=== PATIENT | female | born 1940 | race Caucasian/White ===

== ENCOUNTER → 2017-08-20 10:40 | Outpatient (CLI) | payer MEDICARE, SELFPAY ==
--- NOTE | 2017-08-20 10:42 | DI.US.S_ITS ---
PROCEDURE: US ARTERIAL DUPLEX LE RT INDICATIONS: right lower leg pain with walking, imp with rest, recurs reg TECHNIQUE: Color and pulse Doppler interrogation was performed of the right lower extremity arterial system, with image documentation. COMPARISON: None. FINDINGS: Common femoral artery: 119 cm/sec, with triphasic flow. Deep femoral artery: 85 cm/sec, with triphasic flow. Proximal superficial femoral artery: 79 cm/sec, with triphasic flow. Mid superficial femoral artery: 81 cm/sec, with triphasic flow. Distal superficial femoral artery: 80 cm/sec, with triphasic flow. Popliteal artery: 60 cm/sec, with triphasic flow. Posterior tibial artery: 89 cm/sec, with biphasic flow. Anterior tibial artery/dorsalis pedis: 56 cm/sec, with biphasic flow. Freed-scale imaging description: Mild atheromatous plaque is present throughout the right lower extremity arteries. IMPRESSION: 1. No hemodynamically significant stenosis is visualized from the common femoral artery to the ankle. No sonographic findings to explain patient's claudication symptoms. Dictated by: Shraddha Sullivan M.D. on 08/20/2017 at 11:36 Approved by: Shraddha Sullivan M.D. on 08/20/2017 at 11:41
== END ==
PROVIDERS: Family Provider Physician Assistant; PCP Physician Assistant; Visit Provider Physician Assistant
DX: M79.604 Pain in right leg (principal)
CPT/HCPCS: 93926

== ENCOUNTER → 2018-09-14 07:46 | Outpatient (CLI) | payer MEDICARE, SELFPAY ==
[2018-09-14 09:34] LABS: Alanine Aminotransferase 34 IU/L (9-52); Albumin 4.1 g/dL (3.5-5.0); Albumin Globulin Ratio 1.5 (1.0-2.8); Alkaline Phosphatase 70 U/L (38-126); Aspartate Aminotransferase 30 IU/L (14-36); BUN Creatinine Ratio 21.1 (6-22); Bilirubin Total 0.5 mg/dL (0.2-1.3); Blood Urea Nitrogen 19 mg/dL (7-17); Calcium 9.8 mg/dL (8.4-10.2); Carbon Dioxide 30 mmol/L (22-32); Chloride 103 mmol/L (98-107); Cholesterol 223 mg/dL (140-199); Estimated Glomerular Filt Rate > 60.0 mL/min (>60); Globulin 2.8 g/dL (1.7-4.1); Glucose 101 mg/dL (80-110); HDL Cholesterol 72 mg/dL (40-60); HEMOLYSIS < 15 (0-50); LDL Cholesterol Calculated 134 mg/dL (<100); Potassium 4.5 mmol/L (3.4-5.1); Sodium 140 mmol/L (137-145); Total Protein 6.9 g/dL (6.3-8.2); Triglycerides 86 mg/dL (35-150)
[2018-09-14 09:53] LABS: Creatinine Urine Random 254.9 mg/dL
[2018-09-14 10:00] LABS: Microalbumi Creatinin Ratio Ur 7.8 ug/mg CR (<30)
== END ==
PROVIDERS: PCP Physician Assistant; Visit Provider Physician Assistant
DX: E78.5 Hyperlipidemia, unspecified (principal); I10 Essential (primary) hypertension
CPT/HCPCS: 36415; 80053; 80061; 82043; 82570

== ENCOUNTER → 2018-09-28 08:49 | Outpatient (CLI) | payer MEDICARE, SELFPAY ==
--- NOTE | 2018-09-28 08:50 | DI.MRI.S_ITS ---
PROCEDURE: MR LUMBAR SPINE WO CON INDICATIONS: Persistant low back pain with radiculopathy right side TECHNIQUE: Noncontrast sagittal T1 spin echo and T2 fast echo, sagittal STIR, axial T1 and T2 fast spin echo through the lumbar spine. In cases with scoliosis, additional coronal T2 fast spin echo may be performed. COMPARISON: None. FINDINGS: Image quality: Excellent. Alignment and Curvature: Suspect transitional anatomy with prominent S1-S2 disc. There is grade 1 anterolisthesis of L4 on L5 and minimal retrolisthesis of L5 on S1. Bone Marrow: Type degenerative endplate signal changes in lumbar spine. No acute vertebral body compression fractures. Spinal Cord: Conus medullaris terminates at the L1-L2 level. Visualized cord demonstrates normal signal and size. Paraspinous Soft Tissues: No paravertebral masses. Small right renal cysts are seen. L1-L2: Preserved disc height. There is mild disc desiccation. There is mild posterior disc bulge. Mild bilateral facet arthropathy and hypertrophy of ligamentum flavum. The central canal is patent. No foraminal stenosis. No nerve root impingement. L2-L3: Mild loss of disc height and mild disc desiccation. There is diffuse posterior and posterior lateral disc bulge. Mild bilateral facet arthropathy and hypertrophy of ligamentum flavum. The central canal is mildly narrowed. Severe right and moderate left foraminal stenosis. Right L3 nerve root impingement. L3-L4: Mild loss of disc height and mild disc desiccation. There is diffuse posterior bulge and posterior lateral disc bulge. Moderate bilateral facet arthropathy and moderate hypertrophy of ligamentum flavum. Epidural lipomatosis. The central canal is severely narrowed. Moderate bilateral foraminal stenosis. Possible bilateral L4 nerve root impingement. L4-L5: Moderate loss of disc height and mild disc desiccation. There is diffuse posterior bulge and larger right posterior lateral disc complex. Severe bilateral facet arthropathy and moderate hypertrophy of ligamentum flavum. Epidural lipomatosis. The central canal is severely narrowed. Severe right and [id number] left foraminal stenosis. There is right L5 nerve root impingement. L5-S1: Moderate loss of disc height and mild disc desiccation. There is diffuse posterior bulge and disc ossified complex. Mild bilateral facet arthropathy. The central canal is mildly narrowed. Moderate left and mild right foraminal stenosis. No discrete nerve root impingement. S1-S2: Normal. IMPRESSION: 1. Multilevel degenerative disc disease and facet arthropathy as described. 2. Severe central canal stenosis at L3-L4 and L4-L5. 3. Multilevel foraminal stenosis as described, most pronounced at L4-L5 on the right. 4. Suspect transitional anatomy. Please confirm vertebral level on radiographs prior to surgery and interventional procedures. Dictated by: Tim Daly M.D. on 09/28/2018 at 11:55 Approved by: Tim Daly M.D. on 09/28/2018 at 18:10
== END ==
PROVIDERS: PCP Physician Assistant; Visit Provider Physician Assistant
DX: M51.16 Intervertebral disc disorders with radiculopathy, lumbar region (principal); M54.5 Low back pain; M48.061 Spinal stenosis, lumbar region without neurogenic claudication
CPT/HCPCS: 72148

== ENCOUNTER → 2018-11-30 08:21 | Outpatient (CLI) | payer MEDICARE, SELFPAY ==
[2018-11-30 09:29] LABS: Add Manual Diff / Slide Review NO; Basophils Absolute Auto 0 /uL (0-100); Basophils Percent Auto 0.6 % (0-2); Eosinophils Absolute Auto 100 /uL (0-450); Eosinophils Percent Auto 1.8 % (2-4); Hematocrit 45.8 % (36-46); Hemoglobin 15.4 g/dL (12.0-16.0); Lymphocytes Absolute Auto 1600 /uL (1100-4500); Lymphocytes Percent Auto 19.9 % (25-40); Mean Corpuscular HGB Conc 33.7 % (30-36); Mean Corpuscular Volume 97.8 fL (80-100); Monocytes Absolute Auto 500 /uL (0-900); Monocytes Percent Auto 6.8 % (3-14); Neutrophils Absolute Auto 5600 /uL (1500-7000); Neutrophils Percent Auto 70.9 % (50-75); Platelet Count 237 X10^3/uL (150-400); Red Blood Cell Count 4.69 X10^6/uL (4.0-5.2); Red Cell Distribution Width 14.6 % (11.6-14.8); White Blood Cell Count 7.9 X10^3/uL (4.5-11.0)
[2018-11-30 09:40] LABS: BUN Creatinine Ratio 22.2 (6-22); Blood Urea Nitrogen 20 mg/dL (7-17); Calcium 10.1 mg/dL (8.4-10.2); Carbon Dioxide 25 mmol/L (22-32); Chloride 105 mmol/L (98-107); Estimated Glomerular Filt Rate > 60.0 mL/min (>60); Glucose 108 mg/dL (80-110); HEMOLYSIS < 15 (0-50); Potassium 4.1 mmol/L (3.4-5.1); Sodium 139 mmol/L (137-145)
== END ==
PROVIDERS: PCP Physician Assistant; Visit Provider Hospitalist
DX: Z01.810 Encounter for preprocedural cardiovascular examination (principal); Z01.818 Encounter for other preprocedural examination; Z01.811 Encounter for preprocedural respiratory examination
CPT/HCPCS: 36415; 80048; 85025; 93005

== ENCOUNTER → 2019-01-29 12:44 | Outpatient (CLI) | payer MEDICARE, SELFPAY ==
[2019-01-29 13:36] LABS: BUN Creatinine Ratio 18.8 (6-22); Blood Urea Nitrogen 15 mg/dL (7-17); Calcium 10.2 mg/dL (8.4-10.2); Carbon Dioxide 28 mmol/L (22-32); Chloride 103 mmol/L (98-107); Estimated Glomerular Filt Rate > 60.0 mL/min (>60); Glucose 116 mg/dL (80-110); HEMOLYSIS 16 (0-50); Potassium 4.8 mmol/L (3.4-5.1); Sodium 140 mmol/L (137-145)
== END ==
PROVIDERS: PCP Physician Assistant; Visit Provider Orthopaedic Surgery
DX: Z01.818 Encounter for other preprocedural examination (principal)
CPT/HCPCS: 36415; 80048

== ENCOUNTER 2019-02-10 05:59 | Inpatient (IN) | payer MEDICARE, SELFPAY ==
[2019-01-25 09:47] VITALS: BMI 29.3
[2019-02-10] VITALS (19 sets, daily range): BP systolic 122–159; BP diastolic 55–85; PULSE 56–80; RESP 10–18; TEMP 36.2–37.2; O2SAT 92–98; BMI 28.5
[2019-02-10] MEDS: LACTATED RINGERS 1,000 ML 42 ML IV ×2 (07:02→09:30)
--- NOTE | 2019-02-10 07:28 | PM.PREOP ---
Pre-operative Note Interval Note History & Physical reviewed/Exam performed by Physician: Yes Changes to H&P: No
[2019-02-10] MEDS: CEFAZOLIN 2 GM/100 ML FROZ.PIGGY IV ×3 (08:09→23:51)
--- NOTE | 2019-02-10 08:42 | SUR.OPER ---
Part 1: Right lateral on padded OR table. Head on pillow, gel axillary roll, pillow to support left arm. Legs flexed, pillows between legs, gel pad under down leg and ankle. Multiple passes of 3 inch cloth tape across shoulder, hip, upper and lower legs to secure patient on OR table.
--- NOTE | 2019-02-10 08:43 | SUR.OPER ---
Prone on spine table, head in foam head support, padded chest and pelvic supports, gel pad at knees, lower legs supported by pillows; nipples, genitalia and toes free of pressure, arms secured on foam padded arm boards at <90 degrees abduction. Tape over blanket at thigh secured to table.
[2019-02-10] MEDS: VANCOMYCIN 1,000 MG VIAL 1000 MG TOP (09:30)
[2019-02-10] MEDS: BUPIVACAINE 0.5% (PF) 4 ML, MORPHINE-PF 4 MG, BUTORPHANOL 1 MG, fentaNYL 100 MCG INJ (09:31)
[2019-02-10] MEDS: THROMBIN (RECOMBINANT) 5,000 UNIT VIAL 5000 UNIT TOP (09:31)
[2019-02-10] MEDS: SODIUM CHLORIDE 0.9% 1,000 ML, GENTAMICIN 80 MG IRR ×2 (09:32)
--- NOTE | 2019-02-10 10:42 | P.OP_ITS ---
Operative Date/Time/Diagnoses Date of procedure: 02/10/19 Time of procedure: 10:42 Pre-op diagnosis: Lumbar stenosis with radiculopathy Lumbar spondylolisthesis Lumbar scoliosis Post-op diagnosis: same Procedure & Clinicians Procedure: L4-5 anterior fusion with cage L4-5 posterior fusion with screws Iliac crest bone graft aspirate L4-5 laminectomy Use of microscope Placement of epidural catheter Same procedure as scheduled: Yes Indications: [age] year old female with intractable pain from stenosis. They had failed conservative management and requested operative intervention. Risks and benefits of surgery were discussed and appropriate consents were obtained. Surgeon: Ermias Rivera Resident Programs Assistant: Elif Abdi Anesthesia Type: General Operative Notes Findings: None Closure Type: primary Specimen(s): none sent Prosthetic devices, grafts, tissues, transplants, or devices: NuVasive XLIF cage and MAS Reline screws Applied: catheter Estimated Blood Loss (mL): 30 Blood products transfused: none Procedure in detail: Patient was brought to the operating room and intubated on the table. Time-out was performed. They were then rolled over to the lateral decubitus position with the [id number]. The table was bent and they were taped down in the correct position. X-rays were taken to confirm a true AP and lateral. Preoperative antibiotics were given. The left flank was prepped and draped in standard sterile fashion. Using fluoroscopy, a 3 cm incision was made above the iliac crest. We bluntly dissected down with Metzenbaum scissors and split the 3 abdominal muscle layers. We dissected out the retroperitoneal space and using finger guidance, brought our 1st dilator down to the psoas muscle. Using neuromonitoring and fluoroscopy, we placed it through the psoas onto the L4-5 disc space in an anterior position and gradually pulled the dilator posteriorly along the disc space. We placed our guidewire and measured our depth for the retractor. We then dilated with the next 2 dilators and then placed our retractor over the dilators. Position was confirmed with fluoroscopy and the retractor was locked down to the bar. We opened up the retractor and checked with neuro monitoring. We then placed the ramya and again checked with neuro monitoring. The retractor was opened further and the ALL retractor was placed. An annulotomy was performed. We then performed a complete diskectomy with ring curette, pituitary, box osteotome. A Jordan was advanced across the disc space under fluoroscopy to release the lateral annulus on the opposite side. We then used sequentially larger trials and confirmed under fluoroscopy. An XLIF cage was packed with Osteocel bone graft and impacted into the L4-5 disc space with fluoroscopy for the anterior fusion at this level. The wound was irrigated. The retractor was closed down. The ramya was removed. We carefully removed the retractor with direct visualization to make sure there was no neurovascular or abdominal injury. Final x-rays were taken. The muscle fascia was closed, superficial tissue was closed. The skin was closed. Sterile dressing was placed. The patient was then rolled over on the well-padded prone position on the Demario table. Using fluoroscopy for localization, a 5 cm incision was made to the well-marked right of the midline. Bovie used to split the fascia. We then used fluoroscopy and neural monitoring to a percutaneously placed Jamshidi needles down the right pedicles of L4 and L5. These were changed out over guidewires, tapped and screw shanks were placed. We then opened up the retractor. The posterolateral gutter was opened up and the transverse processes of L4 and L5 were decorticated. We cleared medially. We brought in the microscope. A right-sided laminectomy was performed at L4-5 using a bur and Kerrison rongeur is. We carefully depress the dura and went across the midline to decompress the entire canal on both sides. We cleared out the facet hypertrophy and removed the entire medial facet as well as part of the lateral half of the facet and cleared out the neural foramen. In the end the ball probe could be swept cephalad caudally across the midline out through the foramen and everything was wide open. An epidural catheter was primed with 4mL of 0.5% bupivacaine, 100 mcg fentanyl, 4 mg Duramorph, 1 mg Stadol. The dura was depressed under the cephalad lamina with a ball probe and the epidural catheter was gently advanced 6 cm cephalad. The screw heads were placed on the shanks, a rashad was measured, placed and the set screws locked down. The wound was copiously irrigated. A small stab incision was made over the PSIS and a Jamshidi needle was placed into the iliac crest and several mL of bone marrow was aspirated. This was mixed with our locally harvested bone graft as well as the remaining Osteocel and placed in the posterolateral gutter for fusion at L4-5. The fascia was then closed. The epidural was then injected without resistance. The catheter was pulled and we closed more over the fascia. We then made a 4 cm incision on the left side with fluoroscopy. We split down through the fascia with Bovie. We again percutaneously placed Jamshidi needles down the left pedicles of L4 and L5 with fluoroscopy and neural monitoring. These were changed over guidewires to tapped and screws. A rashad was placed and locked down. Final x-rays were taken. The wound was irrigated. The fascia was closed. Vancomycin powder was placed in the wounds. The superficial and skin were closed. Sterile dressing was placed. The patient was then rolled over, extubated, brought to the recovery room with no complications. Complications: none Post-operative Condition: stable Disposition: PACU Plan for aftercare: Inpatient. Up with therapy.
[2019-02-10] MEDS: HYDROMORPHONE 2 MG INJ 0.5 MG IV (11:19)
[2019-02-10] MEDS: LACTATED RINGERS 1,000 ML 125 ML IV ×3 (13:46→22:04)
[2019-02-10] MEDS: CELECOXIB 200 MG CAPSULE 400 MG PO (13:54)
--- NOTE | 2019-02-10 15:39 | PT.IIE ---
this is to certify that i have reviewed this documentation and is involved with this pt's care. Current Diagnoses Spondylolisthesis, lumbar region (02/10/19) Spinal stenosis, lumbar region with neurogenic claudication (02/10/19) Strain of muscle, fascia and tendon of lower back, initial encounter (02/10/19) Surgery Performed Operation Date: 02/10/19 07:45 Actual Procedures p L45 anterior & posterior instrumentated fusion w/ bone graft, L45 laminectomy - Ermias Rivera MD Surgical History (Last Updated 01/25/19 @ 10:13 by Rosalva Hendrickson RN) History of colonoscopy (Acute) Hx of bilateral cataract extraction (Acute) Hx of dilation and curettage (Acute) Hx of tonsillectomy (Acute) Medical History (Last Updated 01/25/19 @ 10:13 by Rosalva Hendrickson RN) Anxiety about health (Acute ~01/2019) Arthritis (Acute) Back pain (Acute) Basal cell carcinoma (Resolved Unknown) Bilateral sciatica (Chronic ~04/2017) COPD (chronic obstructive pulmonary disease) (Chronic Unknown) Hyperlipidemia (Chronic Unknown) Hypertension (Chronic Unknown) Numbness and tingling (Acute) Osteopenia (Chronic 10/2012) Pneumonia (Acute) Rosacea (Chronic Unknown) Sciatica (Acute) Physical Therapy Inpatient Evaluation/Re-Eval M1 PT/OT-IP Prior Functional Status Start: 02/10/19 16:56 Freq: NEEDED Status: Active Protocol: Document 02/10/19 15:39 MT (Rec: 02/10/19 17:28 MT [email or web address]) Medical Review Prior Functional Status Medical History Reviewed Yes Diet/Fluid Consistency Regular Communication Pt able to make needs known Mobility and Gait Pt reports being independent with all gait and mobility without use of AD. Activities of Daily Living and IADL's Pt reports being independent with all ADL's Social History Household Members none Living Arrangements House Number of Floors (Floors) One Floor Number of Stairs To Enter/Railing? 5 stairs, handrail on both sides and able to reach both at the same time Home Environment High Toilet,Tub/Shower Home Equipment Front Wheel Walker,Four Wheel Walker,Straight Cane,Raised Toilet Seat w/Armrests,Shower Seat with Backrest,Hand Held Shower,Long Handled Sponge, Sock Aid Employment Status Unemployed Additional Social History Comment firend will be staying with pt until gi. Pt says that her friend uses a cane and is more frail, so will not be able to help her with heavier activities M2 PT-IP Current Condition Start: 02/10/19 16:56 Freq: NEEDED Status: Active Protocol: Document 02/10/19 15:39 MT (Rec: 02/10/19 17:28 MT [email or web address]) Physical Therapy Current Condition Current Condition Evaluation Date 02/10/19 Treatment Diagnosis reduced ability with gait and impaired mobility s/p L4-5 spinal fusion Onset Date 02/10/19 Precautions Lumbar Precautions Log Roll,No Twisting,Limit Bending,Lifting Restriction of 10 lbs,Gait Belt above Incisional Area M3 PT-IP Subjective Start: 02/10/19 16:56 Freq: NEEDED Status: Active Protocol: Document 02/10/19 15:39 MT (Rec: 02/10/19 17:28 MT [email or web address]) Subjective Physical Therapy Visit Type Type Initial Evaluation Visit Start Time 15:39 Visit Stop Time 16:19 Total Visit Minutes 40 Number of COUNTY [place] Visits 0 Physical Therapy Visit Comments Patient Comments Pt was agreeable to participate in PT eval Therapy Pain Assessment Pain When Pain Assessed At Rest Pain Present Pain Present Denied Pain M4 PT-IP Mobility and Gait Start: 02/10/19 16:56 Freq: NEEDED Status: Active Protocol: Document 02/10/19 15:39 MT (Rec: 02/10/19 17:28 MT [email or web address]) PT-Bed Mobility Assessment Rolling Type of Rolling Log Rolling,Roll to Right Level of Assist Moderate Assistance Supine to Sit Supine to Sit Minimal Assistance,1 Person Assistance Scooting Scooting to Edge of Bed Contact Guard Assistance, Minimal Assistance Scooting Up and Down in Bed Contact Guard Assistance PT-Transfer Assessment Sit to and From Stand Sit to and from Stand Minimal Assistance,Moderate Assistance,1 Person Assistance Equipment Transfer Assistive Device Gait Belt,Front Wheeled Walker Orthotic/Prosthetic Devices or Brace: No Transfers Transfer Destination Chair Transfer Technique Stand Step Pivot Transfer Ability Level of Assist Minimal Assistance,Moderate Assistance,1 Person Assistance Comments Mobility Comments Pt was educated on log roll technique and was able to perform with modA and maximal cueing for sequencing and hand placement to push off from. Pt performed sit to stand with Stella and 2WW. Pt initiated walking and was going to continue ambulating and said that she was feeling fine and had no symptoms of dizziness, but was exhibiting shakiness and signs of confusion, so was asked to sit in the chair and required ModA for the stand to sit portion of the transfer . Gait Assessment Gait Gait Assistance Required: Minimum Assistance,Moderate Assistance Able to Maintain Weight Bearing Status Yes During Gait Assistive Devices Assistive Device Gait Belt,Front Wheeled Walker Orthotic/Prosthetic Devices or Brace: No Gait Deviations General Gait Pattern Antalgic,Decreased Stride Length,Decreased Feet Clearance,Step-to Gait Factors Limiting Gait Function Factors Limiting Gait Function Decreased Activity Tolerance, Decreased Sensation,Decreased Strength,Difficulty Following Directions,Incoordination, Limited Range of Motion,Pain, Poor Balance,Poor Safety Awareness Comments Gait Comments Patient took 3 steps and was going to continue with ambulation. She reported that she felt like she could continue walking, but was increasing to a modA and was demonstrating signs of shakiness and increased confusion with following directions, so she was asked to sit and vital signs were assessed. BP 136/73, O2 was 94%, and Hr was 67. She reported no symptoms of light- headedness or dizziness. She was positioned in her chair with her table and call light in reach and nursing was notifed of her position and to place a chair alarm on her due to her increased confusion . PT-Balance Assessment Sitting Balance and Reactions Static Sitting Balance Ability Good Dynamic Sitting Balance Ability Good Standing Balance and Reactions Static Standing Balance Ability Fair Dynamic Standing Balance Ability Fair Device Used 2WW M5 PT-IP Objective Assessments Start: 02/10/19 16:56 Freq: NEEDED Status: Active Protocol: Document 02/10/19 15:39 MT (Rec: 02/10/19 17:28 MT [email or web address]) Orientation Orientation/Cognition Level of Alertness Confusional State Orientation Name,Place,Situation Language Function Ability No Deficits Noted Safety Awareness Decreased Safety Awareness Memory Description Short Term Impaired Comments Pt appeared oriented and was able to make needs known. Towards the end of the session when pt was standing, she began showing signs of confusion and was having difficulty with following directions. She reported that she felt like she could continue walking, but was showing increased signs of weakness and fatigue, so her safety awareness was impaired. Gross Range of Motion Lower Extremity ROM Assessment Within Functional Limits Strength Lower Extremity Strength Assessment Within Functional Limits Comments Strength Comments Pt presented with B LE strength WFL. Sensation Assessment Comments Sensation Comments Pt reported during ambulation that her legs felt wonky, but reported that she had full feeling and sensation in her legs Muscle Tone Muscle Tone WNL Yes M6 PT-IP Treatment Start: 02/10/19 16:56 Freq: NEEDED Status: Active Protocol: Document 02/10/19 15:39 MT (Rec: 02/10/19 17:28 MT [email or web address]) Physical Therapy Treatment Education Education Provided Precautions,Post-Op Packet, Safety M7 PT-IP Assessment and Plan Start: 02/10/19 16:56 Freq: NEEDED Status: Active Protocol: Document 02/10/19 15:39 MT (Rec: 02/10/19 17:28 MT [email or web address]) PT Summary Assessment and Plan Potential Rehabilitation Potential Good Status of Condition at Evaluation Evolving Summary Impairments Pain,ROM,Strength,Balance, Coordination,Sensation, Cognition,Bed Mobility, Transfers,Gait,Activity Tolerance Assessment Summary Pt presents to PT s/p L4/L5 spinal fusion. She was educated on her precautions and safety. Pt was educated on log rolling technique for her bed mobility. Pt was generally able to perform mobilty with ModA and 2WW. Durring, initiation of ambulation, pt became shakey and showed signs of confusion and was asked to sit down in chair instead. Pt shows decreased safety awareness, decreased activity tolerance, and increased unsteadiness putting her at a high fall risk. She would benefit from discharge to a SNF or 24/7 assistance at home depending on level of care that she requires. Caregiver training should be given if needed. Pt' s progress with ambulation and stairs will continued to be assessed in order to determine appropriate discharge destination. Goals Bed Mobility Goal Standby Assistance Transfer Goal Standby Assistance,Front Wheeled Walker Gait Goal Standby Assistance,Front Wheel Walker Gait Distance 150 ft Other Goals 5 stairs with bilateral handrail SBA Days to Meet Goals 5 Frequency of Treatment Frequency Of Treatment Twice a Day Treatment Plan Physical Therapy Treatment Plan Bed Mobility Training,Transfer Training,Gait Training, Therapeutic Exercise,Balance Retraining,Post Op Education, Discharge Planning,Hot or Cold Pack,Neuromuscular Re-ed Recommendations To Nursing Amount of Assist Needed 1 Person Assist Discharge Recommendations PT Discharge Recommendations Home with 24/7 Assist,SNF Rehab Other Discharge Recommendations SNF vs home with 24/7 assistance: depends on pt progress with stairs and ambulation and whether her friend staying with her can provide the level of assist that she will require when discharged.
[2019-02-10] MEDS: GABAPENTIN 300 MG CAPSULE PO (20:44)
[2019-02-10] MEDS: SENNOSIDES 8.6 MG TABLET 17.2 MG PO (20:44)
[2019-02-10] MEDS: DOCUSATE 100 MG CAPSULE PO (20:44)
[2019-02-10] MEDS: CELECOXIB 200 MG CAPSULE PO (20:44)
[2019-02-10] MEDS: diphenhydrAMINE 25 MG TABLET PO (23:52)
--- NOTE | 2019-02-11 01:01 | PC.NURSE ---
Addendum entered by Ludivina Vasquez R.N. 02/11/19 06:22: Has been repositioned by using Megan bed tilt as not wanting to turn otherwise. States she was able to sleep. Denies any pain. Original Note: 0010 Patient is alert and oriented. Breath sounds CTA with RA sat of 94%. HRR. Denies nausea. BT present but denies flatus. Indwelling catheter is patent; urine is clear, light yellow. Assisted to reposition onto side at shift change and now found having turned partially onto stomach; discussed importance to not twist so assist back onto back. Complains of itching and inability to sleep so medicated with Benadryl. Denies pain. Dressing to back is CDI. CMS intact. Wearing foot SCD's. Fall risk score is high and bed alarm is activated.
[2019-02-11 04:00] VITALS: BP 109/56; PULSE 72; RESP 20; TEMP 36.4; O2SAT 96
--- NOTE | 2019-02-11 06:32 | P.PN_ITS ---
Subjective Subjective Date Patient Seen: 02/11/19 Time Patient Seen: 06:32 Interval history: She is doing well. Has no pain. Was up yesterday with physical therapy to a chair. They thought she was a little bit wobbly while walking. Exam Vital Signs (past 8 hours): - 02/10/19 23:50 02/11/19 04:00 Temperature 97.7 F 97.6 F Pulse Rate 80 72 Respiratory Rate 18 20 Blood Pressure 130/55 L 109/56 L Pulse Oximetry 94 96 Oxygen Delivery Method Room Air Oxygen Flow Rate 0 Const Orientation: alert and oriented x3 Back/Spine/Pelvis Other: CDI. 5/5 motor both lower extremities Assessment & Plan Post-op Postoperative Procedures: Procedures Operation Date: 02/10/19 07:45 Actual Procedures Side Surgeon p L45 anterior & posterior instrumentated fusion w/ bone graft, L45 laminectomy Ermias Rivera MD She is doing great today. Continue to mobilize with physical therapy. Anticip ate discharge home tomorrow. We are still waiting on today's H&H.
[2019-02-11 07:07] LABS: Hematocrit 37.4 % (36-46); Hemoglobin 12.7 g/dL (12.0-16.0)
[2019-02-11 09:00] VITALS: BP 138/73; PULSE 82; RESP 13; TEMP 36.8; O2SAT 93
[2019-02-11] MEDS: BISOPROLOL 5 MG TABLET 2.5 MG PO (09:08)
[2019-02-11] MEDS: hydroCHLOROthiazide 25 MG TABLET 6.25 MG PO (09:09)
[2019-02-11] MEDS: CELECOXIB 200 MG CAPSULE PO ×2 (09:10→20:26)
[2019-02-11] MEDS: DOCUSATE 100 MG CAPSULE PO ×2 (09:10→20:26)
[2019-02-11] MEDS: MULTIVITAMIN 1 TABLET 1 TAB PO (09:10)
[2019-02-11] MEDS: SODIUM CHLORIDE 0.9% FLUSH 10 ML IV ×2 (09:11→20:26)
--- NOTE | 2019-02-11 09:23 | PT.IPTN ---
Current Diagnoses Spondylolisthesis, lumbar region (02/10/19) Spinal stenosis, lumbar region with neurogenic claudication (02/10/19) Strain of muscle, fascia and tendon of lower back, initial encounter (02/10/19) Surgery Performed Operation Date: 02/10/19 07:45 Actual Procedures p L45 anterior & posterior instrumentated fusion w/ bone graft, L45 laminectomy - Ermias Rivera MD Physical Therapy Treatment Note M2 PT-IP Current Condition Start: 02/10/19 16:56 Freq: NEEDED Status: Active Protocol: Document 02/10/19 15:39 MT (Rec: 02/10/19 17:28 MT [id number]) Physical Therapy Current Condition Current Condition Evaluation Date 02/10/19 Treatment Diagnosis reduced ability with gait and impaired mobility s/p L4-5 spinal fusion Onset Date 02/10/19 Precautions Lumbar Precautions Log Roll,No Twisting,Limit Bending,Lifting Restriction of 10 lbs,Gait Belt above Incisional Area M3 PT-IP Subjective Start: 02/10/19 16:56 Freq: NEEDED Status: Active Protocol: Document 02/11/19 09:23 AB (Rec: 02/11/19 11:18 AB [id number]) Subjective Physical Therapy Visit Type Type Treatment Note Visit Start Time 09:23 Visit Stop Time 09:47 Total Visit Minutes 23 Number of SCHOOL [employer] Visits 0 Physical Therapy Visit Comments Patient Comments pt agreeable to do PT Therapy Pain Assessment Pain Present Pain Present Denied Pain M4 PT-IP Mobility and Gait Start: 02/10/19 16:56 Freq: NEEDED Status: Active Protocol: Document 02/11/19 09:23 AB (Rec: 02/11/19 11:18 AB [id number]) PT-Bed Mobility Assessment Supine to Sit Supine to Sit Standby Assistance PT-Transfer Assessment Sit to and From Stand Sit to and from Stand Contact Guard Assistance,1 Person Assistance,Use of Upper Extremities Equipment Transfer Assistive Device Gait Belt,Front Wheeled Walker Orthotic/Prosthetic Devices or Brace: No Transfers Transfer Destination Chair Transfer Technique pt ambulated using FWW Transfer Ability Level of Assist Contact Guard Assistance,1 Person Assistance,Use of Upper Extremities Comments Mobility Comments BP: 121/72 pt completed log roll supine to sit SBA. pt was able to complete without cues. pt completed sit to stand CGA from EOB and ambulated in room using FWW CGA ~ 20ft. BP: 124/77 after ambulation. pt agreed to ambulate in the hallway and completed ~ 100+150 ft using FWW SBA to CGA. pt also completed stair climbing. pt agreed to sit up on the chair afterwards. positioned on the chair. call light and table placed within reach. Gait Assessment Gait Gait Assistance Required: Standby Assistance,Contact Guard Assist Distance (Feet) 150 Able to Maintain Weight Bearing Status Yes During Gait Assistive Devices Assistive Device Gait Belt,Front Wheeled Walker Orthotic/Prosthetic Devices or Brace: No Factors Limiting Gait Function Factors Limiting Gait Function Decreased Activity Tolerance, Decreased Strength,Poor Balance,Poor Safety Awareness Stair Climbing Assessment Evaluation Level of Assist On Stairs Contact Guard Assistance,1 Person Assistance Devices Stair Climbing Assistive Devices Left Railing,Right Railing Technique/Endurance Stair Climbing Direction Ascend and Descend Stair Climbing Technique Step Over Step Number of Steps Climbed 3 Stair Climbing Set # Repetitions (reps) 2 Comments Stair Climbing Comments pt completed up/down steps using bilateral rails CGA an then completed just holding on to one rail CGA. M5 PT-IP Objective Assessments Start: 02/10/19 16:56 Freq: NEEDED Status: Active Protocol: Document 02/10/19 15:39 MT (Rec: 02/10/19 17:28 MT [id number]) Orientation Orientation/Cognition Level of Alertness Confusional State Orientation Name,Place,Situation Language Function Ability No Deficits Noted Safety Awareness Decreased Safety Awareness Memory Description Short Term Impaired Comments Pt appeared oriented and was able to make needs known. Towards the end of the session when pt was standing, she began showing signs of confusion and was having difficulty with following directions. She reported that she felt like she could continue walking, but was showing increased signs of weakness and fatigue, so her safety awareness was impaired. Gross Range of Motion Lower Extremity ROM Assessment Within Functional Limits Strength Lower Extremity Strength Assessment Within Functional Limits Comments Strength Comments Pt presented with B LE strength WFL. Sensation Assessment Comments Sensation Comments Pt reported during ambulation that her legs felt wonky, but reported that she had full feeling and sensation in her legs Muscle Tone Muscle Tone WNL Yes M6 PT-IP Treatment Start: 02/10/19 16:56 Freq: NEEDED Status: Active Protocol: Document 02/11/19 09:23 AB (Rec: 02/11/19 11:18 AB [id number]) Physical Therapy Treatment Education Education Provided Precautions,Safety M7 PT-IP Assessment and Plan Start: 02/10/19 16:56 Freq: NEEDED Status: Active Protocol: Document 02/11/19 09:23 AB (Rec: 02/11/19 11:18 AB [id number]) PT Summary Assessment and Plan Potential Rehabilitation Potential Good Summary Impairments Pain,ROM,Strength,Balance,Bed Mobility,Transfers,Gait, Activity Tolerance Progress Towards Goals Progressing Toward Goals Assessment Summary pt progressing with mobility requiring CGA and cues. will have to conduct caregiver training when appropriate. Goals Bed Mobility Goal Standby Assistance Transfer Goal Standby Assistance,Front Wheeled Walker Gait Goal Standby Assistance,Front Wheel Walker Gait Distance 150 ft Other Goals 5 stairs with bilateral handrail SBA Days to Meet Goals 5 Frequency of Treatment Frequency Of Treatment Twice a Day Treatment Plan Physical Therapy Treatment Plan Bed Mobility Training,Transfer Training,Gait Training, Therapeutic Exercise,Balance Retraining,Post Op Education, Discharge Planning,Hot or Cold Pack,Neuromuscular Re-ed Recommendations To Nursing Amount of Assist Needed 1 Person Assist Discharge Recommendations PT Discharge Recommendations Home with Assistance
--- NOTE | 2019-02-11 11:11 | OT.IP.EVAL ---
Current Diagnoses Spondylolisthesis, lumbar region (02/10/19) Spinal stenosis, lumbar region with neurogenic claudication (02/10/19) Strain of muscle, fascia and tendon of lower back, initial encounter (02/10/19) Surgery Performed Operation Date: 02/10/19 07:45 Actual Procedures p L45 anterior & posterior instrumentated fusion w/ bone graft, L45 laminectomy - Ermias Rivera MD Past Medical History (Last Updated 01/25/19 @ 10:13 by Rosalva Hendrickson RN) Anxiety about health (Acute ~01/2019) Arthritis (Acute) Back pain (Acute) Basal cell carcinoma (Resolved Unknown) Bilateral sciatica (Chronic ~04/2017) COPD (chronic obstructive pulmonary disease) (Chronic Unknown) Hyperlipidemia (Chronic Unknown) Hypertension (Chronic Unknown) Numbness and tingling (Acute) Osteopenia (Chronic 10/2012) Pneumonia (Acute) Rosacea (Chronic Unknown) Sciatica (Acute) Surgical History (Last Updated 01/25/19 @ 10:13 by Rosalva Hendrickson RN) History of colonoscopy (Acute) Hx of bilateral cataract extraction (Acute) Hx of dilation and curettage (Acute) Hx of tonsillectomy (Acute) Occupational Therapy Inpatient Evaluation/Re-Eval M1 PT/OT-IP Prior Functional Status Start: 02/11/19 11:38 Freq: NEEDED Status: Active Protocol: Document 02/11/19 10:30 [facility] (Rec: 02/11/19 11:52 [facility] [id number]) Medical Review Prior Functional Status Medical History Reviewed Yes Diet/Fluid Consistency Regular Communication Pt able to make needs known Mobility and Gait Pt reports being independent with all gait and mobility without use of AD. Activities of Daily Living and IADL's Pt reports being independent with all ADL's Social History Household Members none Living Arrangements House Number of Floors (Floors) One Floor Number of Stairs To Enter/Railing? 5 stairs, handrail on both sides and able to reach both at the same time Home Environment High Toilet,Tub/Shower Home Equipment Front Wheel Walker,Four Wheel Walker,Straight Cane,Raised Toilet Seat w/Armrests,Shower Seat with Backrest,Hand Held Shower,Long Handled Sponge, Sock Aid Employment Status Unemployed Additional Social History Comment ashley will be staying with pt until . Pt says that her friend uses a cane and is more frail, so will not be able to help her with heavier activities M2 OT-IP Current Condition Start: 02/11/19 11:38 Freq: Status: Active Protocol: Document 02/11/19 10:30 [facility] (Rec: 02/11/19 11:52 [facility] [id number]) Occupational Therapy Current Condition Current Condition Evaluation Date 02/11/19 Treatment Diagnosis s/p L4-5 ant. & Post. instrumental fusion, L4-5 lami Diagnosis Onset Date 02/10/19 Post Operative Precautions Lumbar Precautions Log Roll,No Twisting,Limit Bending,Lifting Restriction of 10 lbs,Gait Belt above Incisional Area Weight Bearing Status Weight Bearing Status Weight Bear as Tolerated M3 OT- IP Subjective and Pain Start: 02/11/19 11:38 Freq: Status: Active Protocol: Document 02/11/19 10:30 [facility] (Rec: 02/11/19 11:52 [facility] [id number]) OT- Subjective Occupational Therapy Visit Type Type Initial Evaluation Visit Start Time 10:30 Visit Stop Time 11:11 Total Visit Minutes 41 Occupational Therapy Visit Comments Patient Comments Pt agreeable to get up for OT eval. Patient/Caregiver Goals To go home tomorrow. OT Pain Assessment Pain When Pain Assessed At Rest Pain Present Pain Present Denied Pain M4 OT- IP ADL's Start: 02/11/19 11:38 Freq: Status: Active Protocol: Document 02/11/19 10:30 [facility] (Rec: 02/11/19 11:52 [facility] [id number]) OT ADL-Grooming General Evaluation Grooming Ability Independent OT ADL-Oral Care General Eval Oral Care Ability Independent OT ADL-Dressing General Eval Lower Body Dressing Ability Standby Assistance Comments OT Dressing Comments Pt needing cues to sit down for all LB dressing needs. Prior pt stood up for all LB dressing needs. Pt's friend has all LB dressing equipment for pt to use if needed. OT ADL-Toileting General Evaluation Toileting Ability Standby Assistance Comments OT Toileting Comments Pt not having to use the toilet yet , but able to demonstrate good safety to wipe from the front however has difficulty to wipe from behind due to hx of rotator cuff injury. Educated pt on toilet paper aid information. OT ADL-Bathing Comments OT Bathing Comments Pt wanting to shower tomorrow. Pt has tub/shower and educated on shower chair versus tub bench . Pt able to do stairs with PT and should have no difficulty to step over the side of the tub with friend's assist and by hold on the wall. M5 OT- IP IADL's Start: 02/11/19 11:38 Freq: Status: Active Protocol: Document 02/11/19 10:30 [facility] (Rec: 02/11/19 11:52 [facility] [id number]) OT-Instrumental Activities of Daily Living Home Safety Awareness Home Safety Comments Pt's friend to stay with her and assist for all needs of IADl needs. Medication Management Medication Management No Deficits Identified Money Management Money Management No Deficits Identified M6 OT- IP Functional Cognition Start: 02/11/19 11:38 Freq: Status: Active Protocol: Document 02/11/19 10:30 [facility] (Rec: 02/11/19 11:52 [facility] [id number]) Cognitive Factors Limiting Selfcare Function Cognitive Ability Level of Alertness Alert Patient Orientation Name,Place,Situation Attention Span Ability Capable of Focused Attention, Capable of Sustained Attention Ability to Follow Commands Able to Follow Multi-Step Commands Memory Description No Deficits Noted Safety Awareness Decreased Ability to Apply Precautions,Underestimates Need for Assistance Cognitive Comments Cognitive Assessment Comments VC to slow down and incorporate back precautions for ADL needs. To keep FWW in front of her at all times. OT- Vision and Hearing OT- Hearing Assessment OT- Hearing Assessment WFL OT- Vision Assessment Visual Acuity WFL M7 OT- IP Mobility and Balance Start: 02/11/19 11:38 Freq: Status: Active Protocol: Document 02/11/19 10:30 [facility] (Rec: 02/11/19 11:52 [facility] [id number]) OT-Transfer Assessment Sit to and From Stand Sit to and from Stand Standby Assistance Transfers Transfer Ability Standby Assistance Technique Transfer Destination Chair,Toilet Transfer Technique Stand Step Pivot Devices Transfer Assistive Devices Gait Belt,Front Wheeled Walker Comments Mobility Comments SBA with FWW. OT- Balance Assessment Sitting Balance and Reactions Static Sitting Balance Ability Normal Dynamic Sitting Balance Ability Normal Standing Balance and Reactions Static Standing Balance Ability Good M8 OT- IP Objective Assessments Start: 02/11/19 11:38 Freq: Status: Active Protocol: Document 02/11/19 10:30 [facility] (Rec: 02/11/19 11:52 [facility] [id number]) OT Gross Range of Motion Upper Extremity Range of Motion Assessment Right Impaired ROM Impairments Pt tends to move RUE in scaption due to hx of right rotator cuff injury. Pt states down the road may need to have right reverse total shoulder. OT Strength Upper Extremity Strength Assessment Right Impaired M9 OT- IP Assessment and Plan Start: 02/11/19 11:38 Freq: Status: Active Protocol: Document 02/11/19 10:30 [facility] (Rec: 02/11/19 11:52 [facility] [id number]) OT Summary Assessment and Plan Potential Rehabilitation Potential Excellent Analytic Complexity at Evaluation Low Summary OT Impairments Functional Mobility,Dressing, Toileting,Bathing,Toilet Transfers,Shower Transfers Progress Towards Goals Progressing Toward Goals Assessment Summary Pt low complexity and doing well and main barriers are needing to slow down and be sure to incorporate back precautions for ADL needs. Pt to go home with a friend to stay for two weeks. Goals Dressing Goal Standby Assistance Toileting Goal Independent Bathing Goal Standby Assistance Toilet Transfer Goal Independent Shower Transfer Goal Standby Assistance Patient/Caregiver Education Goal Demonstrate Post-Op Precautions,Caregiver Independent Assisting Patient Days to Meet Goals 2 Frequency of Treatment Frequency Of Treatment Once a Day Treatment Plan OT Treatment Plan ADL Training,Functional Mobility,Patient/Family Education,Discharge Planning Other Treatment Recommendations and Next shower/caregiver training Treatment Focus Discharge Recommendations OT Discharge Recommendations Home with Assistance
--- NOTE | 2019-02-11 12:10 | CM.DANOTE ---
Patient is a 78 year old female who was admitted on 02/10/19 for Lumbar Surgery. Pt has [facility] and [employer] for insurance and her PCP is Dr. Mignon Davenport. EMR was reviewed. Per Ortho MD, pt making progress and likely can d/c home tomorrow pending further PT. Per PT/OT, pt was shaky with a little confusion yesterday but progressed today and completed stairs and ambulated around the unit. SW met bedside with pt and OT and explained role and pt confirms she lives at home alone and is Independent at baseline and drives and is a . Pt's best friend from [place] is flying up to stay with pt for a few weeks until Thanksgiving for assist and pt's Dtr is her DPOA and supportive but not local. Pt states she feels much better today and anticipates d/c home with friend to stay tomorrow after showering and doing further PT/OT. Pt does not anticipate any d/c needs and denies any hx of HH or SNF. Plan: SW to follow for likely pt d/c home with friend to stay for assist tomorrow if medically stable. No SW needs at this time. PATO Pedroza Discharge Planning/Care Management CM Discharge Assessment Start: 02/11/19 12:06 Freq: Status: Active Protocol: Document 02/11/19 12:06 BF (Rec: 02/11/19 12:10 [id number]) Discharge Planning Assessment Assigned Patient Registration Supervisor PATO Baez DPOA/Assigned Designee Name Dtr Advance Directives? Yes: Living will History Provided By Patient,Medical Record Has Patient been admitted in last 30 No days? Prior Living Arrangements House Household Members none Type of transporation used prior to Drives own vehicle admit Independent with ADL's Yes Is patient alert and oriented? Yes Caregiver for Another No Patient/Family Preference OP PT Therapy,OP OT Therapy Barriers to Discharge No Discharge Plan Home Community Services Physical Therapy,Occupational Therapy Transportation Arrangement Patient's friend plans to stay with pt at d/c for a few weeks and can provide transport home Referrals Initiated None needed Whiteboard Updated in Patient Room with Yes name and ext. # of Patient Registration Supervisor Review Status In Process Please Provide Date Initial DC 02/11/19 Assessment Was Performed Next Review Type Continued Stay Review Pre-Anesthesia Assessment Start: 01/25/19 09:47 Freq: Status: Complete Protocol: Document 01/25/19 09:47 [facility] (Rec: 01/25/19 10:33 [facility] [id number]) Pre-Anesthesia Assessment Patient Information Reviewed Via Phone Assessment Assessment Completed With Patient Diagnostic Results BMP/CMP,CBC,EKG,Urinalysis Comment Lab/EKG @ 11/30/18 Primary Care Provider Mignon Davenport Medical Clearance Received Yes Seen Specialist in Last 12 Months Yes Specialist Seen Orthopedist Comment PCP pre-op clearance in [facility] Primary Language Swedish Study Assistant Required No Height 167.64 cm Weight 82.554 kg Body Mass Index (BMI) 29.3 Hearing Ability Normal Visual Assist Glasses Dentition Type Teeth, Natural Present,Teeth, Missing Barriers to Learning None Hx Anesthesia Reactions No Hx Family Anesthesia Reaction No Hx Malignant Hyperthermia No Hx Blood Transfusions No Anesthesia Review Requested No alcohol intake current alcohol intake frequency 0-2 drinks per day Smoking Status Former smoker Tobacco type cigarettes how long ago did patient quit smoking Quit several years ago, light, social smoker Substance Use Type marijuana Comment Advised not to smoke marijuana 24 hours prior Pain Present Pain Reported Musculoskeletal Symptoms Back Pain,Joint Pain,Numbness, Tingling History of Falling (Recent or History of No ) Patient is completely paralyzed or No completely immobile Mental Status Oriented to own ability Is patient on oxygen? No Does patient have BOTELLO/SOB No Hx Sleep Apnea No Currently Taking a Beta Lina Yes: Bisoprolol Can You Climb a Flight of Stairs Without Yes SOB Hx Chest Pain No Hx SOB No Hx Syncope or Dizziness No Anti-Coagulant Therapy No Has a Assistant Director No Cardiac Testing No Hx Pacemaker/ICD No Pacemaker Rep Required? No Cardiac Clearance Received Not Applicable dysphagia No Urinary Catheter Present No Hx Urinary Self Catheterization No Diabetes No Patient No Lactating No Hx Drug Resistant Organism No Presence of External or Internal Medical Yes: Bilateral eye lens, tooth Devices insert Have you traveled outside the [facility] in the last 30 days? Marital Status / Lives With none Prior Living Arrangements House Number of Floors (Floors) One Floor Support System Child/Children Does the Patient Have Assistance After Yes Surgery Patient Discharge Plan Description Return Home Comment Daughter will fly in from [place] to assist after surgery Feels Safe in Current Environment Yes Been Physically Hurt or Threatened By a No Person in Current Environment Do you have thoughts of harming yourself None or others? Are you currently considering suicide? No Do you have a plan to hurt yourself or No Plan others? Do You Have Any Spiritual Beliefs That No May Affect Your HC Choices? Do You Have Any Cultural Practices That No May Affect Your HC Choices? Who Can We Speak to About Patient's Care Family, friends Identifying Code for Release of Patient Declines to issue Information Health Care Proxy/Next of Kin Patricia (friend) Health Care Proxy Emergency Contact Name Brooke (daughter) Alis ( friend) Emergency Contact Phone Number Brooke: [phone] Alis: [phone] Advance Directives? Yes: Living will Requested Patient Bring Advanced Yes Directives DOS PAC Instructions Durable medical equipment, Medications to take/avoid, Nasal antibiotic,No ETOH/ petroleum product on skin DOS, Post-op transportation,Pre- surgical wash,Sturdy shoes/ comfortable clothes,Do not bring valuables and remove jewelry
[2019-02-11] MEDS: HYDROCODONE/ACET 5/325 TABLET 1 TAB PO ×2 (12:36→20:26)
[2019-02-11] MEDS: diphenhydrAMINE 25 MG TABLET PO ×2 (12:51→23:41)
[2019-02-11 13:01] VITALS: BP 120/75; PULSE 72; RESP 14; TEMP 37.2; O2SAT 95
--- NOTE | 2019-02-11 14:27 | PT.IPTN ---
Current Diagnoses Spondylolisthesis, lumbar region (02/10/19) Spinal stenosis, lumbar region with neurogenic claudication (02/10/19) Strain of muscle, fascia and tendon of lower back, initial encounter (02/10/19) Surgery Performed Operation Date: 02/10/19 07:45 Actual Procedures p L45 anterior & posterior instrumentated fusion w/ bone graft, L45 laminectomy - Ermias Rivera MD Physical Therapy Treatment Note M2 PT-IP Current Condition Start: 02/10/19 16:56 Freq: NEEDED Status: Active Protocol: Document 02/10/19 15:39 MT (Rec: 02/10/19 17:28 MT [email or web address]) Physical Therapy Current Condition Current Condition Evaluation Date 02/10/19 Treatment Diagnosis reduced ability with gait and impaired mobility s/p L4-5 spinal fusion Onset Date 02/10/19 Precautions Lumbar Precautions Log Roll,No Twisting,Limit Bending,Lifting Restriction of 10 lbs,Gait Belt above Incisional Area M3 PT-IP Subjective Start: 02/10/19 16:56 Freq: NEEDED Status: Active Protocol: Document 02/11/19 14:27 AB (Rec: 02/11/19 16:31 AB [id number]) Subjective Physical Therapy Visit Type Type Treatment Note Visit Start Time 14:27 Visit Stop Time 14:58 Total Visit Minutes 31 Number of [employer] Visits 0 Physical Therapy Visit Comments Patient Comments pt agreeable to do PT Therapy Pain Assessment Pain Present Pain Present Denied Pain M4 PT-IP Mobility and Gait Start: 02/10/19 16:56 Freq: NEEDED Status: Active Protocol: Document 02/11/19 14:27 AB (Rec: 02/11/19 16:31 AB [id number]) PT-Bed Mobility Assessment Rolling Type of Rolling Log Rolling Level of Assist Standby Assistance Supine to Sit Supine to Sit Standby Assistance PT-Transfer Assessment Sit to and From Stand Sit to and from Stand Standby Assistance,Contact Guard Assistance,1 Person Assistance,Use of Upper Extremities Equipment Transfer Assistive Device Gait Belt,Straight Cane,Front Wheeled Walker Orthotic/Prosthetic Devices or Brace: No Transfers Transfer Destination Chair Transfer Ability Level of Assist Standby Assistance,Contact Guard Assistance,Use of Upper Extremities Comments Mobility Comments pt completed log roll supine to sit SBA and cues. pt completed sit <>stand from chair x 2 reps SBA and cues. pt tends to pull on FWW to get up. pt educated and cued for techniques. Gait Assessment Gait Gait Assistance Required: Standby Assistance,Contact Guard Assist Distance (Feet) 150 Able to Maintain Weight Bearing Status Yes During Gait Assistive Devices Assistive Device Gait Belt,Straight Cane,Front Wheeled Walker Orthotic/Prosthetic Devices or Brace: No Gait Deviations General Gait Pattern Decreased Feet Clearance Factors Limiting Gait Function Factors Limiting Gait Function Decreased Activity Tolerance, Decreased Strength,Limited Range of Motion,Poor Balance, Poor Safety Awareness Comments Gait Comments pt ambulated using FWW 100 + 150 ft SBA to CGA. cues for safety. pt stated that she will use her SPC but does not know how to use it. educated pt on how to use SPC. pt ambulated in room ~ 30 ft using SPC CGA . Stair Climbing Assessment Evaluation Level of Assist On Stairs Standby Assistance,Contact Guard Assistance,1 Person Assistance Devices Stair Climbing Assistive Devices Left Railing,Right Railing Technique/Endurance Stair Climbing Direction Ascend and Descend Stair Climbing Technique Step Over Step Number of Steps Climbed 3 Stair Climbing Set # Repetitions (reps) 2 Comments Stair Climbing Comments completed stair climbing using bilateral rails SBA and then using just one rail CGA M5 PT-IP Objective Assessments Start: 02/10/19 16:56 Freq: NEEDED Status: Active Protocol: Document 02/10/19 15:39 MT (Rec: 02/10/19 17:28 MT [email or web address]) Orientation Orientation/Cognition Level of Alertness Confusional State Orientation Name,Place,Situation Language Function Ability No Deficits Noted Safety Awareness Decreased Safety Awareness Memory Description Short Term Impaired Comments Pt appeared oriented and was able to make needs known. Towards the end of the session when pt was standing, she began showing signs of confusion and was having difficulty with following directions. She reported that she felt like she could continue walking, but was showing increased signs of weakness and fatigue, so her safety awareness was impaired. Gross Range of Motion Lower Extremity ROM Assessment Within Functional Limits Strength Lower Extremity Strength Assessment Within Functional Limits Comments Strength Comments Pt presented with B LE strength WFL. Sensation Assessment Comments Sensation Comments Pt reported during ambulation that her legs felt wonky, but reported that she had full feeling and sensation in her legs Muscle Tone Muscle Tone WNL Yes M6 PT-IP Treatment Start: 02/10/19 16:56 Freq: NEEDED Status: Active Protocol: Document 02/11/19 14:27 AB (Rec: 02/11/19 16:31 AB [id number]) Physical Therapy Treatment Education Education Provided Precautions,Safety M7 PT-IP Assessment and Plan Start: 02/10/19 16:56 Freq: NEEDED Status: Active Protocol: Document 02/11/19 14:27 AB (Rec: 02/11/19 16:31 AB [id number]) PT Summary Assessment and Plan Potential Rehabilitation Potential Good Summary Impairments Pain,ROM,Strength,Balance,Bed Mobility,Transfers,Gait, Activity Tolerance Progress Towards Goals Progressing Toward Goals Assessment Summary pt progressing well with mobility and plans to go home. pt has a friend that will stay with her and assist her but will not be able to provide physical assistance. pt currently requires SBA to CGA and is likely to progress more during hospital stay and will be able to go home with assist. Goals Bed Mobility Goal Standby Assistance Transfer Goal Standby Assistance,Front Wheeled Walker Gait Goal Standby Assistance,Front Wheel Walker Gait Distance 150 ft Other Goals 5 stairs with bilateral handrail SBA Days to Meet Goals 5 Frequency of Treatment Frequency Of Treatment Twice a Day Treatment Plan Physical Therapy Treatment Plan Bed Mobility Training,Transfer Training,Gait Training, Therapeutic Exercise,Balance Retraining,Post Op Education, Discharge Planning,Hot or Cold Pack,Neuromuscular Re-ed Other Recommendations and Next Treatment ambulation using 4WW and SPC Focus Recommendations To Nursing Amount of Assist Needed 1 Person Assist Discharge Recommendations PT Discharge Recommendations Home with Assistance
[2019-02-11 15:53] VITALS: BP 124/67; PULSE 68; RESP 18; TEMP 37; O2SAT 96
[2019-02-11] MEDS: SENNOSIDES 8.6 MG TABLET 17.2 MG PO (20:26)
[2019-02-11] MEDS: GABAPENTIN 300 MG CAPSULE PO (20:26)
[2019-02-11 20:42] VITALS: BP 161/74; PULSE 77; RESP 20; TEMP 36.9; O2SAT 97
[2019-02-11 23:35] VITALS: BP 118/73; PULSE 74; RESP 18; TEMP 36.8; O2SAT 92
[2019-02-12] MEDS: HYDROCODONE/ACET 5/325 TABLET 1 TAB PO (00:40)
[2019-02-12 05:05] VITALS: BP 129/68; PULSE 65; RESP 16; TEMP 36.9; O2SAT 93
[2019-02-12 08:00] VITALS: BP 116/71; PULSE 81; RESP 14; TEMP 37.1; O2SAT 94
[2019-02-12] MEDS: HYDROCODONE/ACET 5/325 TABLET 2 TAB PO (08:52)
[2019-02-12] MEDS: BISOPROLOL 5 MG TABLET 2.5 MG PO (08:55)
[2019-02-12] MEDS: SODIUM CHLORIDE 0.9% FLUSH 10 ML IV (08:57)
[2019-02-12] MEDS: hydroCHLOROthiazide 25 MG TABLET 6.25 MG PO (08:57)
[2019-02-12] MEDS: CELECOXIB 200 MG CAPSULE PO (08:57)
--- NOTE | 2019-02-12 09:11 | P.DS_ITS ---
History of Present Illness History of Present Illness Date Patient Seen: 02/12/19 Time Patient Seen: 09:11 Chief complaint: [id number] Narrative: [age] year old female with intractable pain from stenosis. They had failed conservative management and requested operative intervention. Risks and benefits of surgery were discussed and appropriate consents were obtained. Discharge Providers Provider Date of admission: 02/10/19 05:59 Discharge Date: 02/12/19 Primary care physician: Mignon Davenport PA-C Consults: 02/10/19 12:22 Consult to Occupational Therapy Evaluate & Treat Comment: Physician Instructions: Evaluate and treat Consult to Physical Therapy Evaluate & Treat Comment: Physician Instructions: Evaluate and Treat Discharge provider: Elif Abdi PA-C Summary Hospital Course Discharge Diagnosis: s/p L4-5 XLIF Hypertension COPD Hospital Course: Leigh was admitted for L4-[address] Rivera. On postop day 2. Patient was ready to discharge home. She was mobilizing safely with physical therapy. Her pain was controlled with [place], and Celebrex. She is eating and voiding without difficulty or assistance. Exam Vital Signs (past 8 hours): - 02/12/19 05:05 02/12/19 08:00 Temperature 98.4 F 98.8 F Pulse Rate 65 81 Respiratory Rate 16 14 Blood Pressure 129/68 116/71 Pulse Oximetry 93 94 Oxygen Delivery Method Room Air Oxygen Flow Rate 0 Narrative Exam Narrative: Patient is sitting in bedside chair in no acute distress. She is alert and oriented x3. Calves are soft, compressible, nontender bilaterally. Pulses are symmetrical. She is able to actively dorsiflex and plantar flex. She will have one of her friends stay with her at home. No complaints this morn ing. Objective Labs Result Diagrams: 02/11/19 06:45 Discharge Plan Discharge Plan Patient Disposition: Home Discharge comment: f/u 1.5 wks Discharge Med Rec/Prescriptions Prescriptions: New celecoxib [Celebrex] 200 mg Capsule 200 mg PO BID PRN (Reason: pain) Qty: 60 RF: 0 docusate sodium [DOK] 100 mg Capsule 100 mg PO BID PRN (Reason: constipation) Qty: 30 RF: 0 hydrocodone-acetaminophen 5-325 mg Tablet 1 tab PO Q4HR PRN (Reason: Pain, Moderate (4-6)) Qty: 25 RF: 0 Continued bisoprolol-hydrochlorothiazide [Ziac] 2.5-6.25 mg tablet 1 tab PO Q DAY Qty: 90 RF: 3 multivitamin tablet See Rx Instructions PO 2XW RF: 0 Fish Oil See Rx Instructions .ROUTE .COMPLEX RF: 0 Prevnar 13 (PF) 0.5 mL syringe 0.5 ml IM X1 Qty: 1 RF: 0 Shingrix (PF) 50 mcg/0.5 mL suspension for reconstitution 50 mcg IM ONCE Qty: 1 RF: 1 Discontinued ibuprofen 200 mg Capsule 400 - 600 mg PO Q6H PRN (Reason: Pain) Qty: 0 RF: 0 Follow up/Referrals: Mignon Davenport PA-C [Primary Care Provider] - Ermias Rivera MD [Physician] - Provider Discharge Instructions Diet: Diet as Tolerated Activity: 10 lbs max lift, limited bend/twist Skin/Wound/Dressing Care Report to your healthcare provider any signs of infection, such as:: chills, fever, night sweats, increased pain, unusual drainage and unusual redness Dressing: may change and shower POD#5 Visit Report/Discharge Packet Stand Alone Forms: Surgery Discharge Discharge Data Primary Care Provider: Mignon Davenport
[2019-02-12 09:31] VITALS: PULSE 72; O2SAT 95
--- NOTE | 2019-02-12 09:36 | PT.IPTN ---
Current Diagnoses Spondylolisthesis, lumbar region (02/10/19) Spinal stenosis, lumbar region with neurogenic claudication (02/10/19) Strain of muscle, fascia and tendon of lower back, initial encounter (02/10/19) Surgery Performed Operation Date: 02/10/19 07:45 Actual Procedures p L45 anterior & posterior instrumentated fusion w/ bone graft, L45 laminectomy - Ermias Rivera MD Physical Therapy Treatment Note M2 PT-IP Current Condition Start: 02/10/19 16:56 Freq: NEEDED Status: Active Protocol: Document 02/10/19 15:39 MT (Rec: 02/10/19 17:28 MT [email or web address]) Physical Therapy Current Condition Current Condition Evaluation Date 02/10/19 Treatment Diagnosis reduced ability with gait and impaired mobility s/p L4-5 spinal fusion Onset Date 02/10/19 Precautions Lumbar Precautions Log Roll,No Twisting,Limit Bending,Lifting Restriction of 10 lbs,Gait Belt above Incisional Area M3 PT-IP Subjective Start: 02/10/19 16:56 Freq: NEEDED Status: Active Protocol: Document 02/12/19 09:36 AB (Rec: 02/12/19 12:04 AB [id number]) Subjective Physical Therapy Visit Type Type Treatment Note Visit Start Time 09:36 Visit Stop Time 09:53 Total Visit Minutes 17 Number of [employer]KER Visits 0 Physical Therapy Visit Comments Patient Comments pt agreeable to do PT Therapy Pain Assessment Pain Present Pain Present Denied Pain M4 PT-IP Mobility and Gait Start: 02/10/19 16:56 Freq: NEEDED Status: Active Protocol: Document 02/12/19 09:36 AB (Rec: 02/12/19 12:04 AB [id number]) PT-Bed Mobility Assessment Supine to Sit Supine to Sit Standby Assistance Sit to Supine Sit to Supine Standby Assistance Scooting Scooting to Edge of Bed Standby Assistance Scooting Up and Down in Bed Standby Assistance PT-Transfer Assessment Sit to and From Stand Sit to and from Stand Standby Assistance Equipment Transfer Assistive Device Gait Belt,4 Wheeled Walker Orthotic/Prosthetic Devices or Brace: No Transfers Transfer Destination Chair Transfer Technique ambulated using FWW Transfer Ability Level of Assist Standby Assistance,Use of Upper Extremities Gait Assessment Gait Gait Assistance Required: Standby Assistance Distance (Feet) 225 Able to Maintain Weight Bearing Status Yes During Gait Assistive Devices Assistive Device Gait Belt,4 Wheeled Walker Orthotic/Prosthetic Devices or Brace: No Factors Limiting Gait Function Factors Limiting Gait Function Decreased Activity Tolerance, Decreased Strength,Limited Range of Motion,Poor Balance Comments Gait Comments educated pt on use of 4WW/ locking/unlocking brake, safety and techniques of use. pt was able to safely use 4WW M5 PT-IP Objective Assessments Start: 02/10/19 16:56 Freq: NEEDED Status: Active Protocol: Document 02/10/19 15:39 MT (Rec: 02/10/19 17:28 MT [email or web address]) Orientation Orientation/Cognition Level of Alertness Confusional State Orientation Name,Place,Situation Language Function Ability No Deficits Noted Safety Awareness Decreased Safety Awareness Memory Description Short Term Impaired Comments Pt appeared oriented and was able to make needs known. Towards the end of the session when pt was standing, she began showing signs of confusion and was having difficulty with following directions. She reported that she felt like she could continue walking, but was showing increased signs of weakness and fatigue, so her safety awareness was impaired. Gross Range of Motion Lower Extremity ROM Assessment Within Functional Limits Strength Lower Extremity Strength Assessment Within Functional Limits Comments Strength Comments Pt presented with B LE strength WFL. Sensation Assessment Comments Sensation Comments Pt reported during ambulation that her legs felt wonky, but reported that she had full feeling and sensation in her legs Muscle Tone Muscle Tone WNL Yes M6 PT-IP Treatment Start: 02/10/19 16:56 Freq: NEEDED Status: Active Protocol: Document 02/12/19 09:36 AB (Rec: 02/12/19 12:04 AB [id number]) Physical Therapy Treatment Education Education Provided Precautions,Safety M7 PT-IP Assessment and Plan Start: 02/10/19 16:56 Freq: NEEDED Status: Active Protocol: Document 02/12/19 09:36 AB (Rec: 02/12/19 12:04 AB [id number]) PT Summary Assessment and Plan Potential Rehabilitation Potential Good Summary Impairments ROM,Strength,Balance,Bed Mobility,Transfers,Gait, Activity Tolerance Progress Towards Goals Progressing Toward Goals Assessment Summary pt is doing well with mobility and plans to go home today with her friend to assist her. Goals Bed Mobility Goal Standby Assistance Transfer Goal Standby Assistance,Front Wheeled Walker Gait Goal Standby Assistance,Front Wheel Walker Gait Distance 150 ft Other Goals 5 stairs with bilateral handrail SBA Days to Meet Goals 5 Frequency of Treatment Frequency Of Treatment Twice a Day Treatment Plan Physical Therapy Treatment Plan Bed Mobility Training,Transfer Training,Gait Training, Therapeutic Exercise,Balance Retraining,Post Op Education, Discharge Planning,Hot or Cold Pack,Neuromuscular Re-ed Other Recommendations and Next Treatment ambulation using 4WW and SPC Focus Recommendations To Nursing Amount of Assist Needed 1 Person Assist Discharge Recommendations PT Discharge Recommendations Home with Assistance
== END 2019-02-12 12:00 | disposition home or self-care (01) | DRG 455 ==
PROVIDERS: Admitting Provider Orthopaedic Surgery; PCP Physician Assistant; Visit Provider Orthopaedic Surgery
PROC: 0SG00A0 Fusion of Lumbar Vertebral Joint with Interbody Fusion Device, Anterior Approach, Anterior Column, Open Approach (ICD-10-PCS; principal; 2019-02-10 07:45)
DX: M48.062 Spinal stenosis, lumbar region with neurogenic claudication (principal); M51.36 Other intervertebral disc degeneration, lumbar region; M41.86 Other forms of scoliosis, lumbar region; S39.012D Strain of muscle, fascia and tendon of lower back, subsequent encounter; X58.XXXA Exposure to other specified factors, initial encounter; I10 Essential (primary) hypertension; Z87.891 Personal history of nicotine dependence
CPT/HCPCS: 36415; 85014; 85018; 94760; 94762; 97116; 97162; 97165; 97530; 97535; C1776; J0595; J0690; J1100; J1170; J2274; J2405; J2704; J3010

== ENCOUNTER → 2020-01-19 08:44 | Outpatient (CLI) | payer MEDICARE, SELFPAY ==
[2019-02-10 13:41] VITALS: BMI 28.5
--- NOTE | 2020-01-19 08:48 | DI.RAD.S_ITS ---
PROCEDURE: XR CHEST 2V INDICATIONS: copd TECHNIQUE: 2 views of the chest were acquired. COMPARISON: [facility], , CHEST 2 VIEW, 04/15/2013, 18:07. FINDINGS: Surgical changes and devices: None. Lungs and pleura: Lungs are clear. No pleural effusions or pneumothorax. Mediastinum: Mediastinal contours are normal. Heart size is normal. Bones and chest wall: No suspicious bony abnormalities. Soft tissues appear unremarkable. IMPRESSION: No acute cardiopulmonary pathology. Dictated by: Alberto Wheat M.D. on 01/19/2020 at 10:06 Approved by: Alberto Wheat M.D. on 01/19/2020 at 10:39
[2020-01-19 11:16] LABS: Alanine Aminotransferase 23 IU/L (<35); Albumin 4.2 g/dL (3.5-5.0); Albumin Globulin Ratio 1.5 (1.0-2.8); Alkaline Phosphatase 71 U/L (38-126); Aspartate Aminotransferase 29 IU/L (14-36); BUN Creatinine Ratio 17.9 (6-22); Bilirubin Total 0.4 mg/dL (0.2-1.3); Blood Urea Nitrogen 17 mg/dL (7-17); Calcium 9.6 mg/dL (8.4-10.2); Carbon Dioxide 30 mmol/L (22-32); Chloride 107 mmol/L (98-107); Cholesterol 253 mg/dL (140-199); Estimated Glomerular Filt Rate 56.7 mL/min (>60); Globulin 2.8 g/dL (1.7-4.1); Glucose 100 mg/dL (80-110); HDL Cholesterol 89 mg/dL (40-60); HEMOLYSIS < 15 (0-50); LDL Cholesterol Calculated 145 mg/dL (<100); Potassium 4.6 mmol/L (3.4-5.1); Sodium 142 mmol/L (137-145); Triglycerides 93 mg/dL (35-150)
== END ==
PROVIDERS: PCP Registered Nurse; Referring Provider Registered Nurse; Visit Provider Registered Nurse
DX: J44.9 Chronic obstructive pulmonary disease, unspecified (principal); I10 Essential (primary) hypertension; E78.5 Hyperlipidemia, unspecified
CPT/HCPCS: 36415; 71046; 80053; 80061

== ENCOUNTER → 2020-02-22 09:14 | Outpatient (CLI) | payer MEDICARE, SELFPAY ==
[2019-02-10 13:41] VITALS: BMI 28.5
[2020-02-22 10:46] LABS: BUN Creatinine Ratio 17.2 (6-22); Blood Urea Nitrogen 15 mg/dL (7-17); Calcium 9.8 mg/dL (8.4-10.2); Carbon Dioxide 32 mmol/L (22-32); Chloride 102 mmol/L (98-107); Estimated Glomerular Filt Rate > 60.0 mL/min (>60); Glucose 108 mg/dL (80-110); HEMOLYSIS < 15 (0-50); Potassium 4.4 mmol/L (3.4-5.1); Sodium 138 mmol/L (137-145)
== END ==
PROVIDERS: PCP Registered Nurse; Referring Provider Registered Nurse; Visit Provider Registered Nurse
DX: I10 Essential (primary) hypertension (principal); R89.9 Unspecified abnormal finding in specimens from other organs, systems and tissues
CPT/HCPCS: 36415; 80048

== ENCOUNTER → 2020-05-10 16:50 | Outpatient (CLI) | payer MEDICARE, SELFPAY ==
[2019-02-10 13:41] VITALS: BMI 28.5
[2020-05-10] MEDS: COVID-19 VACC #1, MRNA(MOD) 100 MCG/0.5 ML VIAL IM (16:59)
== END ==
PROVIDERS: PCP Registered Nurse; Visit Provider Internal Medicine
DX: Z23 Encounter for immunization (principal)
CPT/HCPCS: 0011A; 91301

== ENCOUNTER → 2020-06-07 10:44 | Outpatient (CLI) | payer MEDICARE, SELFPAY ==
[2019-02-10 13:41] VITALS: BMI 28.5
[2020-06-07] MEDS: COVID-19 VACC #2, MRNA(MOD) 100 MCG/0.5 ML VIAL IM (10:52)
== END ==
PROVIDERS: PCP Registered Nurse; Visit Provider Internal Medicine
DX: Z23 Encounter for immunization (principal)
CPT/HCPCS: 0012A; 91301

== ENCOUNTER 2020-10-23 16:05 | Emergency (ER) | payer MEDICARE, SELFPAY ==
[2019-02-10 13:41] VITALS: BMI 28.5
[2020-10-23] VITALS (18 sets, daily range): BP systolic 144–216; BP diastolic 78–102; PULSE 60–74; RESP 10–33; TEMP 36.8; O2SAT 94–100; BMI 29.9
--- NOTE | 2020-10-23 17:11 | DI.RAD.S_ITS ---
PROCEDURE: XR CHEST 1V INDICATIONS: chest pain TECHNIQUE: One view of the chest was acquired. COMPARISON: [facility], CR, XR CHEST 2V, 01/19/2020, 8:45. FINDINGS: Surgical changes and devices: None. Lungs and pleura: Lungs are clear. No pleural effusions or pneumothorax. Mediastinum: Mediastinal contours appear normal. Heart size is normal. Bones and chest wall: No suspicious bony lesions. Overlying soft tissues appear unremarkable. Multilevel degenerative changes are seen in the included spine. Degenerative changes are also noted in the shoulders. IMPRESSION: No acute cardiopulmonary abnormality. Dictated by: Deric Negro M.D. on 10/23/2020 at 17:08 Approved by: Deric Negro M.D. on 10/23/2020 at 17:09
[2020-10-23 17:34] LABS: Add Manual Diff / Slide Review NO; Basophils Absolute Auto 0 /uL (0-100); Basophils Percent Auto 0.7 % (0-2); Eosinophils Absolute Auto 100 /uL (0-450); Eosinophils Percent Auto 1.5 % (2-4); Hematocrit 42.5 % (36-46); Hemoglobin 14.3 g/dL (12.0-16.0); Lymphocytes Absolute Auto 1500 /uL (1100-4500); Lymphocytes Percent Auto 23.3 % (25-40); Mean Corpuscular HGB Conc 33.8 % (30-36); Mean Corpuscular Volume 97.8 fL (80-100); Monocytes Absolute Auto 400 /uL (0-900); Monocytes Percent Auto 5.9 % (3-14); Neutrophils Absolute Auto 4500 /uL (1500-7000); Neutrophils Percent Auto 68.6 % (50-75); Platelet Count 188 X10^3/uL (150-400); Red Blood Cell Count 4.34 X10^6/uL (4.0-5.2); White Blood Cell Count 6.6 X10^3/uL (4.5-11.0)
[2020-10-23 17:42] LABS: INR 0.9 (0.9-1.3); Prothrombin Time 10.4 SECONDS (10.1-12.7)
[2020-10-23 17:45] LABS: PTT Partial Thromboplastin Tim 35 SECONDS (26.4-36.2)
[2020-10-23 17:47] LABS: Alanine Aminotransferase 24 IU/L (<35); Albumin 4.3 g/dL (3.5-5.0); Albumin Globulin Ratio 1.3 (1.0-2.8); Alkaline Phosphatase 73 U/L (38-126); Aspartate Aminotransferase 29 IU/L (14-36); BUN Creatinine Ratio 19.6 (6-22); Bilirubin Total 0.7 mg/dL (0.2-1.3); Blood Urea Nitrogen 18 mg/dL (7-17); Carbon Dioxide 25 mmol/L (22-32); Chloride 108 mmol/L (98-107); Creatine Kinase 44 U/L (30-135); Estimated Glomerular Filt Rate 58.7 mL/min (>60); Globulin 3.2 g/dL (1.7-4.1); Glucose 107 mg/dL (80-110); HEMOLYSIS < 15 (0-50); Lipase 180 U/L (23-300); Potassium 3.8 mmol/L (3.4-5.1); Sodium 141 mmol/L (137-145); Total Protein 7.5 g/dL (6.3-8.2)
[2020-10-23 17:59] LABS: Troponin I < 0.012 ng/mL (0.01-0.034)
--- NOTE | 2020-10-23 18:09 | DI.CT.S_ITS ---
PROCEDURE: CT HEAD/BRAIN WO CON INDICATIONS: dizzy, high bp TECHNIQUE: Noncontrast 4.5 mm thick angled axial sections acquired from the foramen magnum to the vertex, with coronal and sagittal reformats. For radiation dose reduction, the following was used: automated exposure control, adjustment of mA and/or kV according to patient size. COMPARISON: None. FINDINGS: Image quality: Excellent. CSF spaces: Basal cisterns are patent. No extra-axial fluid collections. The ventricles are symmetric in size and shape. Brain: No acute intracranial hemorrhage or mass effect. There is mild cerebral volume loss for age, with resultant ventricular and sulcal prominence. There are mild periventricular and deep white matter chronic small vessel ischemic changes. There is intracranial internal carotid artery atherosclerosis. Skull and face: Calvarium and visualized facial bones appear intact, without suspicious lesions. Sinuses: Visualized sinuses and mastoids are clear. IMPRESSION: 1. No acute intracranial abnormality. 2. Mild age related cerebral volume loss and chronic microvascular ischemic changes. Dictated by: Deric Negro M.D. on 10/23/2020 at 17:28 Approved by: Deric Negro M.D. on 10/23/2020 at 17:31
--- NOTE | 2020-10-23 21:15 | ED_ITS ---
HPI - Neuro Symptoms/Deficit General Chief Complaint: Neuro Symptoms/Deficit Stated Complaint: dizzy, high BP Time Seen by Provider: 10/23/20 18:09 Source: patient Mode of arrival: Ambulatory Limitations: no limitations History of Present Illness HPI Narrative: 80-year-old female comes emergency department for vertigo like symptoms. Patient states this morning she went to look up at a cabin and felt like stuff was spinning in front of her. She had this happen 2 additional times once when she was in the past she had laid back defer here the water and when she sat up she had symptoms once again with the tile seem to move. And she had 1 additional episode while lying in bed sitting back up. Patient has not had similar symptoms in the past. She is not having any symptoms since 07/03 this afternoon. Her initial onset was around 8-9 o'clock this morning. Patient denies any headache, no vision changes, no chest pain or shortness of breath no nausea or vomiting. No other GI or urinary symptoms. No numbness, tingling or weakness. 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 Patient has a history of hypertension. She takes bisoprolol/hydrochlorothiazide and did take her morning dose. She only takes it in the morning. She has had back surgery a year ago. Some she has had cataract surgery. She is allergic to aspirin. She quit smoking remotely. She drinks about 3 glasses of wine daily denies illicit. She has not had any blood pressure rechecks in the last couple months but has been taking her medication regularly. On Anticoagulants: No Related Data Home Medications Medication Instructions Recorded Confirmed Fish Oil See Rx Instructions .ROUTE .COMPLEX 09/14/18 01/23/20 multivitamin See Rx Instructions PO 2XW tab 09/14/18 01/23/20 Previous Rx's Medication Instructions Recorded pneumoc 13-guero conj-dip cr(PF) 0.5 0.5 ml IM X1 #1 ea 09/15/18 mL IM syringe (Prevnar 13 (PF)) varicella-zoster glycoE [id number] 50 mcg IM ONCE #1 each 09/15/18 adj(PF) 50 mcg/0.5 mL IM susp, kit (Shingrix (PF)) albuterol sulfate 90 mcg/actuation 2 puff INHALATION Q4-6H PRN #18 01/19/20 aerosol inhaler gram bisoprolol 2.5 1 tab PO Q DAY #90 tab 07/03/20 mg-hydrochlorothiazide 6.25 mg tablet (Ziac) Allergies Allergy/AdvReac Type Severity Reaction Status Date / Time aspirin [ASPIRIN] AdvReac Mild GI UPSET Verified 10/23/20 16:26 lisinopril [LISINOPRIL] AdvReac Mild COUGH Verified 10/23/20 16:26 olmesartan [OLMESARTAN] AdvReac Mild DIZZYNESS Verified 10/23/20 16:26 Review of Systems Review of Systems ROS Unobtainable: All systems reviewed & are unremarkable except as noted in HPI and below Hematologic/Lymphatic On Anticoagulants: No Patient History Medical History Anxiety about health (~01/2019) Arthritis Back pain Basal cell carcinoma (Unknown) Bilateral sciatica (~04/2017) COPD (chronic obstructive pulmonary disease) (Unknown) Hyperlipidemia (Unknown) Hypertension (Unknown) Numbness and tingling Osteopenia (10/2012) Pneumonia Rosacea (Unknown) Sciatica Surgical History History of colonoscopy Hx of bilateral cataract extraction Hx of dilation and curettage Hx of tonsillectomy Social History household members: none Smoking Status: Former smoker Tobacco: How many years used: 5 (5 years or so.) second hand exposure: Yes (when I was a child my parents smoked all the time.) alcohol intake: current substance use type: does not use Smoking Status: Former smoker alcohol intake frequency: 0-2 drinks per day Substance Use Type: does not use Exam Narrative Exam Narrative: GEN: well nourished, well appearing female, alert and oriented x 3, patient appears to be in mild distress. HEENT: Atraumatic, pupils are equal round reactive to light, extraocular movements are intact, mild rotatory nystagmus on lateral movement, nares are clear, TMs are clear with no fluid, there is no conjunctival pallor. Throat is clear without any exudates, erythema, tonsillar enlargement or uvular deviation, no facial droop. HEART: Regular rate and rhythm without murmur, clicks, rubs. LUNGS:Lungs clear to auscultation, no wheezes, rales, crackles, chest moves symmetrically ABD:bowel sounds normal, soft, non-tender, no guarding, rebound, rigidity, no masses noted, no hepatosplenomegaly :No CVA tenderness MSCL: Non-tender, no muscle atrophy, muscles strength 5/5 upper and lower extremities, full range of motion, normal gait NEURO:CN 2-12 intact, sensation normal, finger nose finger test normal, heel jara test normal, romberg normal Initial Vital Signs Initial Vital Signs: Vital Signs Temperature 98.2 F 10/23/20 16:21 Pulse Rate 74 10/23/20 16:21 Respiratory Rate 18 10/23/20 16:21 Blood Pressure 216/102 H 10/23/20 16:21 Pulse Oximetry 96 10/23/20 16:21 Scores NIH Stroke Scale Level of Conciousness: Alert, keenly responsive Ask month/age: Answers both questions correctly. Open/close eyes, close hand: Performs both tasks correctly Best gaze horizontal: Normal Visual diego: No visual loss Facial palsy: Normal symetrical movement Left arm drift: No drift for full 10 sec Right arm drift: No drift for full 10 sec Left leg drift: No drift for full 5 sec Right leg drift: No drift for full 5 sec Limb ataxia: Absent Sensory on face/arms/legs: Normal, no sensory loss Best language: No aphasia, normal Dysarthria: Normal Extinction or inattention: No abnormality Total NIH Stroke scale score: 0 Course Orders Ordered: ED Orders 10/23/20 17:11 XR chest 1V Stat EKG-12 Lead Stat 10/23/20 17:24 Complete Blood Count AUTO DIFF Stat Comprehensive Metabolic Panel Stat Lipase Stat Partial Thromboplastin Time Stat Prothrombin Time INR Stat Troponin & CK Cardiac Panel Stat 10/23/20 18:09 CT head/brain wo con Stat Vital Signs Vital signs: Vital Signs - 8 hr 10/23/20 16:21 10/23/20 17:20 10/23/20 17:42 Temperature 98.2 F Pulse Rate 74 67 Respiratory Rate 18 16 Blood Pressure 216/102 H 144/86 H 205/78 H Pulse Oximetry 96 100 10/23/20 17:58 10/23/20 18:00 10/23/20 18:01 Temperature Pulse Rate 61 62 64 Respiratory Rate 16 18 13 Blood Pressure 195/83 H Pulse Oximetry 96 96 95 10/23/20 18:30 10/23/20 18:31 10/23/20 19:00 Temperature Pulse Rate 62 63 60 Respiratory Rate 16 17 24 Blood Pressure 204/88 H Pulse Oximetry 97 96 95 10/23/20 19:01 10/23/20 19:30 10/23/20 19:31 Temperature Pulse Rate 61 61 63 Respiratory Rate 21 24 26 H Blood Pressure 213/95 H 194/88 H Pulse Oximetry 95 94 94 10/23/20 20:00 10/23/20 20:30 10/23/20 20:53 Temperature Pulse Rate 64 65 64 Respiratory Rate 18 14 10 L Blood Pressure 187/88 H 175/81 H 203/89 H Pulse Oximetry 95 96 98 10/23/20 20:59 10/23/20 21:00 Temperature Pulse Rate 65 67 Respiratory Rate 19 23 Blood Pressure 186/86 H Pulse Oximetry 96 97 MDM - Neuro Symptoms/Deficit Lab Data Result diagrams: 10/23/20 17:24 10/23/20 17:24 Labs: Lab Results 10/23/20 10/23/20 10/23/20 Range/Units 17:24 17:24 17:24 WBC 6.6 (4.5-11.0) X10^3/uL RBC 4.34 (4.0-5.2) X10^6/uL Hgb 14.3 (12.0-16.0) g/dL Hct 42.5 (36-46) % MCV 97.8 (80-100) fL MCH 33.0 (26-34) PG MCHC 33.8 (30-36) % RDW 14.0 (11.6-14.8) % Plt Count 188 (150-400) X10^3/uL Neut % (Auto) 68.6 (50-75) % Lymph % (Auto) 23.3 L (25-40) % Kaufman % (Auto) 5.9 (3-14) % Eos % (Auto) 1.5 L (2-4) % Baso % (Auto) 0.7 (0-2) % Neut # (Auto) 4500 (0415-7853) /uL Lymph # (Auto) 1500 (0243-2814) /uL Kaufman # (Auto) 400 (0-900) /uL Eos # (Auto) 100 (0-450) /uL Baso # (Auto) 0 (0-100) /uL PT 10.4 (10.1-12.7) SECONDS INR 0.9 (0.9-1.3) APTT 35 (26.4-36.2) SECONDS Sodium 141 (137-145) mmol/L Potassium 3.8 (3.4-5.1) mmol/L Chloride 108 H (98-107) mmol/L Carbon Dioxide 25 (22-32) mmol/L BUN 18 H (7-17) mg/dL Creatinine 0.92 (0.52-1.04) mg/dL Estimated GFR 58.7 L (>60) mL/min BUN/Creatinine Ratio 19.6 (6-22) Glucose 107 (80-110) mg/dL Calcium 10.0 (8.4-10.2) mg/dL Total Bilirubin 0.7 (0.2-1.3) mg/dL AST 29 (14-36) IU/L ALT 24 (<35) IU/L Alkaline Phosphatase 73 (38-126) U/L Total Creatine Kinase 44 (30-135) U/L CK-MB (CK-2) TNP CK-MB (CK-2) Rel Index TNP Troponin I < 0.012 (0.01-0.034) ng/mL Total Protein 7.5 (6.3-8.2) g/dL Albumin 4.3 (3.5-5.0) g/dL Globulin 3.2 (1.7-4.1) g/dL Albumin/Globulin Ratio 1.3 (1.0-2.8) Lipase 180 (23-300) U/L Imaging Data CT scan - head: Radiologist's Impression: Chronic changes no acute changes. Chest x-ray: Radiologist's Impression: No acute change ECG Data Interpretation: Sinus rhythm with sinus arrhythmia. Patient has slightly inverted T-wave in 3. No other acute changes appreciated. Patient has prior EKG which appears similar. MDM Narrative Medical decision making narrative: This is an 80-year-old female with vertigo like symptoms that are very short and then resolved quickly. Patient has normal gait. No other neurologic changes in NIH of 0 x 2 by nursing and myself. Patient's blood pressure was quite elevated initially. It has come down without much intervention. Patient does normally take blood pressure medication. Initial head CT, labs and EKG do not show any acute findings that would describe her symptoms. Discussed with patient she would like to return home rather than take anything for blood pressure here in the department. Discharge Plan Departure Patient Disposition: Home Clinical Impression: Vertigo Instructions: DI for Vertigo Activity Restrictions/Additional Instructions: Follow-up with your physician/care team for recheck. Included below was referral to ENT for further evaluation of your vertigo symptoms. Once you return home if your blood pressure on recheck is still greater than 185 you may take 1 additional dose of your bisoprolol/hydrochlorothiazide. Check your blood pressure regularly at home and keep a log. Contact her primary care if it continues to run high as they may need to adjust her home medicatio ns. It is unclear if your high blood pressure is related to your vertigo symptoms today or is a side effect. Please return for new or worsening symptoms, severe headaches, vision changes, numbness tingling or weakness, difficulty with speech, inability to ambulate safely, persistent vomiting or other new or concerning symptoms. Prescriptions: No Action albuterol sulfate 90 mcg/actuation HFA aerosol inhaler 2 puff INHALATION Q4-6H PRN (Reason: shortness of breath or wheezing) Qty: 18 RF: 2 bisoprolol-hydrochlorothiazide [Ziac] 2.5-6.25 mg tablet 1 tab PO Q DAY Qty: 90 RF: 1 multivitamin tablet See Rx Instructions PO 2XW RF: 0 Fish Oil See Rx Instructions .ROUTE .COMPLEX RF: 0 Prevnar 13 (PF) 0.5 mL syringe 0.5 ml IM X1 Qty: 1 RF: 0 Shingrix (PF) 50 mcg/0.5 mL suspension for reconstitution 50 mcg IM ONCE Qty: 1 RF: 1 Referrals: Ramsey Estrada MD [Physician] - Alessandro Andrews ARNP [Primary Care Provider] -
== END 2020-10-23 21:51 | disposition home or self-care (01) ==
PROVIDERS: Emergency Medicine; Emergency Provider Emergency Medicine; PCP Registered Nurse
DX: R42 Dizziness and giddiness (principal); I10 Essential (primary) hypertension; R07.9 Chest pain, unspecified
CPT/HCPCS: 36415; 70450; 71045; 80053; 82550; 83690; 84484; 85025; 85610; 85730; 93005; 93010; 99284

== ENCOUNTER → 2021-01-18 11:56 | Outpatient (CLI) | payer MEDICARE, SELFPAY ==
[2019-02-10 13:41] VITALS: BMI 28.5
--- NOTE | 2021-01-18 11:58 | DI.MRI.S_ITS ---
PROCEDURE: MR LUMBAR SPINE WO CON INDICATIONS: Low back pain with failure of physical therapy TECHNIQUE: Noncontrast sagittal T1 spin echo and T2 fast echo, sagittal STIR, axial T1 and T2 fast spin echo through the lumbar spine. In cases with scoliosis, additional coronal T2 fast spin echo may be performed. COMPARISON: [facility], MR, MR LUMBAR SPINE WO CON, 09/28/2018, 9:20. [facility], CR, XR LUMBAR SPINE 2 OR 3 VIEWS, 11/23/2020, 7:35. FINDINGS: Image quality: This examination is limited by involuntary motion artifact. There is artifact associated with the metallic hardware. Alignment and Curvature: There is minimal retrolisthesis seen at L2-L3. Minimal retrolisthesis is also seen at L5-S1. Mild levoconvex scoliotic curvature is noted. Bone Marrow: Marrow is of normal overall signal. No acute vertebral body compression fractures. Spinal Cord: Conus medullaris terminates at the L1 level. Visualized cord demonstrates normal signal and size. Paraspinous Soft Tissues: No paravertebral masses. A 2.5 cm apparent cyst can be seen along the anterior aspect of the right kidney. T12-L1: Normal appearance. L1-L2: The disc height is well-preserved. Loss of disc signal is seen at this level. Bridging endplate osteophytes are seen. Mild generalized disc bulge is seen. Mild facet joint hypertrophy is seen. There is mild right-sided and no left-sided neural foraminal narrowing seen. No central canal narrowing is seen. When comparison is made with the prior images, these findings are similar. L2-L3: At least moderate loss of disc height and disc signal can be seen on the right side. Partially bridging endplate osteophytes are seen on the right. There is moderate left-sided and moderate to severe right-sided neural foraminal narrowing seen. There is a degree of compression seen upon the exiting right L2 nerve root. Moderate to severe central canal narrowing is seen at this level. These degenerative changes are worse than in 2019. L3-L4: At least moderate loss of disc height and disc signal can be seen on the right side. Partially bridging endplate osteophytes are seen on the right. At least moderate disc bulge is seen, with a central disc protrusion. At least moderate facet hypertrophy can be seen at this level. There is moderate left-sided and moderate to severe right-sided neural foraminal narrowing seen. A degree of compression can be seen upon the exiting right L3 nerve root. Moderate to severe central canal narrowing is seen, as on series 6, image 22. The previously seen central disc extrusion is improved. However, the overall degree of central canal narrowing has progressed compared to the prior examination. L4-L5: Postoperative changes are seen at this level, with bilateral pedicle screws and vertical fixation rods. A disc spacer is seen at this level. There has been removal of portions of the posterior elements. Moderate disc bulge is seen, which is eccentric to the right. Prominent facet hypertrophy is seen. There is mild left-sided and moderate right-sided neural foraminal narrowing seen. Mild central canal narrowing is seen. The degenerative changes at this level are clearly improved compared to the preoperative MRI. L5-S1: At least moderate loss of disc height and disc signal can be seen. Reactive marrow endplate changes are seen, which are hyperintense on T1-weighted and T2-weighted imaging and most consistent with fatty metaplasia (Modic type II changes). At least moderate disc bulge is seen, which is eccentric to the left. Moderate facet joint hypertrophy is seen. Moderate bilateral neural foraminal narrowing seen. Mild central canal narrowing is seen. When comparison is made with the prior images, these findings are similar. IMPRESSION: Since the prior MRI, there is been a postoperative change at the L4-L5 level, with improvement in the degrees of degenerative narrowing at this level. At L3-L4, the previously seen disc extrusion is improved. However, the degree of central canal narrowing has worsened compared to the prior. There is also interval progression of degenerative change at L2-L3. Dictated by: Elijah Borja M.D. on 01/18/2021 at 13:06 Approved by: Elijah Borja M.D. on 01/18/2021 at 13:13
--- NOTE | 2021-01-18 11:58 | DI.RAD.S_ITS ---
PROCEDURE: XR DEXA AXIAL SKELETON INDICATIONS: Osteoporosis screening COMPARISON: [facility], CR, DEXA AXIAL SKELETON, 05/05/2017, 10:28. FINDINGS: This blank DEXA report has been sent in error by the PACS system. The correct and complete report will be forthcoming in 1-2 days. Thank you for your patience and understanding. Dictated by: Marty Tapia M.D. on 01/18/2021 at 14:11 Approved by: Marty Tapia M.D. on 01/18/2021 at 14:12
== END ==
PROVIDERS: PCP Student in an Organized Health Care Education/Training Program; Referring Provider Student in an Organized Health Care Education/Training Program; Visit Provider Student in an Organized Health Care Education/Training Program
DX: M47.26 Other spondylosis with radiculopathy, lumbar region; M85.852 Other specified disorders of bone density and structure, left thigh; Z78.0 Asymptomatic menopausal state; Z87.891 Personal history of nicotine dependence
CPT/HCPCS: 72148; 77080

== ENCOUNTER → 2022-05-05 13:13 | Outpatient (CLI) | payer MEDICARE, SELFPAY ==
[2019-02-10 13:41] VITALS: BMI 28.5
--- NOTE | 2022-05-05 13:15 | DI.MRI.S_ITS ---
PROCEDURE: MR CERVICAL SPINE WO CON INDICATIONS: fingertip numbness on right, neck pain TECHNIQUE: Noncontrast sagittal T1 spin echo and T2 fast spin echo, sagittal STIR, foraminal oblique sagittal T2 fast spin echo, and axial gradient echo or T2 fast spin echo through the cervical spine. COMPARISON: None. FINDINGS: Image quality: Excellent. Alignment and Curvature: Grade 1 anterior spondylolisthesis noted at C2-3 and C7-T1 Bone Marrow: Marrow demonstrates normal overall signal. Spinal Cord: Visualized spinal cord has normal size and signal. No cerebellar tonsillar herniation. Paraspinous Soft Tissues: No paravertebral masses. Prevertebral soft tissues are normal in thickness. C2-C3: Disc spaces preserved. Posterior disc osteophyte complex results in mild central stenosis. No foraminal stenosis C3-C4: Disc space narrowing with posterior disc osteophyte complex results in [id number] central stenosis. Mild right and no left foraminal stenosis C4-C5: Disc space is preserved. Posterior disc osteophyte complex results in [id number] central stenosis. Mild left and no right foraminal stenosis C5-C6: Disc space narrowing and posterior disc osteophyte complex results in moderate central stenosis with flattening the ventral surface of the cord. There is severe bilateral foraminal stenosis C6-C7: Disc space narrowing and posterior disc osteophyte complex with hypertrophic uncovertebral joints results in moderate severe central stenosis and severe bilateral foraminal stenosis C7-T1: Disc space narrowing with hypertrophic uncovertebral joints present. Mild central stenosis. Moderate bilateral foraminal stenosis. IMPRESSION: Multilevel degenerative disc disease and arthropathy results in varying degrees of central and foraminal stenosis including moderate to severe central stenosis and severe bilateral foraminal stenosis at C6-7 Approved by: Bernardo Johnson M.D. on 05/05/2022 at 17:21
== END ==
PROVIDERS: PCP Nurse Practitioner; Referring Provider Nurse Practitioner; Visit Provider Nurse Practitioner
DX: M47.812 Spondylosis without myelopathy or radiculopathy, cervical region (principal); M50.30 Other cervical disc degeneration, unspecified cervical region; M48.02 Spinal stenosis, cervical region; R20.0 Anesthesia of skin; R20.2 Paresthesia of skin
CPT/HCPCS: 72141

== ENCOUNTER → 2022-06-16 08:49 | Outpatient (CLI) | payer MEDICARE, SELFPAY ==
[2019-02-10 13:41] VITALS: BMI 28.5
[2022-06-16 10:05] LABS: Add Manual Diff / Slide Review NO; Basophils Absolute Auto 0 /uL (0-100); Basophils Percent Auto 0.4 % (0-2); Eosinophils Absolute Auto 100 /uL (0-450); Eosinophils Percent Auto 1.4 % (2-4); Hematocrit 44.1 % (36-46); Hemoglobin 14.9 g/dL (12.0-16.0); Lymphocytes Absolute Auto 1800 /uL (1100-4500); Lymphocytes Percent Auto 20.8 % (25-40); Mean Corpuscular HGB Conc 33.7 % (30-36); Mean Corpuscular Hemoglobin 32.1 PG (26-34); Mean Corpuscular Volume 95.3 fL (80-100); Monocytes Absolute Auto 500 /uL (0-900); Monocytes Percent Auto 5.1 % (3-14); Neutrophils Absolute Auto 6300 /uL (1500-7000); Neutrophils Percent Auto 72.3 % (50-75); Platelet Count 237 X10^3/uL (150-400); Red Blood Cell Count 4.63 X10^6/uL (4.0-5.2); Red Cell Distribution Width 16.2 % (11.6-14.8); White Blood Cell Count 8.8 X10^3/uL (4.5-11.0)
[2022-06-16 10:26] LABS: Alanine Aminotransferase 28 IU/L (<35); Albumin 4.4 g/dL (3.5-5.0); Albumin Globulin Ratio 1.4 (1.0-2.8); Alkaline Phosphatase 76 U/L (38-126); Aspartate Aminotransferase 28 IU/L (14-36); BUN Creatinine Ratio 27.3 (6-22); Bilirubin Total 0.5 mg/dL (0.2-1.3); Blood Urea Nitrogen 27 mg/dL (7-17); Calcium 10.3 mg/dL (8.4-10.2); Carbon Dioxide 28 mmol/L (22-32); Chloride 101 mmol/L (98-107); Cholesterol 243 mg/dL (140-199); Estimated Glomerular Filt Rate 57 mL/min (>60); Globulin 3.1 g/dL (1.7-4.1); Glucose 97 mg/dL (80-110); HEMOLYSIS < 15 (0-50); Potassium 3.6 mmol/L (3.4-5.1); Sodium 139 mmol/L (137-145); Total Protein 7.5 g/dL (6.3-8.2); Triglycerides 66 mg/dL (35-150)
[2022-06-16 10:29] LABS: Creatinine Urine Random 90.9 mg/dL
[2022-06-16 10:33] LABS: Microalbumi Creatinin Ratio Ur 34.1 ug/mg CR (<30); Microalbumin Urine Random 3.1 mg/dL (0-1.6)
[2022-06-16 10:41] LABS: HDL Cholesterol 115 mg/dL (40-60); LDL Cholesterol Calculated 115 mg/dL (<100)
[2022-06-16 10:48] LABS: Free T3, Triiodothyronine Free 3.58 pg/mL (2.77-5.27); Free T4, Direct Thyroxine 1.15 ng/dL (0.78-2.19)
[2022-06-16 11:02] LABS: Thyroid Stimulating Hormone 1.66 uIU/mL (0.47-4.68)
[2022-06-16 11:03] LABS: INR 0.9 (0.9-1.3); Prothrombin Time 10.2 SECONDS (10.1-12.7)
== END ==
PROVIDERS: PCP Nurse Practitioner; Referring Provider Nurse Practitioner; Visit Provider Nurse Practitioner
DX: Z01.818 Encounter for other preprocedural examination (principal); E78.5 Hyperlipidemia, unspecified; I10 Essential (primary) hypertension; Z79.899 Other long term (current) drug therapy; Z01.812 Encounter for preprocedural laboratory examination
CPT/HCPCS: 80053; 80061; 82043; 82570; 84439; 84443; 84481; 85025; 85610; 93005; 93010

== ENCOUNTER → 2023-03-01 13:28 | Outpatient (CLI) | payer MEDICARE, SELFPAY ==
[2019-02-10 13:41] VITALS: BMI 28.5
--- NOTE | 2023-03-01 13:31 | DI.RAD.S_ITS ---
PROCEDURE: XR CHEST 2V INDICATIONS: Cough x 1.5 months TECHNIQUE: 2 views of the chest were acquired. COMPARISON: [facility], CR, XR CHEST 1V, 10/23/2020, 17:28. FINDINGS: Surgical changes and devices: None. Lungs and pleura: Lungs are clear. No pleural effusions or pneumothorax. Mediastinum: Mediastinal contours are normal. Heart size is normal. Aortic arch is calcified, indicating atherosclerosis. Bones and chest wall: No suspicious bony abnormalities. Soft tissues appear unremarkable. Mild multilevel degenerative changes of the spine with dextroconvex curvature which may be partly positional. IMPRESSION: No acute cardiopulmonary process. Dictated by: Erick Miranda M.D. on 03/01/2023 at 14:45 Approved by: Erick Miranda M.D. on 03/01/2023 at 14:46
== END ==
PROVIDERS: PCP Nurse Practitioner; Referring Provider Physician Assistant; Visit Provider Physician Assistant
DX: R05.9 Cough, unspecified (principal)
CPT/HCPCS: 71046

== ENCOUNTER → 2024-02-24 11:41 | Outpatient (CLI) | payer MEDICARE, SELFPAY ==
[2019-02-10 13:41] VITALS: BMI 28.5
[2024-02-24 13:28] LABS: Influenza A - CEPHEID Flu A NEGATIVE (NEGATIVE); Influenza B - CEPHEID Flu B NEGATIVE (NEGATIVE); Respiratory Syncytial Virus Negative (Negative)
[2024-02-24 13:47] LABS: COVID-19 CEPHEID 4-PLEX PCR Negative (Negative)
== END ==
PROVIDERS: Visit Provider Physician Assistant
DX: R05.1 Acute cough (principal); J06.9 Acute upper respiratory infection, unspecified
CPT/HCPCS: 0241U

== ENCOUNTER → 2024-08-04 14:32 | Outpatient (CLI) | payer MEDICARE, SELFPAY ==
[2019-02-10 13:41] VITALS: BMI 28.5
--- NOTE | 2024-08-04 14:35 | DI.RAD.S_ITS ---
PROCEDURE: XR CHEST 2V INDICATIONS: Cough TECHNIQUE: 2 views of the chest were acquired. COMPARISON: [facility], CR, XR CHEST 2V, 03/01/2023, 13:39. FINDINGS: Surgical changes and devices: None. Lungs and pleura: Lungs are clear. No pleural effusions or pneumothorax. Mediastinum: Mediastinal contours are normal. Heart size is normal. Bones and chest wall: Ill-defined lucency overlying the right upper lobe/scapula. Soft tissues appear unremarkable. IMPRESSION: Ill-defined lucency overlying right upper lobe/scapula. This is suspected to be artifactual. However, recommend short interval chest x-ray follow-up to document resolution. Dictated by: María Elena Alatorre M.D. on 08/05/2024 at 11:55 Approved by: María Elena Alatorre M.D. on 08/05/2024 at 11:57
== END ==
PROVIDERS: Referring Provider Nurse Practitioner Family; Visit Provider Nurse Practitioner Family
DX: R05.9 Cough, unspecified (principal)
CPT/HCPCS: 71046

== ENCOUNTER 2024-11-06 11:10 | Inpatient (IN) | payer MEDICARE, SELFPAY ==
[2019-02-10 13:41] VITALS: BMI 28.5
[2024-11-06] VITALS (18 sets, daily range): BP systolic 142–172; BP diastolic 61–83; PULSE 67–116; RESP 14–20; TEMP 36.9; O2SAT 92–98; BMI 27.1
--- NOTE | 2024-11-06 12:48 | DI.CT.S_ITS ---
PROCEDURE: CT LUMBAR SPINE WO CON INDICATIONS: pain/difficulty walking TECHNIQUE: Noncontrast 3 mm thick sections acquired from the T12 level to the sacrum. Sagittal and coronal reformats were constructed. For radiation dose reduction, the following was used: automated exposure control. COMPARISON: [facility], MR, MR LUMBAR SPINE WO CON, 01/18/2021, 12:04. [facility], CR, XR LUMBAR SPINE 2 OR 3 VIEWS, 11/23/2020, 7:35. FINDINGS: Image quality: There is artifact associated with the metallic hardware. Artifact from the metallic hardware is reduced by metal reconstruction algorithm. Bones: No acute vertebral body compression fractures. No suspicious lytic or blastic bony lesions. No pars defects. Mild levoconvex scoliotic curvature is noted. This patient has transitional lumbar anatomy. For the purposes of this examination, the level with the last well-developed pair of ribs is considered to be T12. By this numbering scheme, tiny vestigial ribs can be seen at the L1 level. The S1 level is transitional and is partially lumbarized on each side. T12-L1: Bridging endplate osteophytes are seen. No significant neural foraminal or central canal narrowing can be seen. L1-L2: The disc height is relatively well preserved. Bridging endplate osteophytes are seen. Endplate irregularity and sclerosis can be seen. Mild generalized disc bulge is seen. There is mild right-sided and no left-sided neural foraminal narrowing. No significant central canal narrowing is seen. L2-L3: At least moderate loss of disc height is seen on the right-side. Endplate irregularity and sclerosis can be seen. Bridging endplate osteophytes can be seen on the right, as on series 6, image 20. At least moderate disc bulge is seen. Moderate facet joint hypertrophy is seen. There is at least moderate bilateral neural foraminal narrowing, right worse than left. Moderate central canal narrowing is seen. L3-L4: At least moderate loss of disc height is seen on the right-side. Prominent bridging endplate osteophytes can be seen on the right, as on series 6, image 20. Moderate generalized disc bulge is seen. Moderate facet joint hypertrophy is seen. There is moderate right-sided and at least moderate left-sided neural foraminal narrowing. Mild to moderate central canal narrowing is seen. L4-L5: Postoperative changes are seen at this level, with bilateral pedicle screws and vertical fixation rods. The screws appear well placed. There is a disc spacer at this level. No findings of hardware failure or hardware loosening are seen. Right hemilaminectomy change is seen. Moderate generalized disc bulge is seen. There is a superimposed central disc osteophyte protrusion. Moderate facet joint hypertrophy is seen. Moderate bilateral neural foraminal narrowing is seen. Mild central canal narrowing is seen. L5-S1: At least moderate loss of disc height is seen. Endplate irregularity and sclerosis can be seen. Vacuum disc phenomenon is seen at this level. At least moderate disc bulge is seen. There is a superimposed central disc osteophyte protrusion. Moderate facet joint hypertrophy is seen. At least moderate bilateral neural foraminal narrowing is seen. At least moderate central canal narrowing is seen. S1-S2: A transitional, rudimentary disc is seen at this level. Soft tissues: No retroperitoneal masses or hematomas. Visualized aorta is normal in caliber. Colonic diverticulosis is seen, without findings of active diverticulitis. A water density cysts can be seen involving the anterior right kidney. IMPRESSION: No manoj acute abnormality can be seen. Intact appearing L4-L5 postoperative hardware. Multiple levels of significant lumbar spine degenerative change can be seen. Dictated by: Elijah Borja M.D. on 11/06/2024 at 12:41 Approved by: Elijah Borja M.D. on 11/06/2024 at 12:47
--- NOTE | 2024-11-06 15:40 | ED.BACK ---
HPI - Back Pain/Injury <Sandra Camacho PA-C - Last Filed: 11/06/24 19:21> General Chief Complaint: Back Pain/Injury Stated Complaint: Back Pain Time Seen by Provider: 11/06/24 15:33 Source: patient and EMS History of Present Illness HPI Narrative: Ms. Abraham is a pleasant 84-year-old female with a past medical history of hypertension, hyperlipidemia who presents to the emergency department via EMS from home for low back pain. Patient states that she had surgery on her low back with hardware many years ago. She went to bed last night feeling normal however when she woke up this morning she was having significant pain of her low back that was making it difficult for her to walk and move around her house. The pain radiates down both legs. The pain is worse with movement. EMS was called because of the significance of her pain. This time she reports persistent severe pain of the low back and with movement she feels like her whole body hurts. She is occasionally getting cramp in the left thigh. She denies fevers, chills, saddle anesthesia, numbness tingling or weakness of the lower extremities, bowel or bladder retention or incontinence, dysuria, hematuria, flank pain, cough, chest pain, shortness of breath. Related Data Home Medications ?Medication ?Instructions ?Recorded ?Confirmed Fish Oil See Rx Instructions .Route .COMPLEX 09/14/18 08/16/24 chlorthalidone 25 mg tablet 25 mg PO DAILY 12/06/20 08/16/24 felodipine 5 mg tablet,extended 5 mg PO DAILY 12/06/20 08/16/24 release 24 hr milk thistle See Rx Instructions .Route .COMPLEX 04/23/22 08/16/24 Previous Rx's ?Medication ?Instructions ?Recorded fluticasone propionate 50 1 spray intranasal DAILY #16 grams 02/24/24 mcg/actuation nasal spray,suspension (Flonase Allergy Relief) benzonatate 200 mg capsule 200 mg PO BID PRN cough #28 caps 08/04/24 Allergies Allergy/AdvReac Type Severity Reaction Status Date / Time aspirin (ASPIRIN) AdvReac Mild GI UPSET Verified 11/06/24 11:19 lisinopril (LISINOPRIL) AdvReac Mild COUGH Verified 11/06/24 11:19 olmesartan (OLMESARTAN) AdvReac Mild DIZZYNESS Verified 11/06/24 11:19 Review of Systems <Sandra Camacho PA-C - Last Filed: 11/06/24 19:21> Review of Systems ROS Unobtainable: All systems reviewed & are unremarkable except as noted in HPI and below Patient History <Sandra Camacho PA-C - Last Filed: 11/06/24 19:21> Medical History Cervical stenosis of spine White coat syndrome with diagnosis of hypertension First degree AV block Arthritis Pneumonia Basal cell carcinoma (Unknown) Osteopenia (10/2012) Bilateral sciatica (~04/2017) Hyperlipidemia (Unknown) Chronic obstructive pulmonary disease Essential hypertension Rosacea Surgical History Hx of dilation and curettage History of colonoscopy Hx of bilateral cataract extraction Hx of tonsillectomy Social History household members: none Smoking Status: Never smoker Tobacco: How many years used: 5 (5 years or so.) second hand exposure: Yes (when I was a child my parents smoked all the time.) alcohol intake: current substance use type: does not use Smoking Status: Never smoker alcohol intake frequency: 0-2 drinks per day Exam <Sandra Camacho PA-C - Last Filed: 11/06/24 19:21> Narrative Exam Narrative: GENERAL: 84 year old patient appears stated age. Well-developed patient, in no acute distress lying in the ER stretcher however does have significant pain and distress with movement. HEAD: Atraumatic. Normocephalic. EYES: No scleral icterus. No injection or drainage. NECK: Trachea midline. Cervical ROM intact. CARDIOVASCULAR: Regular rate and rhythm. RESPIRATORY: ?Nonlabored respirations. ?Speaking in clear, full sentences. ?Clear to auscultation. Breath sounds equal bilaterally. No wheezes, rales, or rhonchi. ? GASTROINTESTINAL: Abdomen soft, non-tender, nondistended. BS present. EXTREMITIES: No edema or joint tenderness. Brisk capillary refill on the toes and palpable DP pulses bilaterally. Sensation intact to light touch on plantar and dorsal aspect of the feet. 5/5 bilateral plantar and dorsiflexion strength, patient is able to flex extend the knees but with discomfort in the low back. BACK: There is no midline or paraspinal muscle tenderness. There is bilateral positive straight leg raise. NEURO: AOx3. ?Clear speech. ?Sensation intact to light touch on bilateral upper and lower extremities, sensation intact to light touch in the groin distribution. SKIN: No rash or erythema of visible areas Initial Vital Signs Initial Vital Signs: Vital Signs Temperature 98.4 F 11/06/24 11:15 Pulse Rate 81 11/06/24 11:15 Respiratory Rate 20 11/06/24 11:15 Blood Pressure 172/81 H 11/06/24 11:15 Pulse Oximetry 97 11/06/24 11:15 Oxygen Delivery Method Room Air 11/06/24 11:15 <Srinath Olvera MD - Last Filed: 11/07/24 06:39> Initial Vital Signs Initial Vital Signs: Vital Signs Temperature 98.4 F 11/06/24 11:15 Pulse Rate 81 11/06/24 11:15 Respiratory Rate 20 11/06/24 11:15 Blood Pressure 172/81 H 11/06/24 11:15 Pulse Oximetry 97 11/06/24 11:15 Oxygen Delivery Method Room Air 11/06/24 11:15 Course <Sandra Camacho PA-C - Last Filed: 11/06/24 19:21> Orders Ordered: ED Orders 11/07/24 01:45 PTT Partial Thromboplastin Bari Q6H 11/07/24 05:00 Hemoglobin and Hematocrit DAILY Platelet Count DAILY 11/07/24 07:45 PTT Partial Thromboplastin Bari Q6H 11/07/24 13:45 PTT Partial Thromboplastin Bari Q6H 11/08/24 05:00 Hemoglobin and Hematocrit DAILY Platelet Count DAILY Acetaminophen (Acetaminophen 325 Mg Tablet) 650 mg PO Q6H PRN PRN Reason: Fever/Mild Pain (1-3) Last Admin: 11/06/24 22:49 Dose: 650 mg Documented By: RAND Calcium Carbonate (Calcium Carbonate 500 Mg Tab) 1,000 mg PO Q4HR PRN PRN Reason: Dyspepsia Chlorthalidone (Chlorthalidone 25 Mg Tablet) 25 mg PO DAILY [facility] Fluticasone Propionate (Fluticasone 120 [place]/16 Gm [place].Susp) 1 spray NASAL DAILY [facility] Heparin Sodium/Dextrose (Heparin Drip) 25,000 unit in 500 mls @ 27.923 mls/hr IV CONT ARTHUR; Protocol Last Titration: 11/07/24 03:30 Dose: 14 units/kg/hr, 21.718 mls/hr Documented By: RAND Co-signed By: IKE Titration: 11/07/24 02:28 Dose: 0 units/kg/hr, 0 mls/hr Documented By: RAND Co-signed By: IKE Admin: 11/06/24 19:38 Dose: 18 units/kg/hr, 27.923 mls/hr Documented By: SANGEETHA Co-signed By: IRWIN Methocarbamol (Methocarbamol 500 Mg Tablet) 1,000 mg PO TID PRN PRN Reason: Muscle Spasm Last Admin: 11/07/24 00:27 Dose: 1,000 mg Documented By: RAND Naloxone HCl (Naloxone 0.4 Mg/Ml Vial) 0.2 mg IV Q2MIN PRN PRN Reason: Opiate Reversal Non-Formulary Medication (Felodipine) 5 mg PO DAILY [facility] Ondansetron HCl (Ondansetron 4 Mg/2 Ml Inj) 4 mg IV Q8HR PRN PRN Reason: Nausea And Vomiting Discontinued Medications Acetaminophen (Acetaminophen 325 Mg Tablet) 650 mg PO NOW ONE Stop: 11/06/24 15:58 Last Admin: 11/06/24 16:36 Dose: 650 mg Documented By: CECILIO Heparin Sodium (Porcine) (Heparin 5,000 Unit/Ml Vial) 6,000 unit 80 unit/kg (6000 unit) IV NOW ONE Stop: 11/06/24 18:38 Last Admin: 11/06/24 20:08 Dose: Not Given Documented By: SANGEETHA Heparin Sodium (Porcine) (Heparin 5,000 Unit/Ml Vial) 5,000 unit IV NOW ONE Stop: 11/06/24 19:16 Last Admin: 11/06/24 19:36 Dose: 5,000 unit Documented By: SANGEETHA Sodium Chloride (Normal Saline 0.9%) 1,000 mls @ 1,000 mls/hr IV BOLUS ONE Stop: 11/06/24 18:46 Last Infusion: 11/06/24 22:00 Dose: Infused Documented By: Admin: 11/06/24 17:51 Dose: 1,000 mls/hr Documented By: CECILIO Ketorolac Tromethamine (Ketorolac 30 Mg/Ml Vial) 15 mg IV NOW ONE Stop: 11/06/24 15:58 Last Admin: 11/06/24 16:34 Dose: 15 mg Documented By: CECILIO Methocarbamol (Methocarbamol 500 Mg Tablet) 1,000 mg PO NOW ONE Stop: 11/06/24 15:58 Last Admin: 11/06/24 16:35 Dose: 1,000 mg Documented By: CECILIO Morphine Sulfate (Morphine 4 Mg/Ml Inj) 4 mg IV NOW ONE Stop: 11/06/24 15:58 Last Admin: 11/06/24 16:34 Dose: 4 mg Documented By: CECILIO Ondansetron HCl (Ondansetron 4 Mg/2 Ml Inj) 4 mg IV NOW ONE Stop: 11/06/24 15:58 Last Admin: 11/06/24 16:36 Dose: 4 mg Documented By: CECILIO Vital Signs Vital signs: Vital Signs - 8 hr 11/06/24 11:15 11/06/24 15:18 11/06/24 15:20 Temperature 98.4 F Pulse Rate 81 86 Respiratory Rate 20 Blood Pressure 172/81 H 172/83 H Pulse Oximetry 97 96 Oxygen Delivery Method Room Air Oxygen Flow Rate 11/06/24 15:20 11/06/24 15:30 11/06/24 15:30 Temperature Pulse Rate 82 82 Respiratory Rate Blood Pressure 172/81 H Pulse Oximetry 96 96 Oxygen Delivery Method Oxygen Flow Rate 11/06/24 16:00 11/06/24 16:00 11/06/24 16:30 Temperature Pulse Rate 90 78 Respiratory Rate Blood Pressure 156/79 H Pulse Oximetry 97 94 Oxygen Delivery Method Room Air Oxygen Flow Rate 11/06/24 16:30 11/06/24 17:00 11/06/24 17:00 Temperature Pulse Rate 84 Respiratory Rate Blood Pressure 153/74 H 148/71 H Pulse Oximetry 98 Oxygen Delivery Method Nasal Cannula Oxygen Flow Rate 2 11/06/24 17:30 11/06/24 18:00 Temperature Pulse Rate 116 H 99 H Respiratory Rate Blood Pressure Pulse Oximetry 98 97 Oxygen Delivery Method Nasal Cannula Oxygen Flow Rate 2 <Srinath Olvera MD - Last Filed: 11/07/24 06:39> Orders Ordered: ED Orders 11/07/24 01:45 PTT Partial Thromboplastin Bari Q6H 11/07/24 05:00 Hemoglobin and Hematocrit DAILY Platelet Count DAILY 11/07/24 07:45 PTT Partial Thromboplastin Bari Q6H 11/07/24 13:45 PTT Partial Thromboplastin Bari Q6H 11/08/24 05:00 Hemoglobin and Hematocrit DAILY Platelet Count DAILY Acetaminophen (Acetaminophen 325 Mg Tablet) 650 mg PO Q6H PRN PRN Reason: Fever/Mild Pain (1-3) Last Admin: 11/06/24 22:49 Dose: 650 mg Documented By: RAND Calcium Carbonate (Calcium Carbonate 500 Mg Tab) 1,000 mg PO Q4HR PRN PRN Reason: Dyspepsia Chlorthalidone (Chlorthalidone 25 Mg Tablet) 25 mg PO DAILY AR[facility] Fluticasone Propionate (Fluticasone 120 [place]/16 Gm [place].Susp) 1 spray NASAL DAILY AR[facility] Heparin Sodium/Dextrose (Heparin Drip) 25,000 unit in 500 mls @ 27.923 mls/hr IV CONT ARTHUR; Protocol Last Titration: 11/07/24 03:30 Dose: 14 units/kg/hr, 21.718 mls/hr Documented By: RAND Co-signed By: IKE Titration: 11/07/24 02:28 Dose: 0 units/kg/hr, 0 mls/hr Documented By: RAND Co-signed By: IKE Admin: 11/06/24 19:38 Dose: 18 units/kg/hr, 27.923 mls/hr Documented By: SANGEETHA Co-signed By: IRWIN Methocarbamol (Methocarbamol 500 Mg Tablet) 1,000 mg PO TID PRN PRN Reason: Muscle Spasm Last Admin: 11/07/24 00:27 Dose: 1,000 mg Documented By: RAND Naloxone HCl (Naloxone 0.4 Mg/Ml Vial) 0.2 mg IV Q2MIN PRN PRN Reason: Opiate Reversal Non-Formulary Medication (Felodipine) 5 mg PO DAILY [facility] Ondansetron HCl (Ondansetron 4 Mg/2 Ml Inj) 4 mg IV Q8HR PRN PRN Reason: Nausea And Vomiting Discontinued Medications Acetaminophen (Acetaminophen 325 Mg Tablet) 650 mg PO NOW ONE Stop: 11/06/24 15:58 Last Admin: 11/06/24 16:36 Dose: 650 mg Documented By: CECILIO Heparin Sodium (Porcine) (Heparin 5,000 Unit/Ml Vial) 6,000 unit 80 unit/kg (6000 unit) IV NOW ONE Stop: 11/06/24 18:38 Last Admin: 11/06/24 20:08 Dose: Not Given Documented By: SANGEETHA Heparin Sodium (Porcine) (Heparin 5,000 Unit/Ml Vial) 5,000 unit IV NOW ONE Stop: 11/06/24 19:16 Last Admin: 11/06/24 19:36 Dose: 5,000 unit Documented By: SANGEETHA Sodium Chloride (Normal Saline 0.9%) 1,000 mls @ 1,000 mls/hr IV BOLUS ONE Stop: 11/06/24 18:46 Last Infusion: 11/06/24 22:00 Dose: Infused Documented By: Admin: 11/06/24 17:51 Dose: 1,000 mls/hr Documented By: CECILIO Ketorolac Tromethamine (Ketorolac 30 Mg/Ml Vial) 15 mg IV NOW ONE Stop: 11/06/24 15:58 Last Admin: 11/06/24 16:34 Dose: 15 mg Documented By: CECILIO Methocarbamol (Methocarbamol 500 Mg Tablet) 1,000 mg PO NOW ONE Stop: 11/06/24 15:58 Last Admin: 11/06/24 16:35 Dose: 1,000 mg Documented By: CECILIO Morphine Sulfate (Morphine 4 Mg/Ml Inj) 4 mg IV NOW ONE Stop: 11/06/24 15:58 Last Admin: 11/06/24 16:34 Dose: 4 mg Documented By: CECILIO Ondansetron HCl (Ondansetron 4 Mg/2 Ml Inj) 4 mg IV NOW ONE Stop: 11/06/24 15:58 Last Admin: 11/06/24 16:36 Dose: 4 mg Documented By: CECILIO Vital Signs Vital signs: Vital Signs - 8 hr 11/06/24 11:15 11/06/24 15:18 11/06/24 15:20 Temperature 98.4 F Pulse Rate 81 86 Respiratory Rate 20 Blood Pressure 172/81 H 172/83 H Pulse Oximetry 97 96 Oxygen Delivery Method Room Air Oxygen Flow Rate 11/06/24 15:20 11/06/24 15:30 11/06/24 15:30 Temperature Pulse Rate 82 82 Respiratory Rate Blood Pressure 172/81 H Pulse Oximetry 96 96 Oxygen Delivery Method Oxygen Flow Rate 11/06/24 16:00 11/06/24 16:00 11/06/24 16:30 Temperature Pulse Rate 90 78 Respiratory Rate Blood Pressure 156/79 H Pulse Oximetry 97 94 Oxygen Delivery Method Room Air Oxygen Flow Rate 11/06/24 16:30 11/06/24 17:00 11/06/24 17:00 Temperature Pulse Rate 84 Respiratory Rate Blood Pressure 153/74 H 148/71 H Pulse Oximetry 98 Oxygen Delivery Method Nasal Cannula Oxygen Flow Rate 2 11/06/24 17:30 11/06/24 18:00 Temperature Pulse Rate 116 H 99 H Respiratory Rate Blood Pressure Pulse Oximetry 98 97 Oxygen Delivery Method Nasal Cannula Oxygen Flow Rate 2 MDM - Back Pain/Injury <Sandra Camacho PA-C - Last Filed: 11/06/24 19:21> Medical Records Attestation: I reviewed the patient's medical records. Lab Data 11/06/24 18:17 11/06/24 18:17 Labs: Lab Results 11/06/24 11/06/24 11/06/24 Range/Units 11:10 17:46 18:17 WBC 9.6 8.3 (4.5-11.0) X10^3/uL RBC 4.31 4.07 (4.0-5.2) X10^6/uL Hgb 15.3 14.5 (12.0-16.0) g/dL Hct 44.8 41.9 (36-46) % MCV 104.0 H 102.9 H (80-100) fL MCH 35.5 H 35.5 H (26-34) PG MCHC 34.1 34.5 (30-36) % RDW 16.1 H 15.8 H (11.6-14.8) % Plt Count 209 176 (150-400) X10^3/uL Neut % (Auto) 83.7 H 80.4 H (50-75) % Lymph % (Auto) 9.2 L 11.2 L (25-40) % [place] % (Auto) 6.3 6.9 (3-14) % Eos % (Auto) 0.2 L 0.3 L (2-4) % Baso % (Auto) 0.6 1.2 (0-2) % Neut # (Auto) 8000 H 6700 (1800-2006) /uL Lymph # (Auto) 900 L 900 L (0495-3439) /uL [place] # (Auto) 600 600 (0-900) /uL Eos # (Auto) 0 0 (0-450) /uL Baso # (Auto) 100 100 (0-100) /uL PT 10.6 (9.4-12.5) SECONDS INR 0.9 (0.9-1.3) APTT 30 (25.1-36.5) SECONDS Sodium 134 L 134 L (137-145) mmol/L Potassium 3.9 3.5 (3.4-5.1) mmol/L Chloride 99 98 (98-107) mmol/L Carbon Dioxide 25 25 (22-32) mmol/L BUN 15 15 (7-17) mg/dL Creatinine 0.90 0.84 (0.52-1.04) mg/dL Estimated GFR > 60 > 60 (>60) mL/min BUN/Creatinine Ratio 16.7 17.9 (6-22) Glucose 130 H 116 H (70-99) mg/dL Calcium 10.1 9.7 (8.4-10.2) mg/dL Total Bilirubin 1.7 H 2.0 H (0.2-1.3) mg/dL AST 48 H 43 H (14-36) IU/L ALT 37 H 32 (<35) IU/L Alkaline Phosphatase 89 79 (38-126) U/L Total Creatine Kinase 132 (30-135) U/L Troponin I < 0.012 (0.01-0.034) ng/mL NT-Pro-B Natriuret Pep 98 (<450) pg/mL Total Protein 8.3 H 7.7 (6.3-8.2) g/dL Albumin 4.6 4.4 (3.5-5.0) g/dL Globulin 3.7 3.3 (1.7-4.1) g/dL Albumin/Globulin Ratio 1.2 1.3 (1.0-2.8) Urine RBC None seen (0-5/HPF) Urine WBC 0-1/hpf (0-5/HPF) Ur Squamous Epith Cells 1-5 /hpf (0-5/HPF) Ur Transition Epith Cell 0-1/hpf (0-5/HPF) Urine Bacteria Few (2-10) H (None) Urine Mucus 1+ H (Negative) Ur Culture Indicated? Cult not indicated Vol Urine Centrifuged 10ml (spun) Urine Dip Bedside Urine Glucose Negative Bedside Urine Bilirubin - Negative Bedside Urine Ketone ++ 40 Urine Specific [place] 1.015 Bedside Urine Occult Blood +/- Bedside Urine pH 6.5 Bedside Urine Protein +/- 15 Bedside Urine Urobilinogen - Negative Bedside Urine Nitrite - Negative Bedside Urine Leukocytes - Negative Esterase Imaging Data CT scan - lumbar: Radiologist's Impression: Imaging results were printed revealing no manoj acute abnormality can be seen. Intact appearing L4-L5 postoperative hardware. Multiple levels no significant lumbar spine degenerative change can be seen. CTA Chest: Radiologist's Impression: PROCEDURE: CT ANGIO CHEST PE PROTOCOL INDICATIONS: hypoxic TECHNIQUE: After the administration of intravenous contrast, 2 mm thick sections acquired from the pulmonary apices to the posterior costophrenic angles. 3-dimensional maximum intensity projection (MIP) coronal and sagittal reformats were then acquired through the thorax. For radiation dose reduction, the following was used: automated exposure control, adjustment of mA and/or kV according to patient size. COMPARISON: [facility], CT, CT LUMBAR SPINE WO CON, 11/06/2024, 12:52. [facility], CR, XR CHEST 2V, 08/04/2024, 14:55. FINDINGS: Image quality: Diagnostic. Pulmonary arteries: Pulmonary arteries are normal in size. There is a mild burden of pulmonary embolism seen involving the right lower lobe pulmonary arteries. Lower Neck: No enlarged lymph nodes. Thyroid: No thyroid nodules which require sonographic follow up, per consensus guidelines. Axillae: No enlarged lymph nodes. Chest Wall: Unremarkable. Bones: Age-appropriate bony degenerative changes are seen. Accentuated thoracic kyphosis is seen. Lungs and Pleura: No pneumothorax or pleural effusions. No consolidation or suspicious nodules. Heart: Heart size is normal. No pericardial effusion. Thoracic Vessels: No aortic aneurysm. Mediastinum and Qing: No enlarged lymph nodes. Esophagus: No wall thickening. No hiatal hernia. Upper Abdomen: Generalized thickening is seen of the adrenal glands, yet without manoj focal nodules. IMPRESSION: There is a mild burden of pulmonary embolism seen involving the right lower lobe pulmonary arteries. No acute cardiopulmonary process. Note: Critical findings discussed by telephone with nurse Felipe at 6:35 p.m. [place] time on November 06, 2024. Dictated by: Elijah Borja M.D. on 11/06/2024 at 17:32 Approved by: Elijah Borja M.D. on 11/06/2024 at 17:37 MDM Narrative Medical decision making narrative: 84-year-old female with a past medical history of hypertension, hyperlipidemia who presents to the emergency department via EMS from home for low back pain. Differential diagnosis includes but is not limited to lumbar degenerative disc disease, spinal stenosis, herniated disc, bulging disc, lumbar radiculopathy, muscle spasm, electrolyte abnormality, etc. On exam the patient is in no acute distress, nontoxic-appearing, visibly uncomfortable with position changes. She has no midline spinal tenderness but does have positive straight leg raise bilaterally and significant pain with movement. No direct trauma. No fevers. No saddle anesthesia bowel or bladder incontinence. We will treat patient multimodal therapy including morphine, Zofran, Toradol, Tylenol, Robaxin, prednisone. CT lumbar spine ordered in triage. 165: Discussed imaging results with the patient and her friend at bedside. She is receiving medications at this time. 1734: Patient's back pain improved significantly. She was able to sit up and stand with minimal assistance, attempted ambulation trial, patient became hypoxic with oxygen going into low 80s. She denies chest pain or shortness of breath, but does feel quite shaky. CTA ordered in addition to EKG, troponin. Maintaining low 90s on 2L NC. 183: Radiology called, patient does have mild burden of pulmonary embolism seen within the right lower lobe pulmonary arteries. This is likely causing her new oxygen requirements. Heparin, PE protocol ordered. Patient denies history of VTE. Denies a history of recent surgery, prolonged bed rest, prolonged travel, immobility, injury, lower leg swelling or pain. She also denies any bleeding risk factor such as melena, bright red blood in the stool, hematuria, bloody emesis, recent head trauma, recent surgery, history of brain bleed or other spontaneous bleed. She is agreeable to initiation of heparin at this time. She is maintaining low 90s on 2 L, in no respiratory distress. Hospital PE protocol starts at heparin 6,000 bolus but will decrease to 5,000 bolus after discussion with attending, Dr. Olvera. Additional lab work reveal negative/undetectable troponin, normal BNP 98. Normal PT, INR, APTT. 1899: Discussed case with hospitalist Dr. Pacheco. He accepts the patient for admission, we will start with observation however patient is continuing to need option requirement tomorrow may need to go inpatient. <Srinath Olvera MD - Last Filed: 11/07/24 06:39> Lab Data Labs: Lab Results 11/06/24 11/06/24 11/06/24 Range/Units 11:10 17:46 18:17 WBC 9.6 8.3 (4.5-11.0) X10^3/uL RBC 4.31 4.07 (4.0-5.2) X10^6/uL Hgb 15.3 14.5 (12.0-16.0) g/dL Hct 44.8 41.9 (36-46) % MCV 104.0 H 102.9 H (80-100) fL MCH 35.5 H 35.5 H (26-34) PG MCHC 34.1 34.5 (30-36) % RDW 16.1 H 15.8 H (11.6-14.8) % Plt Count 209 176 (150-400) X10^3/uL Neut % (Auto) 83.7 H 80.4 H (50-75) % Lymph % (Auto) 9.2 L 11.2 L (25-40) % [place] % (Auto) 6.3 6.9 (3-14) % Eos % (Auto) 0.2 L 0.3 L (2-4) % Baso % (Auto) 0.6 1.2 (0-2) % Neut # (Auto) 8000 H 6700 (4635-4608) /uL Lymph # (Auto) 900 L 900 L (4881-1215) /uL [place] # (Auto) 600 600 (0-900) /uL Eos # (Auto) 0 0 (0-450) /uL Baso # (Auto) 100 100 (0-100) /uL PT 10.6 (9.4-12.5) SECONDS INR 0.9 (0.9-1.3) APTT 30 (25.1-36.5) SECONDS Sodium 134 L 134 L (137-145) mmol/L Potassium 3.9 3.5 (3.4-5.1) mmol/L Chloride 99 98 (98-107) mmol/L Carbon Dioxide 25 25 (22-32) mmol/L BUN 15 15 (7-17) mg/dL Creatinine 0.90 0.84 (0.52-1.04) mg/dL Estimated GFR > 60 > 60 (>60) mL/min BUN/Creatinine Ratio 16.7 17.9 (6-22) Glucose 130 H 116 H (70-99) mg/dL Calcium 10.1 9.7 (8.4-10.2) mg/dL Total Bilirubin 1.7 H 2.0 H (0.2-1.3) mg/dL AST 48 H 43 H (14-36) IU/L ALT 37 H 32 (<35) IU/L Alkaline Phosphatase 89 79 (38-126) U/L Total Creatine Kinase 132 (30-135) U/L Troponin I < 0.012 (0.01-0.034) ng/mL NT-Pro-B Natriuret Pep 98 (<450) pg/mL Total Protein 8.3 H 7.7 (6.3-8.2) g/dL Albumin 4.6 4.4 (3.5-5.0) g/dL Globulin 3.7 3.3 (1.7-4.1) g/dL Albumin/Globulin Ratio 1.2 1.3 (1.0-2.8) Urine RBC None seen (0-5/HPF) Urine WBC 0-1/hpf (0-5/HPF) Ur Squamous Epith Cells 1-5 /hpf (0-5/HPF) Ur Transition Epith Cell 0-1/hpf (0-5/HPF) Urine Bacteria Few (2-10) H (None) Urine Mucus 1+ H (Negative) Ur Culture Indicated? Cult not indicated Vol Urine Centrifuged 10ml (spun) Urine Dip Bedside Urine Glucose Negative Bedside Urine Bilirubin - Negative Bedside Urine Ketone ++ 40 Urine Specific [place] 1.015 Bedside Urine Occult Blood +/- Bedside Urine pH 6.5 Bedside Urine Protein +/- 15 Bedside Urine Urobilinogen - Negative Bedside Urine Nitrite - Negative Bedside Urine Leukocytes - Negative Esterase Discharge Plan Departure Patient Disposition: Admitted as Observation Clinical Impression: Pulmonary embolism Qualifiers: Pulmonary embolism type: single subsegmental (without acute cor pulmonale) Qualified Code(s): I26.93 - Single subsegmental thrombotic pulmonary embolism without acute cor pulmonale Back pain Qualifiers: Back pain location: low back pain Chronicity: acute Back pain laterality: bilateral Sciatica presence: without sciatica Qualified Code(s): M54.50 - Low back pain, unspecified Admit Date/Time: 11/06/24 19:06 Admit Provider: Antolin Pacheco ED Sign-out <Srinath Olvera MD - Last Filed: 11/07/24 06:39> Cosign ED Attending Gloria Attestation: I was immediately available in the department for consultation. This documentation has been reviewed and I agree with assessment and plan. Supervised by Srinath Olvera MD
[2024-11-06 16:06] LABS: Add Manual Diff / Slide Review NO; Hematocrit 44.8 % (36-46); Hemoglobin 15.3 g/dL (12.0-16.0); Lymphocytes Absolute Auto 900 /uL (1100-4500); Mean Corpuscular HGB Conc 34.1 % (30-36); Mean Corpuscular Hemoglobin 35.5 PG (26-34); Mean Corpuscular Volume 104.0 fL (80-100); Platelet Count 209 X10^3/uL (150-400)
[2024-11-06 16:10] LABS: Alanine Aminotransferase 37 IU/L (<35); Albumin 4.6 g/dL (3.5-5.0); Albumin Globulin Ratio 1.2 (1.0-2.8); Alkaline Phosphatase 89 U/L (38-126); Blood Urea Nitrogen 15 mg/dL (7-17); Calcium 10.1 mg/dL (8.4-10.2); Carbon Dioxide 25 mmol/L (22-32); Chloride 99 mmol/L (98-107); Estimated Glomerular Filt Rate > 60 mL/min (>60); Globulin 3.7 g/dL (1.7-4.1); Glucose 130 mg/dL (70-99); HEMOLYSIS < 15 (0-50); Potassium 3.9 mmol/L (3.4-5.1); Sodium 134 mmol/L (137-145); Total Protein 8.3 g/dL (6.3-8.2)
[2024-11-06] MEDS: KETOROLAC 30 MG/ML VIAL 15 MG IV (16:34)
[2024-11-06] MEDS: MORPHINE 4 MG/ML INJ IV (16:34)
[2024-11-06] MEDS: ONDANSETRON 4 MG/2 ML INJ IV (16:36)
[2024-11-06] MEDS: ACETAMINOPHEN 325 MG TABLET 650 MG PO ×2 (16:36→22:49)
--- NOTE | 2024-11-06 17:35 | DI.CT.S_ITS ---
PROCEDURE: CT ANGIO CHEST PE PROTOCOL INDICATIONS: hypoxic TECHNIQUE: After the administration of intravenous contrast, 2 mm thick sections acquired from the pulmonary apices to the posterior costophrenic angles. 3-dimensional maximum intensity projection (MIP) coronal and sagittal reformats were then acquired through the thorax. For radiation dose reduction, the following was used: automated exposure control, adjustment of mA and/or kV according to patient size. COMPARISON: [facility], CT, CT LUMBAR SPINE WO CON, 11/06/2024, 12:52. [facility], CR, XR CHEST 2V, 08/04/2024, 14:55. FINDINGS: Image quality: Diagnostic. Pulmonary arteries: Pulmonary arteries are normal in size. There is a mild burden of pulmonary embolism seen involving the right lower lobe pulmonary arteries. Lower Neck: No enlarged lymph nodes. Thyroid: No thyroid nodules which require sonographic follow up, per consensus guidelines. Axillae: No enlarged lymph nodes. Chest Wall: Unremarkable. Bones: Age-appropriate bony degenerative changes are seen. Accentuated thoracic kyphosis is seen. Lungs and Pleura: No pneumothorax or pleural effusions. No consolidation or suspicious nodules. Heart: Heart size is normal. No pericardial effusion. Thoracic Vessels: No aortic aneurysm. Mediastinum and Qing: No enlarged lymph nodes. Esophagus: No wall thickening. No hiatal hernia. Upper Abdomen: Generalized thickening is seen of the adrenal glands, yet without manoj focal nodules. IMPRESSION: There is a mild burden of pulmonary embolism seen involving the right lower lobe pulmonary arteries. No acute cardiopulmonary process. Note: Critical findings discussed by telephone with nurse Wang at 6:35 p.m. [place] time on November 06, 2024. Dictated by: Elijah Borja M.D. on 11/06/2024 at 17:32 Approved by: Elijah Borja M.D. on 11/06/2024 at 17:37
--- NOTE | 2024-11-06 17:36 | EKG_ITS ---
[address] [address] Test Date: 2024-11-06 Pat Name: Leigh Nj Department: [facility] Room: Gender: Female Senior Sql Dba: kathy : 1940 Requested By: Order Number: [id number] Reading MD: Jono Suggs MD Measurements Intervals [place] Rate: 91 P: 63 KS: 204 QRS: 15 QRSD: 76 T: 37 QT: 374 QTc: 460 Interpretive Statements Normal sinus rhythm Electronically Signed On 11-10-2024 10:25:20 PDT by Jono Suggs MD
[2024-11-06] MEDS: SODIUM CHLORIDE 0.9% 1,000 ML 1000 ML IV (17:51)
[2024-11-06 18:26] LABS: Add Manual Diff / Slide Review NO; Hematocrit 41.9 % (36-46); Hemoglobin 14.5 g/dL (12.0-16.0); Lymphocytes Absolute Auto 900 /uL (1100-4500); Mean Corpuscular HGB Conc 34.5 % (30-36); Mean Corpuscular Hemoglobin 35.5 PG (26-34); Mean Corpuscular Volume 102.9 fL (80-100); Platelet Count 176 X10^3/uL (150-400)
[2024-11-06 18:45] LABS: Alanine Aminotransferase 32 IU/L (<35); Albumin 4.4 g/dL (3.5-5.0); Albumin Globulin Ratio 1.3 (1.0-2.8); Alkaline Phosphatase 79 U/L (38-126); Blood Urea Nitrogen 15 mg/dL (7-17); Calcium 9.7 mg/dL (8.4-10.2); Carbon Dioxide 25 mmol/L (22-32); Chloride 98 mmol/L (98-107); Creatine Kinase 132 U/L (30-135); Estimated Glomerular Filt Rate > 60 mL/min (>60); Globulin 3.3 g/dL (1.7-4.1); Glucose 116 mg/dL (70-99); HEMOLYSIS < 15 (0-50); Potassium 3.5 mmol/L (3.4-5.1); Sodium 134 mmol/L (137-145); Total Protein 7.7 g/dL (6.3-8.2)
[2024-11-06 18:52] LABS: INR 0.9 (0.9-1.3); Prothrombin Time 10.6 SECONDS (9.4-12.5)
[2024-11-06 18:55] LABS: PTT Partial Thromboplastin Tim 30 SECONDS (25.1-36.5)
[2024-11-06 18:57] LABS: NT-proBNP (BNP-Adult 18+) 98 pg/mL (<450); Troponin I < 0.012 ng/mL (0.01-0.034)
[2024-11-06 19:29] LABS: Culture Indicated Urine Cult Not Indicated
[2024-11-06] MEDS: HEPARIN 5,000 UNIT/ML VIAL 5000 UNIT IV (19:36)
[2024-11-06] MEDS: HEPARIN DRIP 25,000 UNIT/500 ML IV.SOLN 27.923 UNIT IV (19:38)
--- NOTE | 2024-11-06 19:52 | PC.NURSE ---
Snacks provided per patient request
--- NOTE | 2024-11-06 21:07 | PC.NURSE ---
Daughter Brooke called for update. Confirmed with patient ok to give info. Update given, questions answered.
[2024-11-07 02:29] LABS: PTT Partial Thromboplastin Tim 200 SECONDS (25.1-36.5)
[2024-11-07 03:00] VITALS: BP 156/90; PULSE 68; RESP 18; TEMP 36.5; O2SAT 98
--- NOTE | 2024-11-07 07:45 | P.HP_ITS ---
History of Present Illness History of Present Illness Date Patient Seen: 11/07/24 Chief complaint: Back Pain Narrative: Pt is a 84yo woman with HTN, COPD, hyperlipidemia, and hx of prior lumbar back surgery who presented with acute onset of severe low back pain. The pt reports that yesterday morning out of the blue she developed severe lower back pain. She denies any trauma or inciting event. She had not been particularly active the day prior. The pain did not radiate into her legs, it was just centrally located in the lower back. The pain is sharp in nature. It makes it very challenging for her to move and ambulate, she can't find a comfortable position in bed. She denies any saddle anesthesia, new urinary incontinence. In the ED, CT of the lumbar spine was completed that was reportedly read as normal. She received Morphine, Zofran, Toradol, Tylenol, Robaxin, and Prednisone for the pain with some improvement in her symptoms. However, she was then noted to be hypoxic requiring 2L of oxygen. CT PE was completed that showed pulmonary emboli, and the pt was initiated on a Heparin drip. This morning, the pts main complaint is ongoing low back pain. She states it is still excrutiating, and now making her feel nauseous. She continues to deny and radicular symptoms. She states that she does not feel SOB, is is more annoyed with the [place] oxygen than anything. [facility] Medical History Cervical stenosis of spine White coat syndrome with diagnosis of hypertension First degree AV block Arthritis Pneumonia Basal cell carcinoma (Unknown) Osteopenia (10/2012) Bilateral sciatica (~04/2017) Hyperlipidemia (Unknown) Chronic obstructive pulmonary disease Essential hypertension Rosacea Surgical History Hx of dilation and curettage History of colonoscopy Hx of bilateral cataract extraction Hx of tonsillectomy Social History household members: none Smoking Status: Never smoker Tobacco: How many years used: 5 (5 years or so.) second hand exposure: Yes (when I was a child my parents smoked all the time.) alcohol intake: current substance use type: does not use Meds Home Medications and Allergies Home Medications ?Medication ?Instructions ?Recorded ?Confirmed ?Type Fish Oil See Rx Instructions .Route . COMPLEX 09/14/18 08/16/24 History chlorthalidone 25 mg tablet 25 mg PO DAILY 12/06/20 History felodipine 5 mg tablet,extended 5 mg PO DAILY 12/06/20 08/16/24 History release 24 hr milk thistle See Rx Instructions .Route . COMPLEX 04/23/22 08/16/24 History fluticasone propionate 50 1 spray intranasal DAILY #16 grams 02/24/24 08/16/24 Rx mcg/actuation nasal spray,suspension (Flonase Allergy Relief) benzonatate 200 mg capsule 200 mg PO BID PRN cough #28 caps 08/04/24 08/16/24 Rx Allergies Allergy/AdvReac Type Severity Reaction Status Date / Time aspirin (ASPIRIN) AdvReac Mild GI UPSET Verified 11/06/24 11:19 lisinopril (LISINOPRIL) AdvReac Mild COUGH Verified 11/06/24 11:19 olmesartan (OLMESARTAN) AdvReac Mild DIZZYNESS Verified 11/06/24 11:19 Exam Vital Signs (past 8 hours): - 11/07/24 03:00 Temperature 97.7 F Pulse Rate 68 Respiratory Rate 18 Blood Pressure 156/90 H Pulse Oximetry 98 Oxygen Flow Rate 1 Oxygen Delivery Method Nasal Cannula Oxygen Flow Rate 1 Narrative Exam Narrative: Gen: NAD, sitting in bed, moving frequently to get comfortable HEENT: normocephalic, atraumatic, sclera clear Neck: no JVD CV: RRR, no murmurs Resp: clear to auscultation bilaterally, no wheezes or crackles Abd: soft, nontender, nondistended Back: point tender over lumbar vertebral column without paraspinal tenderness Ext: no edema Neuro: sensation intact bilateral LE, 5/5 strength Objective Labs 11/07/24 08:45 11/06/24 18:17 Labs: Laboratory Results - last 24 hr 11/06/24 11/06/24 11/06/24 11:10 17:46 18:17 WBC 9.6 8.3 RBC 4.31 4.07 Hgb 15.3 14.5 Hct 44.8 41.9 MCV 104.0 H 102.9 H MCH 35.5 H 35.5 H MCHC 34.1 34.5 RDW 16.1 H 15.8 H Plt Count 209 176 Neut % (Auto) 83.7 H 80.4 H Lymph % (Auto) 9.2 L 11.2 L [place] % (Auto) 6.3 6.9 Eos % (Auto) 0.2 L 0.3 L Baso % (Auto) 0.6 1.2 Neut # (Auto) 8000 H 6700 Lymph # (Auto) 900 L 900 L [place] # (Auto) 600 600 Eos # (Auto) 0 0 Baso # (Auto) 100 100 PT 10.6 INR 0.9 APTT 30 Sodium 134 L 134 L Potassium 3.9 3.5 Chloride 99 98 Carbon Dioxide 25 25 BUN 15 15 Creatinine 0.90 0.84 Estimated GFR > 60 > 60 BUN/Creatinine Ratio 16.7 17.9 Glucose 130 H 116 H Calcium 10.1 9.7 Total Bilirubin 1.7 H 2.0 H AST 48 H 43 H ALT 37 H 32 Alkaline Phosphatase 89 79 Total Creatine Kinase 132 Troponin I < 0.012 NT-Pro-B Natriuret Pep 98 Total Protein 8.3 H 7.7 Albumin 4.6 4.4 Globulin 3.7 3.3 Albumin/Globulin Ratio 1.2 1.3 Urine RBC None seen Urine WBC 0-1/hpf Ur Squamous Epith Cells 1-5 /hpf Ur Transition Epith Cell 0-1/hpf Urine Bacteria Few (2-10) H Urine Mucus 1+ H Ur Culture Indicated? Cult not indicated Vol Urine Centrifuged 10ml (spun) 11/07/24 01:45 WBC RBC Hgb Hct MCV MCH MCHC RDW Plt Count Neut % (Auto) Lymph % (Auto) [place] % (Auto) Eos % (Auto) Baso % (Auto) Neut # (Auto) Lymph # (Auto) [place] # (Auto) Eos # (Auto) Baso # (Auto) PT INR APTT 200 H* D Sodium Potassium Chloride Carbon Dioxide BUN Creatinine Estimated GFR BUN/Creatinine Ratio Glucose Calcium Total Bilirubin AST ALT Alkaline Phosphatase Total Creatine Kinase Troponin I NT-Pro-B Natriuret Pep Total Protein Albumin Globulin Albumin/Globulin Ratio Urine RBC Urine WBC Ur Squamous Epith Cells Ur Transition Epith Cell Urine Bacteria Urine Mucus Ur Culture Indicated? Vol Urine Centrifuged Assessment & Plan Assessment & Plan narrative: Pt is a 84yo woman with HTN, COPD, hyperlipidemia, and hx of prior lumbar back surgery who presented with acute onset of severe low back pain. Then found to have pulmonary embolism on CT PE when became hypoxic. 1) Pulmonary embolism: Unprovoked, no hx of blood clots. - Continue Heparin drip, plan to transition to oral agent tomorrow - Labs as per protocol with appropriate titration - Plan to continue oral agent for 3 months - Continue oxygen as needed - Echocardiogram today 2) Acute respiratory failure: Due to PE - Wean oxygen as able 3) Acute low back pain: Final read from CT no available, however based on ER note no concerning findings. Most suggestive of compression fracture, however, based on point tenderness on exam. - Start Oxycodone PO for pain - Continue Morphine PRN for pain - Change to Baclofen for pain relief - Tylenol PRN - Cannot use NSAIDs due to Heparin unfortunately - PT/OT consulted 4) HTN: Stable - Continue home medications FEN: General diet Code: Full DVT ppx: Heparin as above Dispo: Pending stability off oxygen, improvement in back pain. Anticipate 1-2 additional midnights. Time-Based Coding :: [TOTAL MINUTES] spent with patient and on the chart (including review of chart, obtaining history, exam, reviewing outside data, placing orders, documenting exam and treatment plan, and counseling patient) on [DATE]. Quality VTE Deep Vein Thrombosis/Pulmonary Embolism Present on Admission: Yes PROFEE Nursing Executive Document charge(s): Yes Charge Codes Initial inpatient/observation care: 53674
--- NOTE | 2024-11-07 07:48 | DI.ECHO.S_ITS ---
[place] [facility] : : [address] : : [place] : : [id number] : : Phone: [phone] Echocardiogram Report + + :Name: ZOFIA MCCORMICK Study Date: 11/07/2024 Height: 66.5 in: :[facility] ReadingLocation: Weight: 171 lb : : Gender: Female BSA: 1.9 m2 : :: 1940 Age: 84 yrs BP: 143/84 mmHg: :Reason For Study: HYPOXIA : :Ordering Physician: LASHAY : :CINTHIA Performed By: Anahi Fong : :Referring: CINTHIA METZ : + + Interpretation Summary Normal left ventricle size with ejection fraction 65-70%. No significant valvular abnormality. Procedure: A two-dimensional transthoracic echocardiogram with color flow and Doppler was performed. There is no prior echocardiogram noted for this patient. The patient was in normal sinus rhythm during the exam. Left Ventricle: The left ventricle is normal in size and wall thickness. The ejection fraction is estimated to be 65-70%. There are no focal wall motion abnormalities. Normal diastolic function. Right Ventricle: The right ventricle is normal in size and function. Atria: Both atria are normal in size. Mitral Valve: The mitral valve leaflets appear to open well. There is no mitral regurgitation noted. Aortic Valve: The aortic valve is trileaflet. The aortic valve opens well. The aortic valve is slightly calcified. There is no aortic valve stenosis. No aortic regurgitation is present. Tricuspid Valve: The tricuspid valve leaflets are thin and pliable. Pulmonary artery pressures cannot be estimated because of the lack of a measurable TR jet velocity but the IVC suggests a CVP of around 3 mmHg. No tricuspid regurgitation. Pulmonic Valve: The pulmonic valve leaflets are thin and pliable; valve motion is normal. There is trace pulmonic regurgitation. Great Vessels: The aortic root is normal size. The dimensions of the ascending aorta are normal. The IVC is of normal diameter and collapses greater than 50% with a sniff. This suggests a low right atrial pressure of 3 mm Hg. Pericardium/ Pleura There is a trivial pericardial effusion noted. There is no pleural effusion. MMode/2D Measurements & Calculations LVIDd: 3.7 cm LVOT diam: 2.2 cm LVIDs: 2.3 cm Ao root diam: 3.2 cm FS: 37.2 % asc Aorta Diam: 3.6 cm IVSd: 0.90 cm LVPWd: 1.0 cm LV salmeron. diameter/BSA (cm/m^2): 2.0 LV sys. diameter/BSA (cm/m^2): 1.2 LA A2 area: 14.1 cm2 RA long axis: 5.1 cm LA A4 area: 16.3 cm2 RA area: 13.9 cm2 LA length (vol): 5.8 cm RA vol: 32.4 ml LA vol: 34.1 ml RA : 17.2 ml/m2 LA vol index: 18.1 ml/m2 IVC diam: 0.99 cm RVD1 (basal): 4.2 cm TAPSE: 2.9 cm Doppler Measurements & Calculations Ao V2 max: 149.7 cm/sec LVOT Max Kevin: 115.1 cm/sec Ao V2 mean: 104.1 cm/sec LV V1 max P.3 mmHg Ao max P.0 mmHg LV V1 VTI: 25.2 cm Ao mean P.7 mmHg ELINOR(I,D): 3.3 cm2 Ao V2 VTI: 29.0 cm ELINOR(V,D): 2.9 cm2 sev ratio: 0.87 ELINOR indexed to BSA (cm^2/m^2): 1.8 MV E max kevin: 62.5 cm/sec PA V2 max: 117.0 cm/sec MV A max kevin: 72.0 cm/sec PA V2 mean: 86.3 cm/sec MV E/A: 0.87 PA mean P.2 mmHg Med Peak E' Kevin: 7.9 cm/sec PA pr(Accel): 39.6 mmHg E/E' med: 7.9 Lat Peak E' Kevin: 5.9 cm/sec E/E' lat: 10.7 E/e' average: 9.3 MV dec time: 0.24 sec SV(LVOT): 96.1 ml Electronically signed by: Priscilla Garcia on Reading Physician:11/07/2024 04:23 PM
[2024-11-07 08:00] VITALS: BP 143/84; PULSE 79; RESP 20; TEMP 36.4; O2SAT 96
[2024-11-07 09:01] LABS: Hematocrit 40.5 % (36-46); Hemoglobin 13.8 g/dL (12.0-16.0); Platelet Count 170 X10^3/uL (150-400)
[2024-11-07] MEDS: ONDANSETRON 4 MG/2 ML INJ IV (09:07)
[2024-11-07] MEDS: MORPHINE 4 MG/ML INJ IV ×2 (09:08→14:55)
[2024-11-07] MEDS: CHLORTHALIDONE 25 MG TABLET PO (09:30)
[2024-11-07 09:34] LABS: PTT Partial Thromboplastin Tim 140 SECONDS (25.1-36.5)
[2024-11-07] MEDS: FELODIPINE 5 MG 5 EACH PO (12:33)
[2024-11-07 14:00] VITALS: BP 135/68; PULSE 78; RESP 16; TEMP 36.9; O2SAT 95
--- NOTE | 2024-11-07 15:43 | CM.DANOTE ---
Patient is an 84 yo female who was admitted on 11/06/24 for Back Pain and Pulmonary Embolism. Pt has [facility] and [facility] for [facility] and her PCP is Dr. Grecia Tabor. EMR was reviewed. Per MD, pt with chronic back pain and prior surgeries but typically independent at baseline and admitted for pain management and currently on hep drip for embolism and to have Echo today bedside. Not yet stable for discharge. Currently on oxygen. Once more medically stable, could likely benefit from PT eval due to new ambulation issues. SW met bedside with pt and explained role and she confirms she lives at home in [place] in a small house with 6 steps to enter but only one story once in the house and closest family is her Dtr/POA Brooke in [facility]. Pt states Dtr likely will be driving up tonight to check on patient and provide assist as needed. Pt is typically independent with ADLs, using a walking stick just to remind her not to slouch, no home O2 at baseline, still drives. Pt's best friend Reg lives nearby and they typically do gardening and growing their own veggies. Pt quite below baseline currently with ambulation and states she feels groggy and foggy. Pt preference is to d/c home via friend or Dtr POV when stable and denies any hx of HH or SNF. Pt would be agreeable with HH if needed. Pt states Dr. Tabor is a new PCP to her and has only had a couple appointments with her previous to this admission. Echo arrived bedside. Plan: SW to follow for patient progress and possible need for for PT eval due to ambulation issues/pain to confirm safe plan of home and r/o HH. PATO Pedroza Discharge Planning/Care Management Advanced directive, confirm from FAMILY Start: 11/06/24 22:23 Freq: Q24H Status: Active Protocol: Document 11/06/24 22:23 MW (Rec: 11/06/24 22:25 MW [id number]) Advance Directive, confirm on record Time 22:25 Person contacted pt Copy received No CM Discharge Assessment Start: 11/06/24 21:34 Freq: Status: Active Protocol: Document 11/07/24 15:41 BF (Rec: 11/07/24 15:43 BF [id number]) Discharge Planning Assessment Assigned Discharge PATO Baez Development Executive DPOA/Assigned Dtr Brooke in [place] Designee Name Contact Information [phone] Advance Directives? Yes: Living will Advance Directives No on File History Provided By Patient,Medical Record Has Patient been No admitted in last 30 days? Prior Living House Arrangements Household Members none Type of Drives own vehicle transporation used prior to admit Independent with ADL Yes 's Is patient alert and Yes oriented? Caregiver for No Another DME Already Rented / Cane Owned Comment Walking stick Comment Pending PT/OT eval and recommendations Barriers to No Discharge Discharge Plan Home Transportation Patient's friend plans to stay with pt at d/c for a few Arrangement weeks and can provide transport home, Dtr might be driving up from [place] Additional Comment Pending PT eval Whiteboard Updated Yes in Patient Room with name and ext. # of Correctional Supervisor Review Status In Process Please Provide Date 11/07/24 Initial DC Assessment Was Performed Next Review Type Continued Stay Review
[2024-11-07] MEDS: BACLOFEN 10 MG TABLET PO ×2 (16:46→20:41)
[2024-11-07] MEDS: ACETAMINOPHEN 325 MG TABLET 650 MG PO (16:46)
[2024-11-07 17:20] LABS: PTT Partial Thromboplastin Tim 65 SECONDS (25.1-36.5)
[2024-11-07 20:00] VITALS: BP 123/67; PULSE 80; RESP 16; TEMP 37.1; O2SAT 92
[2024-11-07] MEDS: HEPARIN DRIP 25,000 UNIT/500 ML IV.SOLN 17.064 UNIT IV (20:14)
[2024-11-07] MEDS: SODIUM CHLORIDE 0.9% FLUSH 10 ML IV (20:41)
[2024-11-07 23:18] LABS: PTT Partial Thromboplastin Tim 50 SECONDS (25.1-36.5)
[2024-11-08] VITALS: BP 150/82; PULSE 91; RESP 13; TEMP 36.6; O2SAT 97
[2024-11-08 06:24] LABS: Hematocrit 38.7 % (36-46); Hemoglobin 13.5 g/dL (12.0-16.0); Platelet Count 159 X10^3/uL (150-400)
[2024-11-08 06:44] LABS: PTT Partial Thromboplastin Tim 78 SECONDS (25.1-36.5)
[2024-11-08 08:00] VITALS: BP 142/84; PULSE 72; RESP 20
--- NOTE | 2024-11-08 08:11 | PM.PN.IH.1 ---
Subjective Subjective Interval history: The pt reports that last night her back pain was significantly improved. She is not yet sure how it feels this morning, but is able to move in bed more easily. She continues to deny and chest pain, SOB, cough despite still having an oxygen requirement. She has not had a BM in several days. Exam Vital Signs (past 8 hours): Oxygen Delivery Method Nasal Cannula Oxygen Flow Rate 1 Narrative Exam Narrative: Gen: NAD, sitting in bed, appears comfortable CV: RRR, no murmurs Resp: clear to auscultation bilaterally, no wheezes or crackles Abd: soft, nontender, nondistended Back: no acute tenderness today Ext: no edema Objective Labs 11/08/24 05:30 11/06/24 18:17 Labs: Laboratory Results - last 24 hr 11/07/24 11/07/24 11/07/24 08:45 17:00 22:50 Hgb 13.8 Hct 40.5 Plt Count 170 APTT 140 H* D 65 H D 50 H D 11/08/24 05:30 Hgb 13.5 Hct 38.7 Plt Count 159 APTT 78 H* D PFSH Medical History Cervical stenosis of spine White coat syndrome with diagnosis of hypertension First degree AV block Arthritis Pneumonia Basal cell carcinoma (Unknown) Osteopenia (10/2012) Bilateral sciatica (~04/2017) Hyperlipidemia (Unknown) Chronic obstructive pulmonary disease Essential hypertension Rosacea Surgical History Hx of dilation and curettage History of colonoscopy Hx of bilateral cataract extraction Hx of tonsillectomy Social History household members: none Smoking Status: Never smoker Tobacco: How many years used: 5 (5 years or so.) second hand exposure: Yes (when I was a child my parents smoked all the time.) alcohol intake: current substance use type: does not use Assessment & Plan Assessment & Plan narrative: Pt is a 84yo woman with HTN, COPD, hyperlipidemia, and hx of prior lumbar back surgery who presented with acute onset of severe low back pain. Then found to have pulmonary embolism on CT PE when became hypoxic. 1) Pulmonary embolism: Unprovoked, no hx of blood clots. Echo normal yesterday. - Transition to Eliquis 10mg BID, plan to continue for 3 months - Continue oxygen as needed, work to titrate off 2) Acute respiratory failure: Due to PE - Wean oxygen as able 3) Acute low back pain: CT without acute findings. - Start Oxycodone PO for pain - Continue Morphine PRN for breakthrough pain - has not needed since yesterday afternoon - Change to Baclofen for pain relief - Tylenol PRN - Cannot use NSAIDs due to Heparin unfortunately - PT/OT consulted. If severity of pain increases significantly after working with them, will plan to obtain MRI of lumbar spine. 4) HTN: Stable - Continue home medications FEN: General diet Code: Full DVT ppx: Heparin as above Dispo: Pending stability off oxygen, improvement in back pain. Hopefully stable for d/c tomorrow. Time-Based Coding :: [TOTAL MINUTES] spent with patient and on the chart (including review of chart, obtaining history, exam, reviewing outside data, placing orders, documenting exam and treatment plan, and counseling patient) on [DATE]. Quality VTE Deep Vein Thrombosis/Pulmonary Embolism Present on Admission: Yes PROFEE Transmission Assembler Document charge(s): Yes Charge Codes Subsequent inpatient/observation care: [id number]
[2024-11-08] MEDS: SODIUM CHLORIDE 0.9% FLUSH 10 ML IV ×2 (09:00→21:23)
[2024-11-08] MEDS: CHLORTHALIDONE 25 MG TABLET PO (09:18)
[2024-11-08] MEDS: APIXABAN 5 MG TABLET 10 MG PO ×2 (09:18→21:01)
[2024-11-08] MEDS: BACLOFEN 10 MG TABLET PO ×3 (09:18→21:02)
[2024-11-08] MEDS: ACETAMINOPHEN 325 MG TABLET 650 MG PO (09:26)
[2024-11-08] MEDS: FELODIPINE 5 MG 5 EACH PO (09:27)
--- NOTE | 2024-11-08 09:30 | OT.IP.EVAL ---
Past Medical History (Last Reviewed 11/06/24 @ 16:02 by Sandra Camacho PA-C) Arthritis Basal cell carcinoma (Unknown) Bilateral sciatica (~04/2017) Cervical stenosis of spine Chronic obstructive pulmonary disease Essential hypertension First degree AV block Hyperlipidemia (Unknown) Osteopenia (10/2012) Pneumonia Rosacea White coat syndrome with diagnosis of hypertension Surgical History (Last Reviewed 11/06/24 @ 16:02 by Sandra Camacho PA-C) History of colonoscopy Hx of bilateral cataract extraction Hx of dilation and curettage Hx of tonsillectomy Occupational Therapy Inpatient Evaluation/Re-Eval M1 PT/OT-IP Prior Functional Status Start: 11/08/24 09:22 Freq: NEEDED Status: Active Protocol: Document 11/08/24 09:22 [facility] (Rec: 11/08/24 09:36 [facility] Desktop) Medical Review Prior Functional Status Communication I Mobility and Gait Pt uses a trekking pole to walk in the community and able to walk one mile prior to coming to the hospital [place]. Activities of Daily Pt completely independent with all ADL and IADL needs. Living and IADL's Social History Household Members none Living Arrangements House Number of Floors ( One Floor Floors) Number of Stairs To 5-6 steps with bilateral rails. Enter/Railing? Home Environment Standard Height Toilet,Tub/Shower Additional Social Pt has an adjustable trekking pole. History Comment M2 OT-IP Current Condition Start: 11/08/24 09:22 Freq: Status: Active Protocol: Document 11/08/24 09:22 [facility] (Rec: 11/08/24 09:36 [facility] Desktop) Occupational Therapy Current Condition Current Condition Evaluation Date 11/08/24 Treatment Diagnosis Pulmonary Embolism, acuter respiratory failure Diagnosis Onset Date 11/06/24 M3 OT- IP Subjective and Pain Start: 11/08/24 09:22 Freq: Status: Active Protocol: Document 11/08/24 09:22 [facility] (Rec: 11/08/24 09:36 [facility] Desktop) OT- Subjective Occupational Therapy Visit Type Type Initial Evaluation Visit Start Time 08:50 Visit Stop Time 09:20 Occupational Therapy Visit Comments Patient Comments Pt agreed to get up to use the bathroom and do oral care need Notified nursing that pt wanting pain meds and stool softener. Patient/Caregiver TO go home Goals OT Pain Assessment Pain When Pain Assessed At Rest Pain Present Pain Present Pain Reported Location Lower Back Intensity 3 Scale Used Numeric (0 - 10) M4 OT- IP ADL's Start: 11/08/24 09:22 Freq: Status: Active Protocol: Document 11/08/24 09:22 [facility] (Rec: 11/08/24 09:36 [facility] Desktop) OT [id number] General Evaluation Self-Feeding Ability Independent OT ADL-Grooming General Evaluation Grooming Ability Independent Comments OT Grooming Comments Able to do while standing at the sink. OT ADL-Oral Care General Eval Oral Care Ability Independent OT ADL-Dressing General Eval Upper Body Dressing Independent Ability OT ADL-Toileting General Evaluation Toileting Ability Standby Assistance Comments OT Toileting Distal SBA. Comments OT ADL-Bathing Comments OT Bathing Comments Best to have supervision and use of shower chair at this time. M5 OT- IP IADL's Start: 11/08/24 09:22 Freq: Status: Active Protocol: Document 11/08/24:22 [facility] (Rec: 11/08/24 09:36 [facility] Desktop) OT-Instrumental Activities of Daily Living Home Safety Awareness Ability to Problem Able to Problem Solve Solve Emergency Situations Medication Management Medication No Deficits Identified Management Money Management Money Management No Deficits Identified Meal Preparation Meal Preparation Best to have assist or use of 4ww to carry items. Comments Respiratory Equipment Assistant Respiratory Equipment Assistant Best to have assist due to decreased dynamic balance Comments and activity tolerance. M6 OT- IP Functional Cognition Start: 11/08/24 09:22 Freq: Status: Active Protocol: Document 11/08/24:22 [facility] (Rec: 11/08/24 09:36 [facility] Desktop) Cognitive Factors Limiting Selfcare Function Cognitive Ability Level of Alertness Alert Patient Orientation Age,Birthday,Month,Date,Year,Day of Week,Place, Situation Attention Span Capable of Focused Attention Ability Ability to Follow Able to Follow One Step Commands Commands Memory Description Short Term Impaired Cognitive Comments Cognitive Assessment Pt able to follow commands. Pt a little forgetful as Comments forgetting to use her trekking pole. OT- Vision and Hearing OT- Hearing Assessment OT- Hearing WFL Assessment OT- Vision Assessment Visual Acuity WFL Visual Attentiveness WFL Occular Pursuits WFL M7 OT- IP Mobility and Balance Start: 11/08/24 09:22 Freq: Status: Active Protocol: Document 11/08/24 09:22 [facility] (Rec: 11/08/24 09:36 [facility] Desktop) OT- Bed Mobility Assessment Supine to Sit Supine to Sit Assist Standby Assistance Sit to Supine Sit to Supine Assist Minimal Assistance OT-Transfer Assessment Sit to and From Stand Sit to and from Contact Guard Assistance Stand Transfers Transfer Ability Standby Assistance,Contact Guard Assistance Technique Transfer Destination Bed,Toilet Transfer Technique Stand Step Pivot Devices Transfer Assistive Gait Belt,Straight Cane Devices Comments Mobility Comments Pt needing CGA and use of surfaces for her balance. Able to use the trekking pole with SBA. Educated pt on log rolling, but pt states that the technique does not work for her. Pt pulling up into long sitting when getting up from bed. OT- Balance Assessment Sitting Balance and Reactions Static Sitting Normal Balance Ability Dynamic Sitting Good Balance Ability Standing Balance and Reactions Static Standing Good Balance Ability Dynamic Standing Fair Balance Ability M8 OT- IP Objective Assessments Start: 11/08/24 09:22 Freq: Status: Active Protocol: Document 11/08/24 09:22 [facility] (Rec: 11/08/24 09:36 [facility] Desktop) OT Gross Range of Motion Upper Extremity Range of Motion Assessment Within Functional Limits OT Strength Upper Extremity Strength Assessment Within Functional Limits M9 OT- IP Assessment and Plan Start: 11/08/24 09:22 Freq: Status: Active Protocol: Document 11/08/24 09:22 [facility] (Rec: 11/08/24 09:36 [facility] Desktop) OT Summary Assessment and Plan Potential Rehabilitation Excellent Potential Analytic Complexity Moderate at Evaluation Summary OT Impairments Pain,Balance,Functional Mobility,Dressing,Toileting, Bathing,Toilet Transfers,Shower Transfers,Activity Tolerance Progress Towards Progressing Toward Goals Goals Assessment Summary Pt MOD complexity and main barriers are steps and back pain. AT this time pt needing SUSSY to help get her legs back into bed. Pt sleeps in her Stressless recliner at home. Pt is unsteady without her trekking pole. Close SBA with trekking pole. Suggested pt get a 4ww especially helpful for IADL needs and shower chair. Pt' s daughter coming to town today and states also has a friend to be able to assist her as needed. Able to go over energy conservation information with pt. Pt to go home with assist when medically stable. Pt states would not be home bound and therefore not wanting home health. Pending how pt recovers may benefit from outpt PT for dynamic balance needs. Goals Dressing Goal Independent Toileting Goal Independent Bathing Goal Independent Toilet Transfer Goal Independent Shower Transfer Goal Independent Days to Meet Goals 5 Frequency of Treatment Other frequency 5x/week Treatment Plan OT Treatment Plan ADL Training,Functional Mobility,Patient/Family Education,Discharge Planning Other Treatment Shower Recommendations and Next Treatment Focus Discharge Recommendations OT Discharge Home with Assistance Recommendations Other Discharge Pending improvement Recommendations Home Equipment Needs Shower chair, 4ww Transportation Needs Private Vehicle at Discharge
--- NOTE | 2024-11-08 09:45 | PT.IIE ---
Surgical History (Last Reviewed 11/06/24 @ 16:02 by Sandra Camacho PA-C) History of colonoscopy Hx of bilateral cataract extraction Hx of dilation and curettage Hx of tonsillectomy Medical History (Last Reviewed 11/06/24 @ 16:02 by Sandra Camacho PA-C) Arthritis Basal cell carcinoma (Unknown) Bilateral sciatica (~04/2017) Cervical stenosis of spine Chronic obstructive pulmonary disease Essential hypertension First degree AV block Hyperlipidemia (Unknown) Osteopenia (10/2012) Pneumonia Rosacea White coat syndrome with diagnosis of hypertension Physical Therapy Inpatient Evaluation/Re-Eval M1 PT/OT-IP Prior Functional Status Start: 11/08/24 12:20 Freq: NEEDED Status: Active Protocol: Document 11/08/24 09:45 [facility] (Rec: 11/08/24 12:39 [facility] [id number]) Medical Review Prior Functional Status Medical History Yes Reviewed Communication able to make needs known Mobility and Gait pt stated that she is modified independent with all mobilities and ambulation without AD but uses a trekking pole for long distance outdoor mobility for safety Activities of Daily per OT note: Pt completely independent with all ADL and Living and IADL's IADL needs. Social History Household Members none Living Arrangements House Number of Floors ( One Floor Floors) Number of Stairs To 6 steps with bilateral rails. Enter/Railing? Home Environment Standard Height Toilet,Tub/Shower Home Equipment Hand Held Shower Additional Social pt has a trekking pole History Comment pt sleeps on a recliner chair most of the time but occasionally in her bed pt stated that she has a friend and a neighbor who can assist her if needed but cannot stay with her. M2 PT-IP Current Condition Start: 11/08/24 12:20 Freq: NEEDED Status: Active Protocol: Document 11/08/24 09:45 [facility] (Rec: 11/08/24 12:39 AB [id number]) Physical Therapy Current Condition Current Condition Evaluation Date 11/08/24 Treatment Diagnosis PE; difficulty in walking Onset Date 11/06/24 M3 PT-IP Subjective Start: 11/08/24 12:20 Freq: NEEDED Status: Active Protocol: Document 11/08/24 09:45 [facility] (Rec: 11/08/24 12:39 AB [id number]) Subjective Physical Therapy Visit Type Type Initial Evaluation Visit Start Time 09:45 Visit Stop Time 10:35 Number of LANGUAGE AND LITERATURE DIVISION CHAIR Visits 0 Physical Therapy Visit Comments Patient Comments agreeable to do PT Therapy Pain Assessment Pain When Pain Assessed During Mobility Pain Present Pain Present Pain Reported Location Lower Back Scale Used pain scale not stated Pain Behaviors Guarding,Holding Area,Wincing Pain Management Distraction,Modification of Treatment,Re-positioning, Techniques Timing of Activity with Medications M4 PT-IP Mobility and Gait Start: 11/08/24 12:20 Freq: NEEDED Status: Active Protocol: Document 11/08/24 09:45 [facility] (Rec: 11/08/24 12:39 AB [id number]) PT-Bed Mobility Assessment Rolling Type of Rolling Log Rolling Level of Assist Maximal Assistance,1 Person Assistance Supine to Sit Supine to Sit Maximum Assistance,1 Person Assistance,Bedrails PT-Transfer Assessment Sit to and From Stand Sit to and from Minimal Assistance,1 Person Assistance,Use of Upper Stand Extremities Equipment Transfer Assistive Gait Belt,Straight Cane Device Orthotic/Prosthetic No Devices or Brace: Transfers Transfer Destination Chair Transfer Technique ambulated Transfer Ability Level of Assist Contact Guard Assistance,Minimal Assistance,1 Person Assistance,Use of Upper Extremities Comments Mobility Comments pt in bed and agreed to do PT. obtained PLOB and home set up. pt stated that she feels that it is hard for her to remember. BP: 147/83 O2 sat at RA: 90-91% MI : 70 pt completed supine to sit log roll max A and max cues. O2 sat: 89-90%. sit to stand min A and ambulated in room using trekking pole CGA to min A and cues. unsteady gait with (+) LOB to the R but increase steadiness after a few feet of walking. completed ~ 40 ft. pt sat on the chair. O2 sat checked: 87% but increase to 88 % after ~ 10 sec. pt rested. o2 sat increased to 90-91% after ~ 20 sec. Assessed ambulation without AD and completed ~ 35 ft min A and cues. pt sat back on chair. O2 sat: 89-90%. informed pt regarding safety and use of AD. will assess ambulation using 4WW on next session. pt understood and agreed. pt wants to go back to bed. sit to stand from chair min A and ambulated to the bed without AD CGA to min A ~ 12 ft. log roll sit to supine max A and max cues. positioned pt on the chair. call light and table placed within reach. Gait Assessment Gait Gait Assistance Contact Guard Assist,Minimum Assistance,1 Person Assist Required: Distance (Feet) 40 Able to Maintain Yes Weight Bearing Status During Gait Assistive Devices Assistive Device None,Gait Belt,Straight Cane Orthotic/Prosthetic No Devices or Brace: Gait Deviations General Gait Pattern Antalgic,Decreased Stride Length,Decreased Feet Clearance,Wide Based Gait Factors Limiting Gait Function Factors Limiting Decreased Activity Tolerance,Decreased Strength, Gait Function Difficulty Following Directions,Limited Range of Motion ,Pain,Poor Balance,Poor Safety Awareness,Respiratory Distress PT-Balance Assessment Sitting Balance and Reactions Static Sitting Good Balance Ability Dynamic Sitting Good Balance Ability Standing Balance and Reactions Static Standing Fair Balance Ability Dynamic Standing Fair Balance Ability Device Used trekking pole M5 PT-IP Objective Assessments Start: 11/08/24 12:20 Freq: NEEDED Status: Active Protocol: Document 11/08/24 09:45 [facility] (Rec: 11/08/24 12:39 AB [id number]) Orientation Orientation/Cognition Level of Alertness Alert Orientation Name,Place,Situation Safety Awareness Decreased Safety Awareness Memory Description Short Term Impaired,Transport Medic Impaired Gross Range of Motion Lower Extremity ROM Assessment Within Functional Limits Strength Lower Extremity Strength Assessment Right Impaired Hip 3+/5 Knee 3+/5 Muscle Tone Muscle Tone WNL Yes M6 PT-IP Treatment Start: 11/08/24 12:20 Freq: NEEDED Status: Active Protocol: Document 11/08/24 09:45 [facility] (Rec: 11/08/24 12:39 AB [id number]) Physical Therapy Treatment Education Education Provided Safety M7 PT-IP Assessment and Plan Start: 11/08/24 12:20 Freq: NEEDED Status: Active Protocol: Document 11/08/24 09:45 [facility] (Rec: 11/08/24 12:39 AB [id number]) PT Summary Assessment and Plan Potential Rehabilitation Fair Potential Status of Condition Evolving at Evaluation Summary Impairments Pain,ROM,Strength,Balance,Coordination,Cognition,Bed Mobility,Transfers,Gait,Activity Tolerance Assessment Summary pt is an 84 y/o F who is admitted for PE. pt with c/o LBP. pt requiring max A for bed mobility, min A for sit to stand and CGA to min A for ambulation using trekking pole, min A without AD. O2 sat decrease to 87% at RA after ambulation. pt presents with decrease activity tolerance affecting mobility independence. d/c plan depending on progress but at this time may require SNF rehab. will continue to assess. Goals Bed Mobility Goal Standby Assistance Transfer Goal Standby Assistance,Cane,Four Wheeled Walker Gait Goal Standby Assistance,Cane,Four Wheel Walker Gait Distance 200 Other Goals improve bed mobility, transfers, ambulation using LRAD/ without AD 300 ft mod I up/down 6 steps using B rails mod I Days to Meet Goals 10 Frequency of Treatment Frequency Of Once a Day Treatment Treatment Plan Physical Therapy Bed Mobility Training,Transfer Training,Gait Training, Treatment Plan Therapeutic Exercise,Balance Retraining,Discharge Planning,Hot or Cold Pack,Neuromuscular Re-ed, Coordination Retraining Other ambulation using 4WW Recommendations and Next Treatment Focus Precautions Other Precautions O2 sat Recommendations To Nursing Amount of Assist 1 Person Assist Needed Discharge Recommendations PT Discharge Home with 27/10 Assist Available,Home Health,SNF Rehab, Recommendations Home vs SNF Transportation Needs Private Vehicle,Wheelchair/Cabulance at Discharge - PT assist 1
--- NOTE | 2024-11-08 12:15 | CM.DPC ---
DCP Cont. Reviewed EMR and team rounds for pt's medical status and updates. Per PCP, pt will need to be off O2, have a BM, and have improvement in her back pain prior to d/c. Potentially planning for d/c tomorrow, 11/09.
[2024-11-08] MEDS: OXYCODONE IR 5 MG TABLET PO (12:29)
[2024-11-08 14:00] VITALS: BP 151/73; PULSE 80; RESP 20; TEMP 36.8; O2SAT 93
--- NOTE | 2024-11-08 14:23 | DI.MRI.S_ITS ---
PROCEDURE: MR LUMBAR SPINE WO CON INDICATIONS: lumbar back pain TECHNIQUE: Noncontrast sagittal T1 spin echo and T2 fast echo, sagittal STIR, and T2 fast spin echo through the lumbar spine. In cases with scoliosis, additional coronal T2 fast spin echo may be performed. COMPARISON: [facility], MR, MR LUMBAR SPINE WO CON, 01/18/2021, 12:04. [facility], CT, CT LUMBAR SPINE WO CON, 11/06/2024, 12:52. FINDINGS: Image quality: There is artifact associated with the metallic hardware. Alignment and Curvature: [id number] levoconvex thoracolumbar scoliosis is seen. Minimal retrolisthesis can be seen at the L5-S1 level. Bone Marrow: Marrow is of normal overall signal. No acute vertebral body compression fractures. Spinal Cord: Conus medullaris terminates at the L1 level. Visualized cord demonstrates normal signal and size. Paraspinous Soft Tissues: No paravertebral masses. A water signal cysts can be seen along the anterior aspect of the right kidney. T12-L1: Normal appearance. L1-L2: Mild loss of disc height is seen. Loss of disc signal is seen. Mild generalized disc bulge is seen. Mild facet joint hypertrophy is seen. There is [id number] right-sided and no significant left-sided neural foraminal narrowing. No significant central canal narrowing is seen. There is mild progression compared to 2020. L2-L3: At least moderate loss of disc height and disc signal can be seen. Reactive marrow endplate changes are seen, which are hyperintense on T1-weighted and T2- weighted imaging and most consistent with fatty metaplasia (Modic type II changes). Moderate generalized disc bulge is seen, which is eccentric to the right. There is a superimposed central disc osteophyte protrusion. Moderate facet joint hypertrophy is seen. Associated hypertrophy of the ligamentum flavum can be seen. There is moderate left-sided neural foraminal narrowing. Moderate to severe right-sided neural foraminal narrowing is seen, with a degree of compression upon the exiting right L2 nerve root. At least moderate central canal narrowing is seen. This level is overall mildly worse than in 202. Moderate loss of disc height is seen. Loss of disc signal is seen. L3-L4: Moderate disc osteophyte complex is seen, which is eccentric to the right. Bridging endplate osteophytes can be seen, as on series 2, image 5. Moderate facet joint hypertrophy is seen. There is moderate left-sided and at least moderate right- sided neural foraminal narrowing. There is a degree of compression seen upon the exiting right L3 nerve root. Moderate central canal narrowing is seen. The degree of central canal narrowing is improved compared to 2021. L4-L5: Postoperative changes are seen at this level, with bilateral pedicle screws, vertical fixation rods, and a disc spacer. Moderate disc bulge is seen, which is eccentric to the right. Moderate facet joint hypertrophy is seen. Moderate bilateral neural foraminal narrowing is seen. Mild to moderate central canal narrowing is seen. When comparison is made with the prior images, these findings are similar. L5-S1: Moderate loss of disc height is seen. Loss of disc signal is seen. Reactive marrow endplate changes are seen, which are hyperintense on T1-weighted and T2- weighted imaging and most consistent with fatty metaplasia (Modic type II changes). Moderate generalized disc bulge is seen. There is a superimposed central disc osteophyte protrusion. Moderate facet joint hypertrophy is seen. There is moderate to severe bilateral neural foraminal narrowing seen, with an associated degree of compression seen upon the exiting nerve roots. Mild to moderate central canal narrowing is seen. When comparison is made with the prior images, these findings are similar. S1-S2: There is a transitional, rudimentary disc present. 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 However, the degree of central canal narrowing is improved at L3-L4 compared to 2021. Postoperative hardware is seen at L4-L5. Dictated by: Elijah Borja M.D. on 11/08/2024 at 15:56 Approved by: Elijah Borja M.D. on 11/08/2024 at 16:03
[2024-11-08 19:00] VITALS: BP 165/82; PULSE 89; RESP 16; TEMP 36.4; O2SAT 93
[2024-11-09 08:00] VITALS: BP 167/85; PULSE 81; RESP 19; TEMP 36.8; O2SAT 93
[2024-11-09] MEDS: ACETAMINOPHEN 325 MG TABLET 650 MG PO ×2 (08:11→23:30)
[2024-11-09] MEDS: BACLOFEN 10 MG TABLET PO ×3 (08:12→20:40)
[2024-11-09] MEDS: APIXABAN 5 MG TABLET 10 MG PO ×2 (08:14→20:40)
[2024-11-09] MEDS: CHLORTHALIDONE 25 MG TABLET PO (08:14)
[2024-11-09] MEDS: FELODIPINE 5 MG 5 EACH PO (08:14)
[2024-11-09] MEDS: SODIUM CHLORIDE 0.9% FLUSH 10 ML IV ×3 (08:20→20:41)
[2024-11-09] MEDS: HYDROCODONE/ACET 5/325 TABLET 1 TAB PO (08:41)
--- NOTE | 2024-11-09 09:45 | OT.IP.TRT ---
Current Diagnoses Other pulmonary embolism without acute cor pulmonale (11/06/24) Occupational Therapy Treatment Note M2 OT-IP Current Condition Start: 11/08/24 09:22 Freq: Status: Active Protocol: Document 11/08/24 09:22 [facility] (Rec: 11/08/24 09:36 [facility] Desktop) Occupational Therapy Current Condition Current Condition Evaluation Date 11/08/24 Treatment Diagnosis Pulmonary Embolism, acuter respiratory ffailure Diagnosis Onset Date 11/06/24 M3 OT- IP Subjective and Pain Start: 11/08/24 09:22 Freq: Status: Active Protocol: Document 11/09/24 10:10 [facility] (Rec: 11/09/24 10:22 [facility] Desktop) OT- Subjective Occupational Therapy Visit Type Type Treatment Note Visit Start Time 09:20 Visit Stop Time 09:45 Occupational Therapy Visit Comments Patient Comments Pt agreed to get up to do oral care and grooming needs at the sink. Patient/Caregiver To go home. Goals OT Pain Assessment Pain When Pain Assessed During Mobility Pain Present Pain Present Pain Reported Location Lower Back Pain Behaviors Facial Grimacing,Holding Area M4 OT- IP ADL's Start: 11/08/24 09:22 Freq: Status: Active Protocol: Document 11/09/24 10:10 [facility] (Rec: 11/09/24 10:22 [facility] Desktop) OT [id number] General Evaluation Self-Feeding Ability Independent OT ADL-Grooming General Evaluation Grooming Ability Independent Comments OT Grooming Comments Able to do while standing at the sink. OT ADL-Oral Care General Eval Oral Care Ability Independent OT ADL-Toileting Comments OT Toileting Pt states did go earlier. Comments OT ADL-Bathing Comments OT Bathing Comments Best to have supervision and use of shower chair at this time. M5 OT- IP IADL's Start: 11/08/24 09:22 Freq: Status: Active Protocol: Document 11/08/24 09:22 [facility] (Rec: 11/08/24 09:36 [facility] Desktop) OT-Instrumental Activities of Daily Living Home Safety Awareness Ability to Problem Able to Problem Solve Solve Emergency Situations Medication Management Medication No Deficits Identified Management Money Management Money Management No Deficits Identified Meal Preparation Meal Preparation Best to have assist or use of 4ww to carry items. Comments Automatic Pinsetter Mechanic Automatic Pinsetter Mechanic Best to have assist due to decreased dynamic balance Comments and activity tolerance. M6 OT- IP Functional Cognition Start: 11/08/24 09:22 Freq: Status: Active Protocol: Document 11/09/24 10:10 [facility] (Rec: 11/09/24 10:22 [facility] Desktop) Cognitive Factors Limiting Selfcare Function Cognitive Ability Level of Alertness Alert Patient Orientation Age,Birthday,Month,Date,Year,Place,Situation Attention Span Capable of Focused Attention,Capable of Sustained Ability Attention Ability to Follow Able to Follow One Step Commands Commands Memory Description Short Term Impaired Cognitive Tests SLUMS Pt scored 20/30 which implies borderline dementia versus mild neurocognitive disorder. Pt states did not sleep last night and probably more likely mild neurocognitive disorder. Pt thought it was Thursday versus Thursday, not able to subtract 100-23, able to recall 10 animals in one minute, able to recall 1/5 words after time passed, and not able to draw the hour hands correctly on the clock after time given. Cognitive Comments Cognitive Assessment Pt able to answer all home safety questions accurately. Comments Pt a little slow to respond to questions today. Pt feels that she is not at her baseline cognitively as did not sleep last night per pt. M7 OT- IP Mobility and Balance Start: 11/08/24 09:22 Freq: Status: Active Protocol: Document 11/09/24 10:10 [facility] (Rec: 11/09/24 10:22 [facility] Desktop) OT- Bed Mobility Assessment Supine to Sit Supine to Sit Assist Standby Assistance Sit to Supine Sit to Supine Assist Standby Assistance OT-Transfer Assessment Sit to and From Stand Sit to and from Standby Assistance Stand Transfers Transfer Ability Standby Assistance Technique Transfer Destination Bed Devices Transfer Assistive Gait Belt,4 Wheeled Walker Devices Comments Mobility Comments Able to try 4ww and will be helpful for ADL and IADL needs. In addition a place to sit when she tires. Pt needing education how to use the 4ww. Pt will benefit from more practice. OT- Balance Assessment Sitting Balance and Reactions Static Sitting Normal Balance Ability Dynamic Sitting Good Balance Ability Standing Balance and Reactions Static Standing Good Balance Ability Dynamic Standing Good Balance Ability Comments Other Balance Tests/ Pt able to move better with her balance with 4ww today. Deviations/Treatment : M8 OT- IP Objective Assessments Start: 11/08/24 09:22 Freq: Status: Active Protocol: Document 11/08/24 09:22 [facility] (Rec: 11/08/24 09:36 [facility] Desktop) OT Gross Range of Motion Upper Extremity Range of Motion Assessment Within Functional Limits OT Strength Upper Extremity Strength Assessment Within Functional Limits M9 OT- IP Assessment and Plan Start: 11/08/24 09:22 Freq: Status: Active Protocol: Document 11/09/24 10:10 [facility] (Rec: 11/09/24 10:22 [facility] Desktop) OT Summary Assessment and Plan Potential Rehabilitation Excellent Potential Analytic Complexity Moderate at Evaluation Summary OT Impairments Pain,Balance,Functional Mobility,Dressing,Toileting, Bathing,Toilet Transfers,Shower Transfers,Activity Tolerance Progress Towards Progressing Toward Goals Goals Assessment Summary Pt able to move better with 4ww today during trial and suggested to get one. Pt not thinking clearly today and a little delayed with her responses to questions , however pt states did not sleep last night. Pt scored 20/30 on the SLUMS and best to reassess again when able to sleep better. Pt to go home with 24/7 assist when medically stable. Goals Dressing Goal Independent Toileting Goal Independent Bathing Goal Independent Toilet Transfer Goal Independent Shower Transfer Goal Independent Days to Meet Goals 4 Frequency of Treatment Other frequency 5x/week Treatment Plan OT Treatment Plan ADL Training,Functional Mobility,Patient/Family Education,Discharge Planning Other Treatment Shower Recommendations and Next Treatment Focus Discharge Recommendations OT Discharge Home with Assistance Recommendations Home Equipment Needs Shower chair, 4ww Transportation Needs Private Vehicle at Discharge
--- NOTE | 2024-11-09 10:35 | PT.IPTN ---
Current Diagnoses Other pulmonary embolism without acute cor pulmonale (11/06/24) Physical Therapy Treatment Note M2 PT-IP Current Condition Start: 11/08/24 12:20 Freq: NEEDED Status: Active Protocol: Document 11/08/24 09:45 AB (Rec: 11/08/24 12:39 AB [id number]) Physical Therapy Current Condition Current Condition Evaluation Date 11/08/24 Treatment Diagnosis PE; difficulty in walking Onset Date 11/06/24 M3 PT-IP Subjective Start: 11/08/24 12:20 Freq: NEEDED Status: Active Protocol: Document 11/09/24 10:35 AB (Rec: 11/09/24 11:27 AB [id number]) Subjective Physical Therapy Visit Type Type Treatment Note Visit Start Time 10:35 Visit Stop Time 11:05 Number of AITCHBONE BREAKER Visits 0 Physical Therapy Visit Comments Patient Comments agreed to do PT M4 PT-IP Mobility and Gait Start: 11/08/24 12:20 Freq: NEEDED Status: Active Protocol: Document 11/09/24 10:35 AB (Rec: 11/09/24 11:27 AB [id number]) PT-Bed Mobility Assessment Supine to Sit Supine to Sit Maximum Assistance,1 Person Assistance,Head of Bed Elevated,Bedrails Sit to Supine Sit to Supine Minimal Assistance,1 Person Assistance,Bedrails PT-Transfer Assessment Sit to and From Stand Sit to and from Contact Guard Assistance,1 Person Assistance,Use of Stand Upper Extremities Equipment Transfer Assistive Gait Belt,4 Wheeled Walker Device Orthotic/Prosthetic No Devices or Brace: Comments Mobility Comments pt in bed and agreed to do PT. pt stated that she feels confused and brain is foggy. completed supine to sit max A and cues. BP checked: 117/75. O2 sat: 92% educated on use of 4WW, locking/unlocking brakes. pt completed sit to stand CGA and ambulated in the hallway ~ 225 ft using 4WW SBA to occasional CGA and cues for safety. pt ambulated back to her room and wants to go back in bed. log roll sit to supine max A and max cues. positioned pt in opal. call light and table placed within reach. pt's daughter arrived and informed pt's mobility. informed about getting a 4WW for pt to use. daughter also confirmed that she will be staying with pt for a few days to assist her. informed nurse regarding pt's increase confusion. Gait Assessment Gait Gait Assistance Standby Assistance,Contact Guard Assist,1 Person Assist Required: Distance (Feet) 225 Able to Maintain Yes Weight Bearing Status During Gait Assistive Devices Assistive Device Gait Belt,4 Wheeled Walker Orthotic/Prosthetic No Devices or Brace: Factors Limiting Gait Function Factors Limiting Decreased Activity Tolerance,Decreased Strength, Gait Function Difficulty Following Directions,Poor Safety Awareness M5 PT-IP Objective Assessments Start: 11/08/24 12:20 Freq: NEEDED Status: Active Protocol: Document 11/08/24 09:45 AB (Rec: 11/08/24 12:39 AB [id number]) Orientation Orientation/Cognition Level of Alertness Alert Orientation Name,Place,Situation Safety Awareness Decreased Safety Awareness Memory Description Short Term Impaired,Supervisor Aircraft Cleaning Impaired Gross Range of Motion Lower Extremity ROM Assessment Within Functional Limits Strength Lower Extremity Strength Assessment Right Impaired Hip 3+/5 Knee 3+/5 Muscle Tone Muscle Tone WNL Yes M6 PT-IP Treatment Start: 11/08/24 12:20 Freq: NEEDED Status: Active Protocol: Document 11/09/24 10:35 AB (Rec: 11/09/24 11:27 AB [id number]) Physical Therapy Treatment Education Education Provided Safety M7 PT-IP Assessment and Plan Start: 11/08/24 12:20 Freq: NEEDED Status: Active Protocol: Document 11/09/24 10:35 AB (Rec: 11/09/24 11:27 AB [id number]) PT Summary Assessment and Plan Potential Rehabilitation Good Potential Summary Impairments Strength,Balance,Cognition,Bed Mobility,Transfers,Gait, Activity Tolerance Progress Towards Slow Progress - Other Goals Assessment Summary pt able to ambulate using 4WW ~ 225 ft SBA to CGA. pt with more confusion today and pt stated that she feels brain fogginess. nurse aware. pt plans to go home and her daughter will stay with her for a few days to assist her. Goals Bed Mobility Goal Standby Assistance Transfer Goal Standby Assistance,Cane,Four Wheeled Walker Gait Goal Standby Assistance,Cane,Four Wheel Walker Gait Distance 200 Other Goals improve bed mobility, transfers, ambulation using LRAD/ without AD 300 ft mod I up/down 6 steps using B rails mod I Days to Meet Goals 10 Frequency of Treatment Frequency Of Once a Day Treatment Treatment Plan Physical Therapy Bed Mobility Training,Transfer Training,Gait Training, Treatment Plan Therapeutic Exercise,Balance Retraining,Discharge Planning,Hot or Cold Pack,Neuromuscular Re-ed, Coordination Retraining Other stair climbing Recommendations and Next Treatment Focus Recommendations To Nursing Amount of Assist 1 Person Assist Needed Discharge Recommendations PT Discharge Home with Assistance,Home Health,Outpatient PT Recommendations Transportation Needs Private Vehicle,Wheelchair/Cabulance at Discharge - PT assist 1
[2024-11-09 16:00] VITALS: BP 127/75; PULSE 82; RESP 16; TEMP 37; O2SAT 94
--- NOTE | 2024-11-09 17:32 | P.PN_ITS ---
Subjective Subjective Interval history: The pt this morning reports a significant increase in her back pain again. She feels it is from the bed. She denies any SOB, chest pain. She continues to deny and radiculopathy. Exam Vital Signs (past 8 hours): - 11/09/24 16:00 Temperature 98.6 F Pulse Rate 82 Respiratory Rate 16 Blood Pressure 127/75 Pulse Oximetry 94 Oxygen Delivery Method Nasal Cannula Oxygen Flow Rate 0 Narrative Exam Narrative: Gen: NAD, sitting in bed, appears comfortable CV: RRR, no murmurs Resp: clear to auscultation bilaterally, no wheezes or crackles Abd: soft, nontender, nondistended Back: no acute tenderness today Ext: no edema Objective Labs 11/08/24 05:30 11/06/24 18:17 [facility] Medical History Cervical stenosis of spine White coat syndrome with diagnosis of hypertension First degree AV block Arthritis Pneumonia Basal cell carcinoma (Unknown) Osteopenia (10/2012) Bilateral sciatica (~04/2017) Hyperlipidemia (Unknown) Chronic obstructive pulmonary disease Essential hypertension Rosacea Surgical History Hx of dilation and curettage History of colonoscopy Hx of bilateral cataract extraction Hx of tonsillectomy Social History household members: none Smoking Status: Never smoker Tobacco: How many years used: 5 (5 years or so.) second hand exposure: Yes (when I was a child my parents smoked all the time.) alcohol intake: current substance use type: does not use Assessment & Plan Assessment & Plan narrative: Pt is a 84yo woman with HTN, COPD, hyperlipidemia, and hx of prior lumbar back surgery who presented with acute onset of severe low back pain. Then found to have pulmonary embolism on CT PE when became hypoxic. 1) Pulmonary embolism: Unprovoked, no hx of blood clots. Echo normal. - Continue Eliquis 10mg BID, plan to continue anticoagulation for 3 months 2) Acute respiratory failure: Resolved 3) Acute low back pain: CT without acute findings. MRI with chronic changes, some worsening arthritic breakdown - Transition to Hydrocodone-Acetaminophen for pain control, oxycodone sedating - Baclofen for pain relief - Tylenol PRN - Cannot use NSAIDs due to Heparin unfortunately - Continue work with PT/OT 4) HTN: Elevated, likely due to the pain - Continue home medications FEN: General diet Code: Full DVT ppx: Heparin as above Dispo: Plan for d/c tomorrow with home health Time-Based Coding :: [TOTAL MINUTES] spent with patient and on the chart (including review of chart, obtaining history, exam, reviewing outside data, placing orders, documenting exam and treatment plan, and counseling patient) on [DATE]. Quality VTE Deep Vein Thrombosis/Pulmonary Embolism Present on Admission: Yes [employer] Document charge(s): Yes Charge Codes Subsequent inpatient/observation care: [id number]
[2024-11-09 20:40] VITALS: BP 129/65; PULSE 78; RESP 16; TEMP 36.7; O2SAT 94
[2024-11-09] MEDS: OXYCODONE IR 5 MG TABLET PO (23:30)
[2024-11-10 06:06] VITALS: BP 133/80; PULSE 71; RESP 16; TEMP 36.1; O2SAT 96
--- NOTE | 2024-11-10 08:10 | DI.RAD.S_ITS ---
PROCEDURE: XR CHEST 1V INDICATIONS: dyspnea TECHNIQUE: One view of the chest was acquired. COMPARISON: [facility], CR, XR CHEST 2V, 08/04/2024, 14:55. FINDINGS: Mild bilateral perihilar and lower lobe peribronchial thickening, some of which may be related expiratory result with bibasilar subsegmental atelectasis left greater than right; however, bronchitis, viral infection, asthma or other process should be considered. Mild calcifications of the aortic arch unchanged. Moderate degenerative changes of the thoracic spine and shoulders with dextroscoliosis unchanged. No pneumothorax, no pleural effusion. Cardiopericardial silhouette and pulmonary vasculature within normal limits. IMPRESSION: Mild peribronchial thickening as discussed above. If symptoms persist or worsen, or there is high clinical suspicion of thoracic abnormality, CT chest could be performed. Dictated by: Justin Moraes M.D. on 11/10/2024 at 8:36 Approved by: Justin Moraes M.D. on 11/10/2024 at 8:41
--- NOTE | 2024-11-10 08:10 | EKG_ITS ---
[place] [address] [address] [place] [id number] Test Date: 2024-11-10 Pat Name: Leigh Nj Department: [facility] Room: 205 Gender: Female Asphalt Spreader: MARVIN : 1940 Requested By: Order Number: [id number] Reading MD: Jono Suggs MD Measurements Intervals [place] Rate: 71 P: 76 MO: 188 QRS: 32 QRSD: 74 T: -1 QT: 382 QTc: 415 Interpretive Statements Normal sinus rhythm T wave abnormality, consider lateral ischemia Electronically Signed On 11-10-2024 10:25:51 PDT by Jono Suggs MD
--- NOTE | 2024-11-10 08:26 | P.PN_ITS ---
Subjective Subjective Date Patient Seen: 11/10/24 Time Patient Seen: 08:26 Interval history: Patient seen in Dr. Tabor's absence today. Plan had been for her to be discharged home. She was admitted with low back pain also found to have pulmonary embolism This morning though she reports increased difficulty breathing. She says when she woke up she felt like she could not take a deep breath. Has difficulty describing her symptoms exactly is not been coughing he has had no chest pain or discomfort no sense of palpitations. O2 saturation as we speak is 98% on room air, blood pressure in the 140s over 70s. She is not appear to be in any real distress whatsoever. She discount any issues with her back since she was up with PT yesterday and her back felt like it is doing what it often does and is not necessarily concerning but she is concerned about going home with this new breathing difficulty She does report having shortness of breath with any activity at home prior to coming to the hospital, and was found to be hypoxic upon admission which is how the PE was considered a possibility and discovered She has been anticoagulated since admission initially with unfractionated heparin drip then with Eliquis. As noted previously, her respiratory symptoms seem to be improved although not apparently this morning Exam Vital Signs (past 8 hours): - 11/10/24 06:06 Temperature 96.9 F L Pulse Rate 71 Respiratory Rate 16 Blood Pressure 133/80 Pulse Oximetry 96 Oxygen Flow Rate 0 Oxygen Delivery Method Room Air Oxygen Flow Rate 0 Narrative Exam Narrative: Elderly female in no obvious distress whatsoever speaking in full sentences with no difficulty no obvious difficulty breathing lying in her hospital bed HEENT-unremarkable Lungs-excellent breath sounds no wheezes no crackles no reported pain with deep inspiration Heart-regular rate and rhythm no murmur Abdomen-benign, positive bowel tones soft nontender nondistended Objective Labs 11/08/24 05:30 11/06/24 18:17 [facility] Medical History Cervical stenosis of spine White coat syndrome with diagnosis of hypertension First degree AV block Arthritis Pneumonia Basal cell carcinoma (Unknown) Osteopenia (10/2012) Bilateral sciatica (~04/2017) Hyperlipidemia (Unknown) Chronic obstructive pulmonary disease Essential hypertension Rosacea Surgical History Hx of dilation and curettage History of colonoscopy Hx of bilateral cataract extraction Hx of tonsillectomy Social History household members: none Smoking Status: Never smoker Tobacco: How many years used: 5 (5 years or so.) second hand exposure: Yes (when I was a child my parents smoked all the time.) alcohol intake: current substance use type: does not use Assessment & Plan Assessment & Plan narrative: 1. Dyspnea-patient with normal oxygen saturation on room air normal vital signs seems unlikely to me that this is related to her pulmonary embolism, especially without there being any pain or discomfort. I am going to go ahead and repeat chest x-ray obtain a 12 lead ECG some lab work including troponin looking for some etiology that the dyspnea could be a marker for 2. Pulmonary embolism-continue Eliquis for now. If there is hypoxia further evidence embolism causing her symptoms could consider switching to low-molecular weight heparin, but do not believe that is necessary at this time given normal vital signs and lack of symptoms as above 3. Acute low back pain-continue with current treatments including the hydrocodone. Patient is uncertain as to whether that made any difference verses the oxycodone she was taking before. She is not overly concerned about her back actually sounds like this has been a long-term problem for her 4. Hypertension-adequately although not perfectly controlled for now. No change in treatment plan Overall patient is not ready for discharge today with the new symptom of the sense of breathlessness. Investigation undergoing as above Time-Based Coding :: [TOTAL MINUTES] spent with patient and on the chart (including review of chart, obtaining history, exam, reviewing outside data, placing orders, documenting exam and treatment plan, and counseling patient) on [DATE]. Quality VTE Deep Vein Thrombosis/Pulmonary Embolism Present on Admission: Yes PROFEE [employer] Document charge(s): Yes Charge Codes Subsequent inpatient/observation care: [id number]
[2024-11-10 08:45] VITALS: BP 174/87; PULSE 67; RESP 18; TEMP 36.4; O2SAT 95
[2024-11-10] MEDS: FELODIPINE 5 MG 5 EACH PO (08:54)
[2024-11-10] MEDS: HYDROCODONE/ACET 5/325 TABLET 1 TAB PO (08:55)
[2024-11-10] MEDS: BACLOFEN 10 MG TABLET PO ×3 (08:55→20:53)
[2024-11-10] MEDS: APIXABAN 5 MG TABLET 10 MG PO ×2 (08:55→20:53)
[2024-11-10] MEDS: CHLORTHALIDONE 25 MG TABLET PO (08:55)
[2024-11-10 09:02] LABS: Add Manual Diff / Slide Review NO; Hematocrit 40.9 % (36-46); Hemoglobin 14.3 g/dL (12.0-16.0); Lymphocytes Absolute Auto 1300 /uL (1100-4500); Mean Corpuscular HGB Conc 34.9 % (30-36); Mean Corpuscular Hemoglobin 36.0 PG (26-34); Mean Corpuscular Volume 102.9 fL (80-100); Platelet Count 204 X10^3/uL (150-400)
[2024-11-10] MEDS: SODIUM CHLORIDE 0.9% FLUSH 10 ML IV ×2 (09:14→20:54)
[2024-11-10 09:21] LABS: Alanine Aminotransferase 50 IU/L (<35); Albumin 4.3 g/dL (3.5-5.0); Albumin Globulin Ratio 1.3 (1.0-2.8); Alkaline Phosphatase 58 U/L (38-126); Blood Urea Nitrogen 19 mg/dL (7-17); Calcium 10.6 mg/dL (8.4-10.2); Carbon Dioxide 28 mmol/L (22-32); Chloride 97 mmol/L (98-107); Creatine Kinase 38 U/L (30-135); Estimated Glomerular Filt Rate > 60 mL/min (>60); Globulin 3.4 g/dL (1.7-4.1); Glucose 128 mg/dL (70-99); Potassium 3.4 mmol/L (3.4-5.1); Sodium 136 mmol/L (137-145); Total Protein 7.7 g/dL (6.3-8.2)
[2024-11-10 09:23] LABS: HEMOLYSIS 81 (0-50)
[2024-11-10 09:32] LABS: Troponin I < 0.012 ng/mL (0.01-0.034)
[2024-11-10] MEDS: POTASSIUM CHLORIDE 20 MEQ TAB 40 MEQ PO (10:45)
--- NOTE | 2024-11-10 10:45 | PT.IPTN ---
Current Diagnoses Other pulmonary embolism without acute cor pulmonale (11/06/24) Physical Therapy Treatment Note M2 PT-IP Current Condition Start: 11/08/24 12:20 Freq: NEEDED Status: Active Protocol: Document 11/08/24 09:45 AB (Rec: 11/08/24 12:39 AB [id number]) Physical Therapy Current Condition Current Condition Evaluation Date 11/08/24 Treatment Diagnosis PE; difficulty in walking Onset Date 11/06/24 M3 PT-IP Subjective Start: 11/08/24 12:20 Freq: NEEDED Status: Active Protocol: Document 11/10/24 10:11 MB (Rec: 11/10/24 10:45 MB Desktop) Subjective Physical Therapy Visit Type Type Treatment Note Visit Start Time 10:11 Visit Stop Time 10:34 Number of BUSINESS PROJECT MANAGER Visits 0 Physical Therapy Visit Comments Patient Comments Pt c/o right hip pain and points to SI area. She denies injury. She is agreeable to PT. She is on RA and not dyspneic with activity. She states several times that she does not want to go home today. Therapy Pain Assessment Location Right hip/SI area Scale Used Not rated M4 PT-IP Mobility and Gait Start: 11/08/24 12:20 Freq: NEEDED Status: Active Protocol: Document 11/10/24 10:11 MB (Rec: 11/10/24 10:45 MB Desktop) PT-Bed Mobility Assessment Supine to Sit Supine to Sit Standby Assistance,Head of Bed Elevated,Bedrails Scooting Scooting to Edge of Standby Assistance Bed PT-Transfer Assessment Sit to and From Stand Sit to and from Standby Assistance,1 Person Assistance,Use of Upper Stand Extremities Equipment Transfer Assistive Gait Belt,4 Wheeled Walker Device Orthotic/Prosthetic No Devices or Brace: Transfers Transfer Destination Chair Transfer Technique Ambulation Transfer Ability Level of Assist Standby Assistance,1 Person Assistance,Use of Upper Extremities Comments Mobility Comments Cues for locking and unlocking rollator, reaching back for the chair to sit and pushing up from the bed to stand Practiced STS from locked rollator in the hallway with front of rollator against the wall x2. Pt requires cues for locking and unlocking rollator. Ed pt on the benefits of rollator at home to use in and out of doors . O2 sats on RA after gait are 94% and BP in LUE is 154 /77. Gait Assessment Gait Gait Assistance Standby Assistance,1 Person Assist Required: Distance (Feet) 100 Assistive Devices Assistive Device Gait Belt,4 Wheeled Walker Orthotic/Prosthetic No Devices or Brace: Gait Deviations General Gait Pattern Flexed Trunk Factors Limiting Gait Function Factors Limiting Poor Safety Awareness Gait Function Comments Gait Comments 100'x2 Stair Climbing Assessment Evaluation Level of Assist On Standby Assistance Stairs Devices Stair Climbing Left Railing,Right Railing Assistive Devices Technique/Endurance Stair Climbing Ascend and Descend Direction Stair Climbing Step Over Step Technique Number of Steps 3 Climbed Stair Climbing Set # 1 Repetitions (reps) Comments Stair Climbing No trouble with stair mobility today Comments PT-Balance Assessment Sitting Balance and Reactions Static Sitting Normal Balance Ability Dynamic Sitting Good Balance Ability Standing Balance and Reactions Static Standing Good Balance Ability Dynamic Standing Good Balance Ability Device Used Rollator M5 PT-IP Objective Assessments Start: 11/08/24 12:20 Freq: NEEDED Status: Active Protocol: Document 11/08/24 09:45 AB (Rec: 11/08/24 12:39 AB [id number]) Orientation Orientation/Cognition Level of Alertness Alert Orientation Name,Place,Situation Safety Awareness Decreased Safety Awareness Memory Description Short Term Impaired,Chyron Operator Impaired Gross Range of Motion Lower Extremity ROM Assessment Within Functional Limits Strength Lower Extremity Strength Assessment Right Impaired Hip 3+/5 Knee 3+/5 Muscle Tone Muscle Tone WNL Yes M6 PT-IP Treatment Start: 11/08/24 12:20 Freq: NEEDED Status: Active Protocol: Document 11/10/24 10:11 MB (Rec: 11/10/24 10:45 MB Desktop) Physical Therapy Treatment Education Education Provided Safety Other Treatments Other Treatment See education about benefits and use of rollator Performed Pt with some cognitive trouble today M7 PT-IP Assessment and Plan Start: 11/08/24 12:20 Freq: NEEDED Status: Active Protocol: Document 11/10/24 10:11 MB (Rec: 11/10/24 10:45 MB Desktop) PT Summary Assessment and Plan Potential Rehabilitation Good Potential Status of Condition Evolving at Evaluation Summary Impairments Balance,Cognition,Bed Mobility,Transfers,Gait Progress Towards Progressing Toward Goals Goals Assessment Summary O2 sats 94% on RA today and progressed with transfers and gait with rollator as well as stair training. Recommend rollator for home use and pt to call daughter Brooke, who is staying with her to garbage pick up worker at [employer]. Pt with some cognitive challenges today. Recommend assistance at home at d/c. Goals Bed Mobility Goal Independent Transfer Goal Independent,Four Wheeled Walker Gait Goal Independent,Four Wheel Walker Gait Distance 200 Other Goals Pt will ascend and descend 5 steps with B rails and no more than superv assistance to allow safe home entrance . Days to Meet Goals 5 Frequency of Treatment Frequency Of Once a Day Treatment Treatment Plan Physical Therapy Bed Mobility Training,Transfer Training,Gait Training, Treatment Plan Therapeutic Exercise,Balance Retraining,Discharge Planning Recommendations To Nursing Amount of Assist 1 Person Assist Needed Discharge Recommendations PT Discharge Home with 27/10 Assist Available,Outpatient PT Recommendations Transportation Needs Private Vehicle at Discharge - PT assist x1
--- NOTE | 2024-11-10 10:53 | OT.IP.TRT ---
Current Diagnoses Other pulmonary embolism without acute cor pulmonale (11/06/24) Occupational Therapy Treatment Note M2 OT-IP Current Condition Start: 11/08/24 09:22 Freq: Status: Active Protocol: Document 11/08/24 09:22 [facility] (Rec: 11/08/24 09:36 [facility] Desktop) Occupational Therapy Current Condition Current Condition Evaluation Date 11/08/24 Treatment Diagnosis Pulmonary Embolism, acuter respiratory failure Diagnosis Onset Date 11/06/24 M3 OT- IP Subjective and Pain Start: 11/08/24 09:22 Freq: Status: Active Protocol: Document 11/10/24 10:57 [facility] (Rec: 11/10/24 11:06 [facility] Desktop) OT- Subjective Occupational Therapy Visit Type Type Treatment Note Visit Start Time 10:15 Visit Stop Time 10:53 Occupational Therapy Visit Comments Patient Comments Pt agreed to get up to practice the 4ww and talk about equipment needs. Patient/Caregiver Pt insistent that she does not want to go home yet. Goals OT Pain Assessment Pain When Pain Assessed At Rest Pain Present Pain Present Pain Reported Location Right hip/SI area Intensity 8 Scale Used Numeric (0 - 10) M4 OT- IP ADL's Start: 11/08/24 09:22 Freq: Status: Active Protocol: Document 11/10/24 10:57 [facility] (Rec: 11/10/24 11:06 [facility] Desktop) OT [id number] General Evaluation Self-Feeding Ability Independent OT ADL-Grooming Comments OT Grooming Comments Not performed. OT ADL-Oral Care Comments Oral Care Comments Not performed. M5 OT- IP IADL's Start: 11/08/24 09:22 Freq: Status: Active Protocol: Document 11/08/24 09:22 [facility] (Rec: 11/08/24 09:36 [facility] Desktop) OT-Instrumental Activities of Daily Living Home Safety Awareness Ability to Problem Able to Problem Solve Solve Emergency Situations Medication Management Medication No Deficits Identified Management Money Management Money Management No Deficits Identified Meal Preparation Meal Preparation Best to have assist or use of 4ww to carry items. Comments Steamer Gum Candy Steamer Gum Candy Best to have assist due to decreased dynamic balance Comments and activity tolerance. M6 OT- IP Functional Cognition Start: 11/08/24 09:22 Freq: Status: Active Protocol: Document 11/10/24 10:57 [facility] (Rec: 11/10/24 11:06 [facility] Desktop) Cognitive Factors Limiting Selfcare Function Cognitive Ability Level of Alertness Alert,Confusional State Attention Span Capable of Focused Attention,Unable to Sustain Ability Attention Memory Description Short Term Impaired Cognitive Comments Cognitive Assessment Pt having worsening of short term memory and not able Comments to recall just taking a walk in the [address], not knowing remembering any safety cues for 4ww and hand placements when coming to stand and sitting down. Pt able to call pt's daughter and she states pt prior decreased STM, but much worse when on pain medications. Suggested pt get a fww just in case her memory causes her not to recall to lock the 4ww, 4ww, and also a bedside commode. M7 OT- IP Mobility and Balance Start: 11/08/24 09:22 Freq: Status: Active Protocol: Document 11/10/24 10:57 [facility] (Rec: 11/10/24 11:06 [facility] Desktop) OT- Bed Mobility Assessment Supine to Sit Supine to Sit Assist Standby Assistance Sit to Supine Sit to Supine Assist Standby Assistance OT-Transfer Assessment Sit to and From Stand Sit to and from Standby Assistance Stand Transfers Transfer Ability Standby Assistance Technique Transfer Destination Bed,Chair Devices Transfer Assistive Gait Belt,4 Wheeled Walker Devices Comments Mobility Comments Able to practice safety of 4ww and needing MAX vc to recall how to lock and unlock and brakes and hand placement for needs. OT- Balance Assessment Sitting Balance and Reactions Static Sitting Normal Balance Ability Dynamic Sitting Good Balance Ability Standing Balance and Reactions Static Standing Good Balance Ability Dynamic Standing Good Balance Ability M8 OT- IP Objective Assessments Start: 11/08/24 09:22 Freq: Status: Active Protocol: Document 11/08/24 09:22 [facility] (Rec: 11/08/24 09:36 [facility] Desktop) OT Gross Range of Motion Upper Extremity Range of Motion Assessment Within Functional Limits OT Strength Upper Extremity Strength Assessment Within Functional Limits M9 OT- IP Assessment and Plan Start: 11/08/24 09:22 Freq: Status: Active Protocol: Document 11/10/24 10:57 [facility] (Rec: 11/10/24 11:06 [facility] Desktop) OT Summary Assessment and Plan Potential Rehabilitation Good Potential Analytic Complexity Moderate at Evaluation Summary OT Impairments Pain,Balance,Functional Mobility,Dressing,Toileting, Bathing,Toilet Transfers,Shower Transfers,Activity Tolerance Progress Towards Progressing Toward Goals,Slow Progress due to Cognition Goals Assessment Summary Pt noted much worse with her STM and did not remember that she just walking the hallway, recall nurse just gave her potassium to drink, and needing MAX a for safety awareness. Pt will need 24/7 assist when medically stable and benefit from home health. Goals Dressing Goal Independent Toileting Goal Independent Bathing Goal Independent Toilet Transfer Goal Independent Shower Transfer Goal Independent Days to Meet Goals 4 Frequency of Treatment Other frequency 5x/week Treatment Plan OT Treatment Plan ADL Training,Functional Mobility,Patient/Family Education,Discharge Planning Other Treatment SHower Recommendations and Next Treatment Focus Discharge Recommendations OT Discharge Home with 24/7 Assist Available,Home Health Recommendations Home Equipment Needs Shower chair,4ww, fww, BSC Transportation Needs Private Vehicle at Discharge
[2024-11-10 14:00] VITALS: BP 118/81; PULSE 82; RESP 16; TEMP 36.8; O2SAT 93
--- NOTE | 2024-11-10 14:21 | CM.DPC ---
DCP Cont. Reviewed EMR and team rounds for status updates. Pt is getting a new CT today, she will also need Home Health referral prior to d/c. Anticipate home w/family 1-2 days.
[2024-11-10 15:49] LABS: Troponin I < 0.012 ng/mL (0.01-0.034)
[2024-11-10 19:00] VITALS: BP 120/86; PULSE 73; RESP 18; TEMP 36.4; O2SAT 96
[2024-11-10] MEDS: ACETAMINOPHEN 325 MG TABLET 650 MG PO (20:53)
[2024-11-11] MEDS: ACETAMINOPHEN 325 MG TABLET 650 MG PO ×2 (02:32→08:21)
[2024-11-11] MEDS: HYDROCODONE/ACET 5/325 TABLET 1 TAB PO (06:27)
[2024-11-11 06:28] LABS: Blood Urea Nitrogen 21 mg/dL (7-17); Calcium 10.6 mg/dL (8.4-10.2); Carbon Dioxide 29 mmol/L (22-32); Chloride 97 mmol/L (98-107); Estimated Glomerular Filt Rate 54 mL/min (>60); Glucose 107 mg/dL (70-99); HEMOLYSIS < 15 (0-50); Potassium 3.2 mmol/L (3.4-5.1); Sodium 136 mmol/L (137-145)
[2024-11-11] MEDS: BACLOFEN 10 MG TABLET PO (08:18)
[2024-11-11] MEDS: CHLORTHALIDONE 25 MG TABLET PO (08:18)
[2024-11-11] MEDS: FELODIPINE 5 MG 5 EACH PO (08:19)
[2024-11-11] MEDS: APIXABAN 5 MG TABLET 10 MG PO (08:19)
--- NOTE | 2024-11-11 10:04 | PT.IPTN ---
Current Diagnoses Other pulmonary embolism without acute cor pulmonale (11/06/24) Physical Therapy Treatment Note M2 PT-IP Current Condition Start: 11/08/24 12:20 Freq: NEEDED Status: Active Protocol: Document 11/08/24 09:45 AB (Rec: 11/08/24 12:39 AB [id number]) Physical Therapy Current Condition Current Condition Evaluation Date 11/08/24 Treatment Diagnosis PE; difficulty in walking Onset Date 11/06/24 M3 PT-IP Subjective Start: 11/08/24 12:20 Freq: NEEDED Status: Active Protocol: Document 11/11/24 10:04 AB (Rec: 11/11/24 12:36 AB [id number]) Subjective Physical Therapy Visit Type Type Treatment Note Visit Start Time 10:04 Visit Stop Time 10:30 Number of BACK WINDER Visits 0 Physical Therapy Visit Comments Patient Comments agreeable to do PT M4 PT-IP Mobility and Gait Start: 11/08/24 12:20 Freq: NEEDED Status: Active Protocol: Document 11/11/24 10:04 AB (Rec: 11/11/24 12:36 AB [id number]) PT-Bed Mobility Assessment Supine to Sit Supine to Sit Standby Assistance,Head of Bed Elevated,Bedrails PT-Transfer Assessment Sit to and From Stand Sit to and from Standby Assistance,1 Person Assistance,Use of Upper Stand Extremities Equipment Transfer Assistive Gait Belt,4 Wheeled Walker Device Orthotic/Prosthetic No Devices or Brace: Transfers Transfer Destination Chair Transfer Technique ambulated Transfer Ability Level of Assist Standby Assistance,1 Person Assistance,Use of Upper Extremities Comments Mobility Comments pt in bed and agreeable to do PT. supine to sit with HOB elevated. pt continues to have confusion and memory issues. reviewed use of 4WW; locking/unlocking brakes . pt needed repetitions to comprehend. sit to stand from bed SBA and cues for techniques and safety. pt ambulated in the hallway using 4WW SBA ~ 250 ft. pt ambulated back to her room and sat on the chair. Assessed ambulation without AD and completed ~ 30 ft SBA to CGA. positioned pt on the chair. call light and table placed within reach. pt's daughter called and will be going to [employer] to get DME pt needed. Gait Assessment Gait Gait Assistance Standby Assistance,Contact Guard Assist Required: Distance (Feet) 250 Able to Maintain Yes Weight Bearing Status During Gait Assistive Devices Assistive Device None,Gait Belt,4 Wheeled Walker Orthotic/Prosthetic No Devices or Brace: Factors Limiting Gait Function Factors Limiting Decreased Activity Tolerance,Decreased Strength, Gait Function Difficulty Following Directions,Pain,Poor Balance,Poor Safety Awareness M5 PT-IP Objective Assessments Start: 11/08/24 12:20 Freq: NEEDED Status: Active Protocol: Document 11/08/24 09:45 AB (Rec: 11/08/24 12:39 AB [id number]) Orientation Orientation/Cognition Level of Alertness Alert Orientation Name,Place,Situation Safety Awareness Decreased Safety Awareness Memory Description Short Term Impaired,Half-Way Impaired Gross Range of Motion Lower Extremity ROM Assessment Within Functional Limits Strength Lower Extremity Strength Assessment Right Impaired Hip 3+/5 Knee 3+/5 Muscle Tone Muscle Tone WNL Yes M6 PT-IP Treatment Start: 11/08/24 12:20 Freq: NEEDED Status: Active Protocol: Document 11/11/24 10:04 AB (Rec: 11/11/24 12:36 AB [id number]) Physical Therapy Treatment Education Education Provided Safety M7 PT-IP Assessment and Plan Start: 11/08/24 12:20 Freq: NEEDED Status: Active Protocol: Document 11/11/24 10:04 AB (Rec: 11/11/24 12:36 AB [id number]) PT Summary Assessment and Plan Potential Rehabilitation Fair Potential Summary Impairments Pain,ROM,Strength,Balance,Coordination,Sensation, Cognition,Bed Mobility,Transfers,Gait,Activity Tolerance Progress Towards Slow Progress - Other Goals Assessment Summary pt requiring SBA with mobility using 4WW. pt continues to have confusion and memory issues requiring cues for safety and use of 4WW. pt plans to go home and daughter will assist pt. Goals Bed Mobility Goal Independent Transfer Goal Independent,Four Wheeled Walker Gait Goal Independent,Four Wheel Walker Gait Distance 200 Other Goals Pt will ascend and descend 5 steps with B rails and no more than superv assistance to allow safe home entrance . Days to Meet Goals 5 Frequency of Treatment Frequency Of Once a Day Treatment Treatment Plan Physical Therapy Bed Mobility Training,Transfer Training,Gait Training, Treatment Plan Therapeutic Exercise,Balance Retraining,Discharge Planning,Neuromuscular Re-ed Recommendations To Nursing Amount of Assist 1 Person Assist Needed Discharge Recommendations PT Discharge Home with 27/10 Assist Available,Outpatient PT Recommendations Transportation Needs Private Vehicle at Discharge - PT assist 1
--- NOTE | 2024-11-11 11:09 | OT.IP.TRT ---
Current Diagnoses Other pulmonary embolism without acute cor pulmonale (11/06/24) Occupational Therapy Treatment Note M2 OT-IP Current Condition Start: 11/08/24 09:22 Freq: Status: Active Protocol: Document 11/08/24 09:22 [facility] (Rec: 11/08/24 09:36 [facility] Desktop) Occupational Therapy Current Condition Current Condition Evaluation Date 11/08/24 Treatment Diagnosis Pulmonary Embolism, acuter respiratory ffailure Diagnosis Onset Date 11/06/24 M3 OT- IP Subjective and Pain Start: 11/08/24 09:22 Freq: Status: Active Protocol: Document 11/11/24 11:10 [facility] (Rec: 11/11/24 11:22 [facility] Desktop) OT- Subjective Occupational Therapy Visit Type Type Treatment Note Visit Start Time 10:45 Visit Stop Time 11:09 Occupational Therapy Visit Comments Patient Comments Pt not wanting to shower but agreed to sponge off. Patient/Caregiver Pt not wanting to go home and states feels comfortable Goals in the hospital. OT Pain Assessment Pain When Pain Assessed During Mobility Pain Present Pain Present Pain Reported Location Right hip/SI area Pain Behaviors Facial Grimacing,Holding Area M4 OT- IP ADL's Start: 11/08/24 09:22 Freq: Status: Active Protocol: Document 11/11/24 11:10 [facility] (Rec: 11/11/24 11:22 [facility] Desktop) OT ADL-Bathing Bathing Type Bathing Type Sponge Bath Comments OT Bathing Comments Pt able to wash under her arms, armpits, and face after set-up assist and cues. M5 OT- IP IADL's Start: 11/08/24 09:22 Freq: Status: Active Protocol: Document 11/08/24 09:22 [facility] (Rec: 11/08/24 09:36 [facility] Desktop) OT-Instrumental Activities of Daily Living Home Safety Awareness Ability to Problem Able to Problem Solve Solve Emergency Situations Medication Management Medication No Deficits Identified Management Money Management Money Management No Deficits Identified Meal Preparation Meal Preparation Best to have assist or use of 4ww to carry items. Comments Occupational Therapy Supervisor Occupational Therapy Supervisor Best to have assist due to decreased dynamic balance Comments and activity tolerance. M6 OT- IP Functional Cognition Start: 11/08/24 09:22 Freq: Status: Active Protocol: Document 11/11/24 11:10 [facility] (Rec: 11/11/24 11:22 [facility] Desktop) Cognitive Factors Limiting Selfcare Function Cognitive Ability Level of Alertness Alert,Confusional State Attention Span Capable of Focused Attention,Unable to Sustain Ability Attention Memory Description Short Term Impaired Cognitive Comments Cognitive Assessment Pt very confused and needing step by step cues to for Comments safety and to help sequence through tasks. Pt states will state, I do not know. when asked any questions. At this time pt will need 24/7 assist for safety due to decreased STM and working memory. Able to show pt various activities to see if pt able to identify what is safe or not. Pt able to answer questions with 50% accuracy. M7 OT- IP Mobility and Balance Start: 11/08/24 09:22 Freq: Status: Active Protocol: Document 11/11/24 11:10 [facility] (Rec: 11/11/24 11:22 [facility] Desktop) OT- Bed Mobility Assessment Sit to Supine Sit to Supine Assist Standby Assistance OT-Transfer Assessment Sit to and From Stand Sit to and from Standby Assistance Stand Transfers Transfer Ability Standby Assistance Technique Transfer Destination Bed,Chair Devices Transfer Assistive Gait Belt,Front Wheeled Walker Devices Comments Mobility Comments Pt mixing up the fww with 4ww. At this time best pt will need someone with her to help sequence through task and safety awareness for all needs. OT- Balance Assessment Sitting Balance and Reactions Static Sitting Normal Balance Ability Dynamic Sitting Good Balance Ability Standing Balance and Reactions Static Standing Good Balance Ability Dynamic Standing Fair Balance Ability M8 OT- IP Objective Assessments Start: 11/08/24 09:22 Freq: Status: Active Protocol: Document 11/08/24 09:22 [facility] (Rec: 11/08/24 09:36 [facility] Desktop) OT Gross Range of Motion Upper Extremity Range of Motion Assessment Within Functional Limits OT Strength Upper Extremity Strength Assessment Within Functional Limits M9 OT- IP Assessment and Plan Start: 11/08/24 09:22 Freq: Status: Active Protocol: Document 11/11/24 11:10 [facility] (Rec: 11/11/24 11:22 [facility] Desktop) OT Summary Assessment and Plan Potential Rehabilitation Good Potential Analytic Complexity Moderate at Evaluation Summary OT Impairments Pain,Balance,Functional Mobility,Dressing,Toileting, Bathing,Toilet Transfers,Shower Transfers,Activity Tolerance Progress Towards Slow Progress due to Medical Issues,Slow Progress due Goals to Cognition Assessment Summary Pt still having poor safety awareness due to decreased STM. Pt not able to recall to scoot forwards, push up from surfaces or reach back prior to sitting down, and needing step by step cues for all activities. Pt just tends to state, I do not know. Pt will benefit from 24/7 assist and home health and would benefit from memory care. Goals Dressing Goal Standby Assistance Toileting Goal Standby Assistance Bathing Goal Standby Assistance Toilet Transfer Goal Standby Assistance Shower Transfer Goal Standby Assistance Days to Meet Goals 3 Treatment Plan OT Treatment Plan ADL Training,Functional Mobility,Patient/Family Education,Discharge Planning Other Treatment SHower Recommendations and Next Treatment Focus Discharge Recommendations OT Discharge Home with 24/7 Assist Available,Home Health Recommendations Home Equipment Needs Shower chair,4ww, fww, BSC Transportation Needs Private Vehicle at Discharge
[2024-11-11 12:00] VITALS: BP 142/75; PULSE 65; RESP 13; TEMP 36.6; O2SAT 96
--- NOTE | 2024-11-11 13:29 | PM.DS.IH.1 ---
History of Present Illness History of Present Illness Chief complaint: Back Pain Narrative: Pt is a 84yo woman with HTN, COPD, hyperlipidemia, and hx of prior lumbar back surgery who presented with acute onset of severe low back pain. The pt reports that yesterday morning out of the blue she developed severe lower back pain. She denies any trauma or inciting event. She had not been particularly active the day prior. The pain did not radiate into her legs, it was just centrally located in the lower back. The pain is sharp in nature. It makes it very challenging for her to move and ambulate, she can't find a comfortable position in bed. She denies any saddle anesthesia, new urinary incontinence. In the ED, CT of the lumbar spine was completed that was reportedly read as normal. She received Morphine, Zofran, Toradol, Tylenol, Robaxin, and Prednisone for the pain with some improvement in her symptoms. However, she was then noted to be hypoxic requiring 2L of oxygen. CT PE was completed that showed pulmonary emboli, and the pt was initiated on a Heparin drip. This morning, the pts main complaint is ongoing low back pain. She states it is still excrutiating, and now making her feel nauseous. She continues to deny and radicular symptoms. She states that she does not feel SOB, is is more annoyed with the [place] oxygen than anything. Discharge Providers Provider Date of admission: 11/06/24 19:06 Discharge Date: 11/11/24 Primary care physician: Grecia Tabor MD Consults: 11/06/24 19:23 Consult to Discharge Planning Routine Comment: 11/07/24 16:22 Consult to Occupational Therapy Evaluate & Treat Comment: Physician Instructions: Evaluate and treat Consult to Physical Therapy Evaluate & Treat Comment: Physician Instructions: Evaluate and Treat 11/11/24 08:44 Consult to Home Health Routine Comment: RN, PT, OT, HH Aide Reason For Exam: Pulmonary Embolism, HTN, Respiratory Failure Discharge provider: Grceia Tabor MD Summary Hospital Course Discharge Diagnosis: Pulmonary embolism Acute respiratory failure Acute low back pain Hypertension Hospital Course: The pt was admitted with acute low back pain and PE. She initially required oxygen supplementation that was weaned by the time of discharge. Echo was completed that was reassuring. She was started on Heparin that was transitioned to Eliquis after 48hrs. CT and MRI of the pts back were both largely unrevealing. Her pain was thought to be primarily due to muscle spasm/pain, with less nerve involvement. The pts back pain was controlled with narcotic pain medication in addition to baclofen and tylenol. Her pain did improve with PT during her hospitalization. She will be discharged home with the same medications and home health PT to continue. The day prior to discharge the pt developed SOB. She had a negative CXR, EKG, and labs. Her SOB was thought to be due to anxiety. She was ultimately discharged home stable, with her daughter present to help care for her initially as well. Exam Vital Signs (past 8 hours): - 11/11/24 12:00 Temperature 97.9 F Pulse Rate 65 Respiratory Rate 13 Blood Pressure 142/75 H Pulse Oximetry 96 Oxygen Flow Rate 0 Oxygen Delivery Method Room Air Oxygen Flow Rate 0 Narrative Exam Narrative: Gen: NAD, sitting in bed, appears comfortable CV: RRR, no murmurs Resp: clear to auscultation bilaterally, no wheezes or crackles Abd: soft, nontender, nondistended Back: no acute tenderness today Ext: no edema Objective Labs 11/10/24 08:55 11/11/24 04:50 Labs: Laboratory Results - last 24 hr 11/10/24 11/11/24 15:08 04:50 Sodium 136 L Potassium 3.2 L Chloride 97 L Carbon Dioxide 29 BUN 21 H Creatinine 1.03 Estimated GFR 54 L BUN/Creatinine Ratio 20.4 Glucose 107 H Calcium 10.6 H Troponin I < 0.012 [facility] Medical History Cervical stenosis of spine White coat syndrome with diagnosis of hypertension First degree AV block Arthritis Pneumonia Basal cell carcinoma (Unknown) Osteopenia (10/2012) Bilateral sciatica (~04/2017) Hyperlipidemia (Unknown) Chronic obstructive pulmonary disease Essential hypertension Rosacea Surgical History Hx of dilation and curettage History of colonoscopy Hx of bilateral cataract extraction Hx of tonsillectomy Social History household members: none Tobacco: How many years used: 5 second hand exposure: Yes (when I was a child my parents smoked all the time.) alcohol intake: current substance use type: does not use Discharge Plan Discharge Plan Patient Disposition: Home Health Service Discharge orders & Medications Prescriptions: New hydrocodone-acetaminophen 5-325 mg Tablet 1 tab PO Q6HR PRN (Reason: Pain, Moderate (4-6)) Qty: 30 0RF baclofen 10 mg Tablet 10 mg PO TID Qty: 60 0RF fluticasone propionate 50 mcg/actuation [place],Suspension 1 spray intranasal DAILY Qty: 8 0RF Eliquis 5 mg Tablet See Rx Instructions .ROUTE .COMPLEX Qty: 90 2RF Rx Instructions: Take 2 tablets twice/day for 5 days, then 1 tablet twice/day ongoing Continued chlorthalidone 25 mg tablet 25 mg PO DAILY felodipine 5 mg tablet extended release 24 hr 5 mg PO DAILY No Action acetaminophen 500 mg capsule 500 mg PO Q6H PRN (Reason: pain) Rx Instructions: Do not exceed 3g in 24 hour period. Follow up/Referrals: Grecia Tabor MD [Primary Care Provider, Family Practice] - 2 Weeks Diet/Activity/Treatments Diet: Diet as Tolerated and Regular Visit Report/Discharge Packet Stand Alone Forms: Patient Portal/API, Stroke Signs & Symptoms Discharge Data Primary Care Provider: Grecia Tabor Discharges patient from system. Discharge Date/Time: 11/11/24 14:50 Quality VTE Deep Vein Thrombosis/Pulmonary Embolism Present on Admission: Yes [facility] Charge Codes Discharge inpatient/observation: [id number]
--- NOTE | 2024-11-11 13:29 | CM.DPNOTE ---
DCP Continued: Reviewed EMR and team rounds for pt?s medical status. Per MD, pt cleared for discharge today with daughter, will need home health referral. Per PT/OT, recommending home with home health. DCP entered room, introduced self and role. Present in the room is pt's daughter, Brooke, who drove from [place] for initial pt recovery. DCP provided Medicare Choice list and discussed recommendations for home health. Pt identified a preference for [facility] from Medicare Choice list. DCP sent referral to [facility] via secure email. Pt daughter states she has been attempting to make appt with Dr. Ermias Rivera MD at [facility] and requested for this DCP to send clinicals to their office. Sent via fax. Plan: Anticipating dc home with daughter, Kulwant JOHNSON to follow with PT, OT, HH Aide. CM Team will continue to follow for coordination of discharge plans. DON Butterfield
--- NOTE | 2024-11-11 14:47 | PC.NURSE ---
Pt denies no issue at this time. in to see Orders for D/C received SL D/C intact. Home instructrions given w/ understanding Pt escorted by staff via W/C to waiting vehicle D/C in stable status.
== END 2024-11-11 14:50 | disposition home health service (06) | DRG 175 ==
LOC: ED 19:03 → AC 20:41
PROVIDERS: Internal Medicine; Admitting Provider Family Medicine; Emergency Provider Physician Assistant; PCP Family Medicine; Referring Provider Physician Assistant; Visit Provider Family Medicine
DX: I26.99 Other pulmonary embolism without acute cor pulmonale (principal); J96.01 Acute respiratory failure with hypoxia; M54.50 Low back pain, unspecified; I10 Essential (primary) hypertension; R94.31 Abnormal electrocardiogram [ECG] [EKG]; F41.9 Anxiety disorder, unspecified; Z98.890 Other specified postprocedural states; Z87.891 Personal history of nicotine dependence
CPT/HCPCS: 36415; 71045; 71275; 72131; 72148; 80048; 80053; 81003; 81015; 82550; 83880; 84484; 85014; 85018; 85025; 85049; 85610; 85730; 87077; 87086; 87147; 93005; 93306; 96361; 96365; 96366; 96375; 97116; 97129; 97162; 97166; 97530; 97535; 99285; G0378; J1644; J1885; J2270; J2405; Q9967